=== PATIENT | male | born 1950 | race Caucasian/White ===

== ENCOUNTER → 2023-01-31 08:59 | Outpatient (BNVA) | payer OTHER, SELFPAY | PROVIDERS: PCP Internal Medicine Hematology; Visit Provider Internal Medicine | DX: Z51.81 Encounter for therapeutic drug level monitoring (principal); Z79.01 Long term (current) use of anticoagulants; Z95.2 Presence of prosthetic heart valve | CPT/HCPCS: 85610; 99202 ==

== ENCOUNTER → 2023-02-03 08:36 | Outpatient (BNVA) | payer OTHER, SELFPAY | PROVIDERS: PCP Internal Medicine Hematology; Visit Provider Internal Medicine | DX: Z51.81 Encounter for therapeutic drug level monitoring (principal); Z79.01 Long term (current) use of anticoagulants; Z95.2 Presence of prosthetic heart valve | CPT/HCPCS: 85610; 99211 ==

== ENCOUNTER → 2023-02-06 08:18 | Outpatient (BNVA) | payer OTHER, SELFPAY | PROVIDERS: PCP Internal Medicine Hematology; Visit Provider Internal Medicine | DX: Z95.2 Presence of prosthetic heart valve (principal); Z51.81 Encounter for therapeutic drug level monitoring; Z79.01 Long term (current) use of anticoagulants | CPT/HCPCS: 85610; 99211 ==

== ENCOUNTER → 2023-02-10 08:01 | Outpatient (BNVA) | payer OTHER, SELFPAY | PROVIDERS: PCP Internal Medicine Hematology; Visit Provider Internal Medicine | DX: Z95.2 Presence of prosthetic heart valve (principal); Z51.81 Encounter for therapeutic drug level monitoring; Z79.01 Long term (current) use of anticoagulants | CPT/HCPCS: 85610; 99211 ==

== ENCOUNTER → 2023-02-13 08:01 | Outpatient (BNVA) | payer OTHER, SELFPAY | PROVIDERS: PCP Internal Medicine Hematology; Visit Provider Internal Medicine | DX: Z95.2 Presence of prosthetic heart valve (principal); Z51.81 Encounter for therapeutic drug level monitoring; Z79.01 Long term (current) use of anticoagulants | CPT/HCPCS: 85610; 99211 ==

== ENCOUNTER → 2023-02-19 08:03 | Outpatient (BNVA) | payer OTHER, SELFPAY | PROVIDERS: PCP Internal Medicine Hematology; Visit Provider Internal Medicine | DX: Z51.81 Encounter for therapeutic drug level monitoring (principal); Z79.01 Long term (current) use of anticoagulants; Z95.2 Presence of prosthetic heart valve | CPT/HCPCS: 85610; 99211 ==

== ENCOUNTER → 2023-02-25 08:17 | Outpatient (BNVA) | payer OTHER, SELFPAY | PROVIDERS: PCP Internal Medicine Hematology; Visit Provider Internal Medicine | DX: Z51.81 Encounter for therapeutic drug level monitoring (principal); Z79.01 Long term (current) use of anticoagulants; Z95.2 Presence of prosthetic heart valve | CPT/HCPCS: 85610; 99211 ==

== ENCOUNTER → 2023-03-05 08:26 | Outpatient (BNVA) | payer OTHER, SELFPAY | PROVIDERS: PCP Internal Medicine Hematology; Visit Provider Internal Medicine | DX: Z51.81 Encounter for therapeutic drug level monitoring (principal); Z79.01 Long term (current) use of anticoagulants; Z95.2 Presence of prosthetic heart valve | CPT/HCPCS: 85610; 99211 ==

== ENCOUNTER 2023-03-12 08:18 | Outpatient (AMB) | payer OTHER, SELFPAY ==
--- NOTE | 2023-03-12 08:52 | MHC.OFFVISCO ---
Intake Intake Visit Reasons: Anticoagulation Allergies No Known Allergies Allergy (Verified 03/12/23 08:57) Medication List - Last Reconciled 03/12/23 by Yen Mitchell RN aspirin (Adult Aspirin Regimen) 81 mg PO DAILY atenolol 25 mg PO DAILY atorvastatin 20 mg PO DAILY clonazepam (Klonopin) 1 mg PO .prn dutasteride (Avodart) 0.5 mg PO DAILY irbesartan 75 mg PO DAILY warfarin 5 mg See Protocol PO DAILY Nursing Note INR: 2.4- in therapeutic range Medications and supplements reviewed- no changes No changes in health, diet, medications, or supplements, Denies any signs and symptoms of bleeding or bruising or clotting. 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 Illness/Depression: Yes (ANXIETY) Coding Level of Care Code Est Patient Level 1 Diagnoses Current use of anticoagulant therapy Z79.01 Results AMB INR Fingerstick AMB INR Fingerstick 2.4 Last Edit by Yen Mitchell RN on 03/12/23 08:53 Assessment & Plan Assessment & Plan (1) Current use of anticoagulant therapy: Code(s): Z79.01 - [facility] (current) use of anticoagulants Category: Medical
[2023-03-12 08:54] LABS: Prothrombin Time Whole Bld POC 29.2 sec (11.1-13.5); ~PT, ~INR - Anti Coag Clinic 2.4 (0.9-1.1)
== END 2023-03-12 09:00 | disposition home or self-care (01) ==
LOC: HO.ACS 08:18
PROVIDERS: PCP Internal Medicine Hematology; Visit Provider Internal Medicine
DX: Z79.01 Long term (current) use of anticoagulants (principal)

== ENCOUNTER → 2023-03-12 08:18 | Outpatient (BNVA) | payer OTHER, SELFPAY | PROVIDERS: PCP Internal Medicine Hematology; Visit Provider Internal Medicine | DX: Z51.81 Encounter for therapeutic drug level monitoring (principal); Z79.01 Long term (current) use of anticoagulants; Z95.2 Presence of prosthetic heart valve | CPT/HCPCS: 85610; 99211 ==

== ENCOUNTER 2023-03-27 08:25 | Outpatient (AMB) | payer OTHER, SELFPAY ==
--- NOTE | 2023-03-27 08:44 | MHC.OFFVISCO ---
Intake Intake Visit Reasons: Anticoagulation Allergies No Known Allergies Allergy (Verified 03/27/23 08:33) Medication List - Last Reconciled 03/27/23 by Madhavi Bella RN aspirin (Adult Aspirin Regimen) 81 mg PO DAILY atenolol 25 mg PO DAILY atorvastatin 20 mg PO DAILY clonazepam (Klonopin) 1 mg PO .prn dutasteride (Avodart) 0.5 mg PO DAILY irbesartan 75 mg PO DAILY warfarin 5 mg See Protocol PO DAILY Nursing Note Amb to ACS feeling well Medications and supplements reviewed No changes in health, diet, medications, or supplements Denies any unusual signs and symptoms of bruising, bleeding Denies any new Chest pain, SOB, or clotting INR: 2.6 in therapeutic range Nutritional guidance given: balance greens and reds in diet, in moderation, be consistent Dose: continue usual dosing; 5mg daily F/U INR: 18 days, is having bloodwork from caseworker 04/07 Patient verbalizes understanding of instructions given with accurate read back/ teach back of dosing Anti-Coag Initial Assessment Social Hx Patient Tobacco Use Status: Never used Tobacco alcohol intake: never Cardiovascular Hx: HTN and Other (AORTIC VALVL TAVR 01/02/22- R/T STENOSIS- MOTHER HX ) Blood Disorder Hx: Hyperlipidemia Hx: Prostate (BPH) Neurological Hx: Other (ANXIETY ) 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 Illness/Depression: Yes (ANXIETY) Coding Level of Care Code Est Patient Level 1 Diagnoses Current use of anticoagulant therapy Z79.01 Time Spent (min) 15 Results AMB INR Fingerstick AMB INR Fingerstick 2.6 Last Edit by Madhavi Bella RN on 03/27/23 08:42 INR is in range Assessment & Plan Assessment & Plan (1) Current use of anticoagulant therapy: Code(s): Z79.01 - [facility] (current) use of anticoagulants Category: Medical
[2023-03-27 09:26] LABS: Prothrombin Time Whole Bld POC 30.6 sec (11.1-13.5); ~PT, ~INR - Anti Coag Clinic 2.6 (0.9-1.1)
== END 2023-03-27 08:51 | disposition home or self-care (01) ==
LOC: HO.ACS 08:25
PROVIDERS: PCP Internal Medicine Hematology; Visit Provider Internal Medicine
DX: Z79.01 Long term (current) use of anticoagulants (principal)

== ENCOUNTER → 2023-03-27 08:25 | Outpatient (BNVA) | payer OTHER, SELFPAY | PROVIDERS: PCP Internal Medicine Hematology; Visit Provider Internal Medicine | DX: Z51.81 Encounter for therapeutic drug level monitoring (principal); Z79.01 Long term (current) use of anticoagulants; Z95.2 Presence of prosthetic heart valve | CPT/HCPCS: 85610; 99211 ==

== ENCOUNTER 2023-04-29 07:59 | Outpatient (AMB) | payer OTHER, SELFPAY ==
--- NOTE | 2023-04-29 08:09 | MHC.OFFVISCO ---
Intake Intake Visit Reasons: Anticoagulation Allergies No Known Allergies Allergy (Verified 04/29/23 08:04) Medication List - Last Reconciled 04/29/23 by Yen Mitchell RN aspirin (Adult Aspirin Regimen) 81 mg PO DAILY atenolol 25 mg PO DAILY atorvastatin 20 mg PO DAILY clonazepam (Klonopin) 1 mg PO .prn dutasteride (Avodart) 0.5 mg PO DAILY irbesartan 75 mg PO DAILY warfarin 5 mg See Protocol PO DAILY Nursing Note INR: 2.5- in therapeutic range Medications and supplements reviewed- no changes No changes in health, diet, medications, or supplements, Denies any signs and symptoms of bleeding or bruising or clotting. 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 Illness/Depression: Yes (ANXIETY) Coding Level of Care Code Est Patient Level 1 Diagnoses Current use of anticoagulant therapy Z79.01 Assessment & Plan Assessment & Plan (1) Current use of anticoagulant therapy: Code(s): Z79.01 - extermination supervisor (current) use of anticoagulants Category: Medical
[2023-04-29 08:10] LABS: Prothrombin Time Whole Bld POC 29.8 sec (11.1-13.5); ~PT, ~INR - Anti Coag Clinic 2.5 (0.9-1.1)
== END 2023-04-29 08:17 | disposition home or self-care (01) ==
LOC: HO.ACS 07:59
PROVIDERS: PCP Internal Medicine Hematology; Visit Provider Internal Medicine
DX: Z79.01 Long term (current) use of anticoagulants (principal)

== ENCOUNTER → 2023-04-29 07:59 | Outpatient (BNVA) | payer OTHER, SELFPAY | PROVIDERS: PCP Internal Medicine Hematology; Visit Provider Internal Medicine | DX: Z95.2 Presence of prosthetic heart valve (principal); Z51.81 Encounter for therapeutic drug level monitoring; Z79.01 Long term (current) use of anticoagulants | CPT/HCPCS: 85610; 99211 ==

== ENCOUNTER 2023-05-27 07:58 | Outpatient (AMB) | payer OTHER, SELFPAY ==
[2023-05-27 08:15] LABS: Prothrombin Time Whole Bld POC 22.7 sec (11.1-13.5); ~PT, ~INR - Anti Coag Clinic 1.9 (0.9-1.1)
--- NOTE | 2023-05-27 08:21 | MHC.OFFVISCO ---
Intake Intake Visit Reasons: Anticoagulation Allergies No Known Allergies Allergy (Verified 05/27/23 08:09) Medication List - Last Reconciled 05/27/23 by Madhavi Bella RN aspirin (Adult Aspirin Regimen) 81 mg PO DAILY atenolol 25 mg PO DAILY atorvastatin 20 mg PO DAILY clonazepam (Klonopin) 1 mg PO .prn dutasteride (Avodart) 0.5 mg PO DAILY irbesartan 75 mg PO DAILY warfarin 5 mg See Protocol PO DAILY Nursing Note Amb to ACS feeling well Medications and supplements reviewed, sts he had his cardiology appt last week at [facility] and the gradient of thickening has decreased from 20 to 9, sts his cardiologoist sts he can come off the warfarin end of July and they will do an echo 3 months after that No other changes in health, diet, medications, or supplements Denies any unusual signs and symptoms of bruising, bleeding Denies any new Chest pain, SOB, or clotting INR: 1.9 just below therapeutic range, sts he hasn't changed diet, not aware of any extra greens, maybe less reds ([place] tomatoes) Nutritional guidance given: no greens today then balance greens and reds in diet Dose: already took warfarin today so will increase to 7.5mg tomorrow (vs 5mg) then resume usual dosing;5mg daily F/U INR: 4 weeks Patient verbalizes understanding of instructions given with accurate read back/ teach back of dosing Anti-Coag Initial Assessment Social Hx Patient Tobacco Use Status: Never used Tobacco alcohol intake: never Cardiovascular Hx: HTN and Other (AORTIC VALVL TAVR 01/02/22- R/T STENOSIS- MOTHER HX ) Blood Disorder Hx: Hyperlipidemia Hx: Prostate (BPH) Neurological Hx: Other (ANXIETY ) Cancer HX: Yes (LYMPHOMA - 1 YEAR AGO - ABD [facility]- NON HODGKINS LYMPHOMA - MONITORED ) Psych. Illness/Depression: Yes (ANXIETY) Coding Level of Care Code Est Patient Level 1 Diagnoses Current use of anticoagulant therapy Z79.01 Time Spent (min) 15 Assessment & Plan Assessment & Plan (1) Current use of anticoagulant therapy: Code(s): Z79.01 - [facility] (current) use of anticoagulants Category: Medical
== END 2023-05-27 08:28 | disposition home or self-care (01) ==
LOC: HO.ACS 07:58
PROVIDERS: PCP Internal Medicine Hematology; Visit Provider Internal Medicine
DX: Z79.01 Long term (current) use of anticoagulants (principal)

== ENCOUNTER → 2023-05-27 07:58 | Outpatient (BNVA) | payer OTHER, SELFPAY | PROVIDERS: PCP Internal Medicine Hematology; Visit Provider Internal Medicine | DX: Z95.2 Presence of prosthetic heart valve (principal); Z51.81 Encounter for therapeutic drug level monitoring; Z79.01 Long term (current) use of anticoagulants | CPT/HCPCS: 85610; 99211 ==

== ENCOUNTER 2023-06-26 08:17 | Outpatient (AMB) | payer OTHER, SELFPAY ==
[2023-06-26 08:24] LABS: Prothrombin Time Whole Bld POC 30.3 sec (11.1-13.5); ~PT, ~INR - Anti Coag Clinic 2.5 (0.9-1.1)
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
== END 2023-06-26 08:35 | disposition home or self-care (01) ==
LOC: HO.ACS 08:17
PROVIDERS: PCP Internal Medicine Hematology; Visit Provider Internal Medicine
DX: Z79.01 Long term (current) use of anticoagulants (principal)

== ENCOUNTER → 2023-06-26 08:17 | Outpatient (BNVA) | payer OTHER, SELFPAY | PROVIDERS: PCP Internal Medicine Hematology; Visit Provider Internal Medicine | DX: Z95.2 Presence of prosthetic heart valve (principal); Z51.81 Encounter for therapeutic drug level monitoring; Z79.01 Long term (current) use of anticoagulants | CPT/HCPCS: 85610; 99211 ==

== ENCOUNTER 2023-07-31 08:04 | Outpatient (AMB) | payer OTHER, SELFPAY ==
--- NOTE | 2023-07-31 08:32 | MHC.OFFVISCO ---
Intake Intake Visit Reasons: Anticoagulation Allergies No Known Allergies Allergy (Verified 07/31/23 08:17) Medication List - Last Reconciled 07/31/23 by Aida Alfaro RN aspirin (Adult Aspirin Regimen) 81 mg PO DAILY atenolol 25 mg PO DAILY atorvastatin 20 mg PO DAILY clonazepam (Klonopin) 1 mg PO .prn dutasteride (Avodart) 0.5 mg PO DAILY irbesartan 75 mg PO DAILY warfarin 5 mg See Protocol PO DAILY Nursing Note INR: 1.0 in therapeutic range FOR BEING OFF WARFARIN Medications and supplements reviewed PT IS GOING OFF WARFARIN [place] [facility] [facility] , Denies any signs and symptoms of bleeding or bruising or clotting. 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
== END 2023-07-31 08:36 | disposition home or self-care (01) ==
LOC: HO.ACS 08:04
PROVIDERS: PCP Internal Medicine Hematology; Visit Provider Internal Medicine
DX: Z79.01 Long term (current) use of anticoagulants (principal)

== ENCOUNTER → 2023-07-31 08:04 | Outpatient (BNVA) | payer OTHER, SELFPAY | PROVIDERS: PCP Internal Medicine Hematology; Visit Provider Internal Medicine | DX: Z95.2 Presence of prosthetic heart valve (principal); Z51.81 Encounter for therapeutic drug level monitoring; Z79.01 Long term (current) use of anticoagulants | CPT/HCPCS: 85610; 99211 ==

== ENCOUNTER 2023-10-02 09:53 | Outpatient (AMB) | payer OTHER, SELFPAY ==
[2023-10-02 10:13] LABS: Prothrombin Time Whole Bld POC 23.9 sec (11.1-13.5)
--- NOTE | 2023-10-02 10:34 | MHC.OFFVISCO ---
Intake Intake Visit Reasons: Anticoagulation Allergies No Known Allergies Allergy (Verified 10/02/23 10:15) Medication List - Last Reconciled 10/02/23 by Aida Alfaro RN aspirin (Adult Aspirin Regimen) 81 mg PO DAILY atenolol 25 mg PO DAILY atorvastatin 20 mg PO DAILY clonazepam (Klonopin) 1 mg PO .prn dutasteride (Avodart) 0.5 mg PO DAILY irbesartan 75 mg PO DAILY nirmatrelvir-ritonavir 300 mg (150 mg x 2)-100 mg (Paxlovid) 0 ea PO warfarin 5 mg See Protocol PO DAILY Nursing Note INR: 2.0 in therapeutic range Medications and supplements reviewed BACK ON WARFARIN DUE TO VALVE THICKENING - DOAC NOT RECOMMENDED BY LILIA + TOMAS, STARTED PAXLOVID LAST FRIDAY, COMPLETED YESTERDAY, PAXLOVID MAY POSSBILY LOWER THE INR UP TO 2 WEEKS PER MICROMEDEX Denies any signs and symptoms of bleeding or bruising or clotting. 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 Illness/Depression: Yes (ANXIETY) Coding Level of Care Code Est Patient Level 1 Diagnoses Current use of anticoagulant therapy Z79.01 Assessment & Plan Assessment & Plan (1) Current use of anticoagulant therapy: Code(s): Z79.01 - detention (current) use of anticoagulants Category: Medical
== END 2023-10-02 10:40 | disposition home or self-care (01) ==
LOC: HO.ACS 09:53
PROVIDERS: PCP Internal Medicine Hematology; Visit Provider Internal Medicine
DX: Z79.01 Long term (current) use of anticoagulants (principal)

== ENCOUNTER → 2023-10-02 09:53 | Outpatient (BNVA) | payer OTHER, SELFPAY | PROVIDERS: PCP Internal Medicine Hematology; Visit Provider Internal Medicine | DX: Z95.2 Presence of prosthetic heart valve (principal); Z51.81 Encounter for therapeutic drug level monitoring; Z79.01 Long term (current) use of anticoagulants | CPT/HCPCS: 85610; 99211 ==

== ENCOUNTER 2023-10-07 08:51 | Outpatient (AMB) | payer OTHER, SELFPAY ==
[2023-10-07 08:58] LABS: Prothrombin Time Whole Bld POC 26.3 sec (11.1-13.5); ~PT, ~INR - Anti Coag Clinic 2.2 (0.9-1.1)
--- NOTE | 2023-10-07 09:02 | MHC.OFFVISCO ---
Intake Intake Visit Reasons: Anticoagulation Allergies No Known Allergies Allergy (Verified 10/07/23 08:51) Medication List - Last Reconciled 10/07/23 by Madhavi Espinoza RN aspirin (Adult Aspirin Regimen) 81 mg PO DAILY atenolol 25 mg PO DAILY atorvastatin 20 mg PO DAILY clonazepam (Klonopin) 1 mg PO .prn dutasteride (Avodart) 0.5 mg PO DAILY irbesartan 75 mg PO DAILY nirmatrelvir-ritonavir 300 mg (150 mg x 2)-100 mg (Paxlovid) 0 ea PO warfarin 5 mg See Protocol PO DAILY Nursing Note INR: 2.2 in therapeutic range Medications and supplements reviewed No changes in health, diet, medications, or supplements, Denies any signs and symptoms of bleeding or bruising or clotting. 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 Illness/Depression: Yes (ANXIETY) Coding Level of Care Code Est Patient Level 1 Diagnoses Current use of anticoagulant therapy Z79.01 Assessment & Plan Assessment & Plan (1) Current use of anticoagulant therapy: Code(s): Z79.01 - penit[facility]iary (current) use of anticoagulants Category: Medical
== END 2023-10-07 09:05 | disposition home or self-care (01) ==
LOC: HO.ACS 08:51
PROVIDERS: PCP Internal Medicine Hematology; Visit Provider Internal Medicine
DX: Z79.01 Long term (current) use of anticoagulants (principal)

== ENCOUNTER → 2023-10-07 08:51 | Outpatient (BNVA) | payer OTHER, SELFPAY | PROVIDERS: PCP Internal Medicine Hematology; Visit Provider Internal Medicine | DX: Z95.2 Presence of prosthetic heart valve (principal); Z51.81 Encounter for therapeutic drug level monitoring; Z79.01 Long term (current) use of anticoagulants | CPT/HCPCS: 85610; 99211 ==

== ENCOUNTER 2023-10-21 09:35 | Outpatient (AMB) | payer OTHER, SELFPAY ==
[2023-10-21 09:42] LABS: Prothrombin Time Whole Bld POC 28.3 sec (11.1-13.5); ~PT, ~INR - Anti Coag Clinic 2.4 (0.9-1.1)
--- NOTE | 2023-10-21 09:48 | MHC.OFFVISCO ---
Intake Intake Visit Reasons: Anticoagulation Allergies No Known Allergies Allergy (Verified 10/21/23 09:37) Medication List - Last Reconciled 10/21/23 by Madhavi Espinoza RN aspirin (Adult Aspirin Regimen) 81 mg PO DAILY atenolol 25 mg PO DAILY atorvastatin 20 mg PO DAILY clonazepam (Klonopin) 1 mg PO .prn dutasteride (Avodart) 0.5 mg PO DAILY irbesartan 75 mg PO DAILY nirmatrelvir-ritonavir 300 mg (150 mg x 2)-100 mg (Paxlovid) 0 ea PO warfarin 5 mg See Protocol PO DAILY Nursing Note INR: 2.4 in therapeutic range of 2-3 Medications and supplements reviewed No changes in health, diet, medications, or supplements, Denies any signs and symptoms of bleeding or bruising or clotting. Bleeding, bruising, clotting discussed Nutritional guidance given Dose: continue usual dose of 5mg daily pt is planning to transition to home meter soon, has submitted paperwork. 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 Illness/Depression: Yes (ANXIETY) Coding Level of Care Code Est Patient Level 1 Diagnoses Current use of anticoagulant therapy Z79.01 Assessment & Plan Assessment & Plan (1) Current use of anticoagulant therapy: Code(s): Z79.01 - intermediate school teacher (current) use of anticoagulants Category: Medical
== END 2023-10-21 09:53 | disposition home or self-care (01) ==
LOC: HO.ACS 09:35
PROVIDERS: PCP Internal Medicine Hematology; Visit Provider Internal Medicine
DX: Z79.01 Long term (current) use of anticoagulants (principal)

== ENCOUNTER → 2023-10-21 09:35 | Outpatient (BNVA) | payer OTHER, SELFPAY | PROVIDERS: PCP Internal Medicine Hematology; Visit Provider Internal Medicine | DX: Z95.2 Presence of prosthetic heart valve (principal); Z51.81 Encounter for therapeutic drug level monitoring; Z79.01 Long term (current) use of anticoagulants | CPT/HCPCS: 85610; 99211 ==

== ENCOUNTER → 2023-11-11 11:18 | Outpatient (BNVA) | payer OTHER, SELFPAY | PROVIDERS: PCP Internal Medicine Hematology; Visit Provider Internal Medicine ==

== ENCOUNTER 2023-12-10 08:38 | Outpatient (AMB) | payer OTHER, SELFPAY ==
[2023-12-10 08:48] LABS: Prothrombin Time Whole Bld POC 23.6 sec (11.1-13.5)
--- NOTE | 2023-12-10 08:48 | MHC.OFFVISCO ---
Intake Intake Visit Reasons: Anticoagulation Allergies No Known Allergies Allergy (Verified 12/10/23 08:40) Nursing Note PT.HAS STARTED FLOMAX AND TADALAFIL(FOR BPH). NEITHER OF THESE MEDS WILL INTERACT WITH WARFARIN. PT.DENIES ANY CP,SOB OR SX OF BLEEDING. CONTINUE PRESENT DOSE AND FOLLOW-UIP IN 4 WEEKS GOOD UNDERSTANDING OF DOSING INSTR. 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 Illness/Depression: Yes (ANXIETY) Coding Level of Care Code Est Patient Level 1 Diagnoses Current use of anticoagulant therapy Z79.01 Assessment & Plan Assessment & Plan (1) Current use of anticoagulant therapy: Code(s): Z79.01 - ad terminal makeup operator (current) use of anticoagulants Category: Medical
--- NOTE | 2023-12-10 08:49 | MHC.OFFVISCO ---
Intake Intake Visit Reasons: Anticoagulation Allergies No Known Allergies Allergy (Verified 12/10/23 08:40) Nursing Note PT.HAS STARTED FLOMAX AND TADALAFIL(FOR BPH) NO CP,SOB,DIET/MED CHANGES,FALLS ORN SX OF BLEEDING. CONTINUE PRESENT DOSE AND FOLLOW-UP IN 4 WEEKS. GOOD UNDERSTANDING OF DOSING INSTR. 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 Illness/Depression: Yes (ANXIETY) Coding Level of Care Code Est Patient Level 1 Diagnoses Current use of anticoagulant therapy Z79.01 Assessment & Plan Assessment & Plan (1) Current use of anticoagulant therapy: Code(s): Z79.01 - residence counselor (current) use of anticoagulants Category: Medical
--- NOTE | 2023-12-10 09:43 | MHC.OFFVISCO ---
Intake Intake Visit Reasons: Anticoagulation Allergies No Known Allergies Allergy (Verified 12/10/23 08:40) Nursing Note PT.HAS STARTED FLOMAX AND TADALAFIL(FOR BPH) NO CP,SOB,DIET/MED CHANGES,FALLS ORN SX OF BLEEDING. CONTINUE PRESENT DOSE AND FOLLOW-UP IN 4 WEEKS. GOOD UNDERSTANDING OF DOSING INSTR. 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 Illness/Depression: Yes (ANXIETY) Coding Diagnoses Current use of anticoagulant therapy Z79.01 Assessment & Plan Assessment & Plan (1) Current use of anticoagulant therapy: Code(s): Z79.01 - terminal computer operator (current) use of anticoagulants Category: Medical
== END 2023-12-10 08:59 | disposition home or self-care (01) ==
LOC: HO.ACS 08:38
PROVIDERS: PCP Internal Medicine Hematology; Visit Provider Internal Medicine
DX: Z79.01 Long term (current) use of anticoagulants (principal)

== ENCOUNTER → 2023-12-10 08:38 | Outpatient (BNVA) | payer OTHER, SELFPAY | PROVIDERS: PCP Internal Medicine Hematology; Visit Provider Internal Medicine | DX: Z95.2 Presence of prosthetic heart valve (principal); Z51.81 Encounter for therapeutic drug level monitoring; Z79.01 Long term (current) use of anticoagulants | CPT/HCPCS: 85610; 99211 ==

== ENCOUNTER 2024-01-07 08:18 | Outpatient (AMB) | payer OTHER, SELFPAY ==
[2024-01-07 08:39] LABS: Prothrombin Time Whole Bld POC 24.7 sec (11.1-13.5); ~PT, ~INR - Anti Coag Clinic 2.1 (0.9-1.1)
--- NOTE | 2024-01-07 08:53 | MHC.OFFVISCO ---
Intake Intake Visit Reasons: Anticoagulation Allergies No Known Allergies Allergy (Verified 01/07/24 08:30) Medication List - Last Reconciled 01/07/24 by Aida Alfaro RN aspirin (Adult Aspirin Regimen) 81 mg PO DAILY atenolol 25 mg PO DAILY atorvastatin 20 mg PO DAILY clonazepam (Klonopin) 1 mg PO .prn dutasteride (Avodart) 0.5 mg PO DAILY irbesartan 150 mg PO DAILY tadalafil 5 mg PO DAILY tamsulosin (Flomax) 0.4 mg PO BEDTIME warfarin 5 mg See Protocol PO DAILY Nursing Note Pt bought own meter from grid inspector, brought in for meter to meter correlation, he stated he had several error msgs as he was figuring the meter out, brief poc technique explained- enc to completely read instructions, education for entire meter booked for 01/27/24. INR: 21 in therapeutic range pt meter 2.0 Medications and supplements reviewed- B/P MED INCREASED BY ROLL ICER Denies any signs and symptoms of bleeding or bruising or clotting. Bleeding, bruising, clotting discussed Nutritional guidance given - PT STATES HE HAS BEEN EATING PRUNES AND NOTICED THAT HIS INR HAS BEEN LOWER AND COULD HEAR THE DIFFERENCE WITH HIS VALVE, he found they do contain vit k , WANTS TO KEEP PRUNES IN HIS DIET Dose: INCEASE WARFARIN DOSE 7.5MG X 1 DAY/ 5MG X 6 DAYS F/U INR: F/U INR 01/27/24 will discuss home testing next visit with pt and have sign home meter documentation. 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 Illness/Depression: Yes (ANXIETY) Coding Level of Care Code Est Patient Level 1 Diagnoses Current use of anticoagulant therapy Z79.01 Assessment & Plan Assessment & Plan (1) Current use of anticoagulant therapy: Code(s): Z79.01 - remote computer terminal operator (current) use of anticoagulants Category: Medical Medications: New cholecalciferol (vitamin D3) 25 mcg PO DAILY
== END 2024-01-07 09:09 | disposition home or self-care (01) ==
PROVIDERS: PCP Internal Medicine Hematology; Visit Provider Internal Medicine
DX: Z79.01 Long term (current) use of anticoagulants (principal)

== ENCOUNTER → 2024-01-07 08:18 | Outpatient (BNVA) | payer OTHER, SELFPAY | PROVIDERS: PCP Internal Medicine Hematology; Visit Provider Internal Medicine | DX: Z95.2 Presence of prosthetic heart valve (principal); Z51.81 Encounter for therapeutic drug level monitoring; Z79.01 Long term (current) use of anticoagulants | CPT/HCPCS: 85610; 99211 ==

== ENCOUNTER 2024-01-27 07:56 | Outpatient (AMB) | payer OTHER, SELFPAY ==
[2024-01-27 08:13] LABS: Prothrombin Time Whole Bld POC 27.3 sec (11.1-13.5); ~PT, ~INR - Anti Coag Clinic 2.3 (0.9-1.1)
--- NOTE | 2024-01-27 08:35 | MHC.OFFVISCO ---
Intake Intake Visit Reasons: Anticoagulation Allergies No Known Allergies Allergy (Verified 01/27/24 08:03) Medication List - Last Reconciled 01/27/24 by Aida Alfaro RN aspirin (Adult Aspirin Regimen) 81 mg PO DAILY atenolol 25 mg PO DAILY atorvastatin 20 mg PO DAILY cholecalciferol (vitamin D3) 25 mcg PO DAILY clonazepam (Klonopin) 1 mg PO .prn dutasteride (Avodart) 0.5 mg PO DAILY irbesartan 150 mg PO DAILY tadalafil 5 mg PO DAILY tamsulosin (Flomax) 0.4 mg PO BEDTIME warfarin 5 mg See Protocol PO DAILY Nursing Note Complete meter training with patient meter to meter correlation matched pt demiostrated proficient meter skills with understanding pt agrees to come monthly to ACS appt or prn result, and to call with out of range INRs and to notify ACS of when testing, with health or medication changes,and still report any s/sx of bleeding to ACS and his health care providers. He is to have an Echo with cardiology- it is possible he may go on a DOAC - although they have not been approved for Valvular disease- some cardiologists are using them. Pt to notfy ACS INR: 2.3 in therapeutic range Medications and supplements reviewed No changes in health, diet, medications, or supplements, Denies any signs and symptoms of bleeding or bruising or clotting. 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 Illness/Depression: Yes (ANXIETY) Coding Level of Care Code Est Patient Level 1 Diagnoses Current use of anticoagulant therapy Z79.01 Assessment & Plan Assessment & Plan (1) Current use of anticoagulant therapy: Code(s): Z79.01 - insurance sales specialist (current) use of anticoagulants Category: Medical
== END 2024-01-27 08:41 | disposition home or self-care (01) ==
LOC: HO.ACS 07:56
PROVIDERS: PCP Internal Medicine Hematology; Visit Provider Internal Medicine
DX: Z79.01 Long term (current) use of anticoagulants (principal)

== ENCOUNTER → 2024-01-27 07:56 | Outpatient (BNVA) | payer OTHER, SELFPAY | PROVIDERS: PCP Internal Medicine Hematology; Visit Provider Internal Medicine | DX: Z95.2 Presence of prosthetic heart valve (principal); Z51.81 Encounter for therapeutic drug level monitoring; Z79.01 Long term (current) use of anticoagulants | CPT/HCPCS: 85610; 99211 ==

== ENCOUNTER 2024-02-24 08:00 | Outpatient (AMB) | payer OTHER, SELFPAY ==
[2024-02-24 08:06] LABS: Prothrombin Time Whole Bld POC 26.9 sec (11.1-13.5); ~PT, ~INR - Anti Coag Clinic 2.2 (0.9-1.1)
--- NOTE | 2024-02-24 08:14 | MHC.OFFVISCO ---
Intake Intake Visit Reasons: Anticoagulation Allergies No Known Allergies Allergy (Verified 02/24/24 08:01) Medication List - Last Reconciled 02/24/24 by Madhavi Espinoza RN aspirin (Adult Aspirin Regimen) 81 mg PO DAILY atenolol 25 mg PO DAILY atorvastatin 20 mg PO DAILY cholecalciferol (vitamin D3) 25 mcg PO DAILY clonazepam (Klonopin) 1 mg PO .prn dutasteride (Avodart) 0.5 mg PO DAILY irbesartan 150 mg PO DAILY tadalafil 5 mg PO DAILY tamsulosin (Flomax) 0.4 mg PO BEDTIME warfarin 5 mg See Protocol PO DAILY Nursing Note INR: 2.2 in therapeutic range of 2-3 Medications and supplements reviewed No changes in health, diet, medications, or supplements, Denies any signs and symptoms of bleeding or bruising or clotting. 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 Illness/Depression: Yes (ANXIETY) Coding Level of Care Code Est Patient Level 1 Diagnoses Current use of anticoagulant therapy Z79.01 Assessment & Plan Assessment & Plan (1) Current use of anticoagulant therapy: Code(s): Z79.01 - intermediate teacher (current) use of anticoagulants Category: Medical
== END 2024-02-24 08:18 | disposition home or self-care (01) ==
LOC: HO.ACS 08:00
PROVIDERS: PCP Internal Medicine Hematology; Visit Provider Internal Medicine
DX: Z79.01 Long term (current) use of anticoagulants (principal)

== ENCOUNTER → 2024-02-24 08:00 | Outpatient (BNVA) | payer OTHER, SELFPAY | PROVIDERS: PCP Internal Medicine Hematology; Visit Provider Internal Medicine | DX: Z95.2 Presence of prosthetic heart valve (principal); Z51.81 Encounter for therapeutic drug level monitoring; Z79.01 Long term (current) use of anticoagulants | CPT/HCPCS: 85610; 99211 ==

== ENCOUNTER 2024-03-24 08:05 | Outpatient (AMB) | payer OTHER, SELFPAY ==
--- NOTE | 2024-03-24 08:21 | MHC.OFFVISCO ---
Intake Intake Visit Reasons: Anticoagulation Allergies No Known Allergies Allergy (Verified 03/24/24 08:15) Medication List - Last Reconciled 03/24/24 by Yen Mitchell RN aspirin (Adult Aspirin Regimen) 81 mg PO DAILY atenolol 25 mg PO DAILY atorvastatin 20 mg PO DAILY cholecalciferol (vitamin D3) 25 mcg PO DAILY clonazepam (Klonopin) 1 mg PO .prn dutasteride (Avodart) 0.5 mg PO DAILY irbesartan 150 mg PO DAILY tadalafil 5 mg PO DAILY warfarin 5 mg See Protocol PO DAILY Nursing Note INR: 2.3- in therapeutic range of 2-3 Medications and supplements reviewed No changes in health, diet, medications, or supplements, Denies any signs and symptoms of bleeding or bruising or clotting. Bleeding, bruising, clotting discussed Nutritional guidance given Dose: 5mg x 6, 7.5mg x 1 F/U INR: 4 weeks Patient verbalizes understanding of instructions given pt has coag meter- date and time updated, reviewed test ing procedure with pt. 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 Illness/Depression: Yes (ANXIETY) Coding Level of Care Code Est Patient Level 1 Diagnoses Current use of anticoagulant therapy Z79.01 Assessment & Plan Assessment & Plan (1) Current use of anticoagulant therapy: Code(s): Z79.01 - senior care (current) use of anticoagulants Category: Medical Medications: New alfuzosin ER administer after the same meal each day 10 mg PO DAILY
[2024-03-24 08:22] LABS: ~PT, ~INR - Anti Coag Clinic 2.3 (0.9-1.1)
== END 2024-03-24 08:29 | disposition home or self-care (01) ==
LOC: HO.ACS 08:05
PROVIDERS: PCP Internal Medicine Hematology; Visit Provider Internal Medicine
DX: Z79.01 Long term (current) use of anticoagulants (principal)

== ENCOUNTER → 2024-03-24 08:05 | Outpatient (BNVA) | payer OTHER, SELFPAY | PROVIDERS: PCP Internal Medicine Hematology; Visit Provider Internal Medicine | DX: Z95.2 Presence of prosthetic heart valve (principal); Z51.81 Encounter for therapeutic drug level monitoring; Z79.01 Long term (current) use of anticoagulants | CPT/HCPCS: 85610; 99211 ==

== ENCOUNTER 2024-04-21 07:58 | Outpatient (AMB) | payer OTHER, SELFPAY ==
--- NOTE | 2024-04-21 08:09 | MHC.OFFVISCO ---
Intake Intake Visit Reasons: Anticoagulation Allergies No Known Allergies Allergy (Verified 04/21/24 07:59) Medication List - Last Reconciled 04/21/24 by Yen Mitchell RN alfuzosin ER 10 mg PO DAILY aspirin (Adult Aspirin Regimen) 81 mg PO DAILY atenolol 25 mg PO DAILY atorvastatin 20 mg PO DAILY cholecalciferol (vitamin D3) 25 mcg PO DAILY clonazepam (Klonopin) 1 mg PO .prn dutasteride (Avodart) 0.5 mg PO DAILY irbesartan 150 mg PO DAILY tadalafil 5 mg PO DAILY warfarin 5 mg See Protocol PO DAILY Nursing Note INR: 2.7- in therapeutic range of 2-3 Medications and supplements reviewed No changes in health, diet, medications, or supplements, Denies any signs and symptoms of bleeding or bruising or clotting. 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 Illness/Depression: Yes (ANXIETY) Coding Level of Care Code Est Patient Level 1 Diagnoses Current use of anticoagulant therapy Z79.01 Assessment & Plan Assessment & Plan (1) Current use of anticoagulant therapy: Code(s): Z79.01 - local intermodal truck driver (current) use of anticoagulants Category: Medical
[2024-04-21 08:10] LABS: Prothrombin Time Whole Bld POC 32.5 sec (11.1-13.5); ~PT, ~INR - Anti Coag Clinic 2.7 (0.9-1.1)
== END 2024-04-21 08:16 | disposition home or self-care (01) ==
LOC: HO.ACS 07:58
PROVIDERS: PCP Internal Medicine Hematology; Visit Provider Internal Medicine
DX: Z79.01 Long term (current) use of anticoagulants (principal)

== ENCOUNTER → 2024-04-21 07:58 | Outpatient (BNVA) | payer OTHER, SELFPAY | PROVIDERS: PCP Internal Medicine Hematology; Visit Provider Internal Medicine | DX: Z95.2 Presence of prosthetic heart valve (principal); Z51.81 Encounter for therapeutic drug level monitoring; Z79.01 Long term (current) use of anticoagulants | CPT/HCPCS: 85610; 99211 ==

== ENCOUNTER 2024-06-04 10:30 | Outpatient (AMB) | payer OTHER, SELFPAY ==
[2024-06-04 10:39] LABS: Prothrombin Time Whole Bld POC 23.1 sec (11.1-13.5); ~PT, ~INR - Anti Coag Clinic 1.9 (0.9-1.1)
--- NOTE | 2024-06-04 10:53 | MHC.OFFVISCO ---
Intake Intake Visit Reasons: Anticoagulation Allergies No Known Allergies Allergy (Verified 06/04/24 10:35) Medication List - Last Reconciled 06/04/24 by Aida Alfaro RN alfuzosin ER 10 mg PO DAILY aspirin (Adult Aspirin Regimen) 81 mg PO DAILY atenolol 25 mg PO DAILY atorvastatin 20 mg PO DAILY cholecalciferol (vitamin D3) 25 mcg PO DAILY clonazepam (Klonopin) 1 mg PO .prn dutasteride (Avodart) 0.5 mg PO DAILY irbesartan 150 mg PO DAILY tadalafil 5 mg PO DAILY warfarin 5 mg See Protocol PO DAILY Nursing Note INR 1.9 out of therapeutic range Medications and supplements reviewed Patient status: s/p retuximab tx 06/02/24 -for non hodkin lymphoma- will be weekly (fri) x 4 weeks pre med with tylenol , claritin and methylprednisalone Medications or supplements: immunotherapy Diet: good Denies any signs and symptoms of bleeding or clotting or unusual bruising Bleeding, bruising, clotting discussed Nutritional guidance given: avoid greens x 2 days Dose: booster dose today 7.5mg ( x 2 days this week) then resume 7.5mg x 1 day/ 5mg x 6 days F/U INR Date : 1 week from home meter then 06/18/24 in clinic or homemeter as he becomes immunocompromised ?? Patient verbalizing understanding of instructions given. 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 Illness/Depression: Yes (ANXIETY) Questionnaires HAS-BLED Does the patient had uncontrolled Hypertension?: No Does the patient have renal disease?: No Does the patient have liver disease?: No Does the patient have a history of stroke?: No Has the patient had major bleeding or predisposition to bleeding?: No Does the patient have labile INRs?: No Is the patient over 65 years of age?: Yes Is the patient on medications that gives them a predisposition to bleeding?: Yes Does the patient use alcohol?: No HAS-BLED Score: 2 CHADSVASC Age: 66-74 Gender: Male Does the patient have a history of CHF?: No Does the patient have a history of Hypertension?: Yes Does the patient have a history of Stroke/TIA/Thromboembolism?: No (VALVE THROMBOSIS) Does the patient have a history of Vascular Disease (prior MO, PAD or aortic plaque)?: Yes (valve) Does the patient have a history of Diabetes?: No CHADS VACS Score: 3 Sina Prediction Score Rsk VTE Active Cancer: Yes (LYMPHOMA) Previous VTE, excluding superficial vein thrombosis: No Reduced mobility: No Already known Thrombophilic Condition: Yes (VALVE PROCEDURE , AORTIC STENOSIS , LYMPHOMA) With-in last month Trauma and/or Surgery: No Elderly 70 year or older: Yes Heart and/or Respiratory Failure: No Acute Myocardial infarction and/or Ischemic Stroke: No (THE PT HAS NOT HAD AN MO OR A STROKE OR TIA BUT HAS HALT AND A TAVR 1 YEAR AGO ) Acute Infection and/or Rheumatologic Disorder: No Obesity (BMI 30 or greater): No Ongoing Hormonal Treatment: No Score: 7 Sina Score less than 4; Low Risk of VTE Sina Score 4 or greater; High Risk of VTE Coding Level of Care Code Est Patient Level 1 Diagnoses Current use of anticoagulant therapy Z79.01 Results AMB INR Fingerstick AMB INR Fingerstick 1.9 Last Edit by Aida Alfaro RN on 06/04/24 10:40 manual entry Assessment & Plan Assessment & Plan (1) Current use of anticoagulant therapy: Code(s): Z79.01 - marine oil terminal superintendent (current) use of anticoagulants Category: Medical
== END 2024-06-04 11:00 | disposition home or self-care (01) ==
LOC: HO.ACS 10:30
PROVIDERS: PCP Internal Medicine Hematology; Visit Provider Internal Medicine
DX: Z79.01 Long term (current) use of anticoagulants (principal)

== ENCOUNTER → 2024-06-04 10:30 | Outpatient (BNVA) | payer OTHER, SELFPAY | PROVIDERS: PCP Internal Medicine Hematology; Visit Provider Internal Medicine | DX: Z95.2 Presence of prosthetic heart valve (principal); Z79.01 Long term (current) use of anticoagulants; Z51.81 Encounter for therapeutic drug level monitoring | CPT/HCPCS: 85610; 99211 ==

== ENCOUNTER → 2024-06-11 13:35 | Outpatient (BNVA) | payer OTHER, SELFPAY | PROVIDERS: PCP Internal Medicine Hematology; Visit Provider Internal Medicine ==

== ENCOUNTER → 2024-06-16 14:50 | Outpatient (BNVA) | payer OTHER, SELFPAY | PROVIDERS: PCP Internal Medicine Hematology; Visit Provider Internal Medicine ==

== ENCOUNTER 2024-06-24 15:48 | Outpatient (AMB) | payer OTHER, SELFPAY ==
--- NOTE | 2024-06-24 15:58 | MHC.OFFVISCO ---
Intake Intake Visit Reasons: Anticoagulation Allergies No Known Allergies Allergy (Verified 06/16/24 14:57) Nursing Note INR: 2.3 in therapeutic range Medications and supplements reviewed PT COMPLETED 4 SERIES OF IMMUNO HTERAPY AND TOLERATED IT WELL, AND WILL RECEIVE MAINTENANCE THERAPY AGAIN X 4 WEEKS IN AUGUST. iNR HAS REMAINED STABLE Denies any signs and symptoms of bleeding or bruising or clotting. 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
== END 2024-06-24 16:01 | disposition home or self-care (01) ==
LOC: HO.ACS 15:48
PROVIDERS: PCP Internal Medicine Hematology; Visit Provider Internal Medicine
DX: Z79.01 Long term (current) use of anticoagulants (principal)

== ENCOUNTER → 2024-06-24 15:48 | Outpatient (BNVA) | payer OTHER, SELFPAY | PROVIDERS: PCP Internal Medicine Hematology; Visit Provider Internal Medicine | DX: Z95.2 Presence of prosthetic heart valve (principal); Z79.01 Long term (current) use of anticoagulants; Z51.81 Encounter for therapeutic drug level monitoring | CPT/HCPCS: 99211 ==

== ENCOUNTER 2024-07-23 09:29 | Outpatient (AMB) | payer OTHER, SELFPAY ==
--- NOTE | 2024-07-23 09:46 | MHC.OFFVISCO ---
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 Illness/Depression: Yes (ANXIETY) Coding Level of Care Code Est Patient Level 1 Diagnoses Current use of anticoagulant therapy Z79.01 Results AMB INR Fingerstick AMB INR Fingerstick 2.7 Last Edit by Aida Alfaro RN on 07/23/24 09:40 MANUAL ENTRY Assessment & Plan Assessment & Plan (1) Current use of anticoagulant therapy: Code(s): Z79.01 - senior living (current) use of anticoagulants Category: Medical
[2024-07-23 09:49] LABS: Prothrombin Time Whole Bld POC 32.6 sec (11.1-13.5); ~PT, ~INR - Anti Coag Clinic 2.7 (0.9-1.1)
== END 2024-07-23 09:53 | disposition home or self-care (01) ==
LOC: HO.ACS 09:29
PROVIDERS: PCP Internal Medicine Hematology; Visit Provider Internal Medicine
DX: Z79.01 Long term (current) use of anticoagulants (principal)

== ENCOUNTER → 2024-07-23 09:29 | Outpatient (BNVA) | payer OTHER, SELFPAY | PROVIDERS: PCP Internal Medicine Hematology; Visit Provider Internal Medicine | DX: Z95.2 Presence of prosthetic heart valve (principal); Z79.01 Long term (current) use of anticoagulants; Z51.81 Encounter for therapeutic drug level monitoring | CPT/HCPCS: 85610; 99211 ==

== ENCOUNTER 2024-09-07 08:58 | Outpatient (AMB) | payer OTHER, SELFPAY ==
[2024-09-07 09:08] LABS: ~PT, ~INR - Anti Coag Clinic 2.8 (0.9-1.1)
--- NOTE | 2024-09-07 09:16 | MHC.OFFVISCO ---
Intake Intake Visit Reasons: Anticoagulation Allergies No Known Allergies Allergy (Verified 09/07/24 09:01) Medication List - Last Reconciled 09/07/24 by Madhavi Espinoza, ZEUS alfuzosin ER 10 mg PO DAILY aspirin (Adult Aspirin Regimen) 81 mg PO DAILY atenolol 25 mg PO DAILY atorvastatin 20 mg PO DAILY chlorhexidine gluconate 0.12% PO cholecalciferol (vitamin D3) 25 mcg PO DAILY clonazepam (Klonopin) 1 mg PO .prn dutasteride (Avodart) 0.5 mg PO DAILY irbesartan 150 mg PO DAILY tadalafil 5 mg PO DAILY warfarin 5 mg See Protocol PO DAILY Nursing Note INR: 2.8 in therapeutic range of 2-3 Medications and supplements reviewed No changes in health, diet, medications, or supplements, Denies any signs and symptoms of bleeding or bruising or clotting. 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 Illness/Depression: Yes (ANXIETY) Coding Level of Care Code Est Patient Level 2 Diagnoses Current use of anticoagulant therapy Z79.01 Assessment & Plan Assessment & Plan (1) Current use of anticoagulant therapy: Code(s): Z79.01 - terminal gauger supervisor (current) use of anticoagulants Category: Medical
== END 2024-09-07 09:30 | disposition home or self-care (01) ==
LOC: HO.ACS 08:58
PROVIDERS: PCP Internal Medicine Hematology; Visit Provider Internal Medicine
DX: Z79.01 Long term (current) use of anticoagulants (principal)

== ENCOUNTER → 2024-09-07 08:58 | Outpatient (BNVA) | payer OTHER, SELFPAY | PROVIDERS: PCP Internal Medicine Hematology; Visit Provider Internal Medicine | DX: Z95.2 Presence of prosthetic heart valve (principal); Z79.01 Long term (current) use of anticoagulants; Z51.81 Encounter for therapeutic drug level monitoring | CPT/HCPCS: 85610; 99212 ==

== ENCOUNTER 2024-09-28 09:01 | Outpatient (AMB) | payer OTHER, SELFPAY ==
[2024-09-28 09:18] LABS: Prothrombin Time Whole Bld POC 35.5 sec (11.1-13.5)
--- NOTE | 2024-09-28 09:22 | MHC.OFFVISCO ---
Intake Intake Visit Reasons: Anticoagulation Allergies No Known Allergies Allergy (Verified 09/28/24 09:07) Medication List - Last Reconciled 09/28/24 by Madhavi Bella, ZEUS alfuzosin ER 10 mg PO DAILY aspirin (Adult Aspirin Regimen) 81 mg PO DAILY atenolol 25 mg PO DAILY atorvastatin 20 mg PO DAILY chlorhexidine gluconate 0.12% PO cholecalciferol (vitamin D3) 25 mcg PO DAILY clonazepam (Klonopin) 1 mg PO .prn dutasteride (Avodart) 0.5 mg PO DAILY irbesartan 150 mg PO DAILY tadalafil 5 mg PO DAILY warfarin 5 mg See Protocol PO DAILY Nursing Note Amb to [facility] feeling wel, pt brought in own home meter (not in the [facility] home meter program) sts he has the meter for emergencies if there are weather issues sts he also gets his INR drawn when he has his infusions Medications and supplements reviewed No other changes in health, diet, medications, or supplements, Denies any signs and symptoms of bleeding, bruising, or clotting. Bleeding, bruising, clotting discussed INR: 3.0 top of therapeutic range Dose: continue usual dosing 5mg x 3 days and 7.5mg x 4 days Nutritional guidance given: have a good green today to bring INR lower in range, eat a balanced diet and be consistent F/U INR: 4 weeks per pt request, sts he will be having his Infusion on Thursday 10/26 and will call us with INR on 10/27 pt used meter while in visit, had some issues with placing sample onto the strip, trouble shooting done and given stategies for better sample placement INR on meter 2.9 Patient verbalizes understanding of instructions given Anti-Coag Initial Assessment Social Hx Patient Tobacco Use Status: Never used Tobacco alcohol intake: never Cardiovascular Hx: HTN and Other Blood Disorder Hx: Hyperlipidemia Hx: Prostate Neurological Hx: Other 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 Illness/Depression: Yes (ANXIETY) Coding Level of Care Code Est Patient Level 2 Diagnoses Current use of anticoagulant therapy Z79.01 Time Spent (min) 30 Assessment & Plan Assessment & Plan (1) Current use of anticoagulant therapy: Code(s): Z79.01 - termite control servicer (current) use of anticoagulants Category: Medical
--- OUTSIDE RECORDS SUMMARY | 2024-09-28 09:25 | XMS_ITS ---
Author Organization Kody Morgan MD Address [address] [place] [id number] Care Team Providers Care Turntable Operator Name Role Phone Kody Morgan Primary Care Provider [phone] REASON FOR VISIT PET/CT Results - 08/12/24 Encounters Encounter Location Date Provider Diagnosis Kody Morgan MD [address] [facility] [address] [place] [id number] 08/13/2024 Kody Morgan Plan Of Treatment Next Appt Details Provider Name:Kody Jama ier, 11/08/2024 11:15:00 AM, [address], [address], [place], [place], [id number], Progress Notes * Joseph TALAVERADOB:[birth year] (73 yo M)Acc No.[id number]:08/13/2024 Patient:?Joseph Talavera :1950???Age:73 Y???Sex:Male Address:[address] [place], [address] * true * Date:? Generated for Christiani deonte/Brandi/eTransmitting on:?09/28/2024 09:25 AM EST
--- OUTSIDE RECORDS SUMMARY | 2024-09-28 09:25 | XMS_ITS | Encounter Summary ---
Author Organization [facility] Address [address] [place] [id number] Care Team Providers Care Land Acquisition Specialist Name Role Phone Renny Lieberman MD Unavailable [phone] Joseph Talavera MD Primary Care Provider [phone] Renny Lieberman MD Primary Care Provider [phone] Pcp, No Primary Care Provider Unavailabl e Encounter Details Date Type Department Care Team (Late Contact Info) Description 02/16/2021 Scanned Document [facility] [place] [address], [address] [place] [address] Renny Lieberman MD [address] [facility] [address] [place], [place] [id number] Social History Tobacco Use Types Packs/Day Years Used Date Smoking Tobacco: Never Smokeless Tobacco: Never Sex and Gender Information Value Date Recorded Sex Assigned at [facility] not to disclose 06/2024 8:09 PM EST Gender Identity Not on file Sexual Orientation Not on file documented as of this encounter Plan of Treatment Upcoming Encounters Date Type Department Care Team (Late Contact Info) Description 03/11/2025 11:30 AM EDT Appointment [facility] Department of Dermatology [place] [address] [place] [phone] Karolina Price PA-C [address] [place], [place] [id number] documented as of this encounter Visit Diagnoses Not on filedocumented in this encounter Care Teams Land Acquisition Specialist Relationship Specialty Start Date End Date Joseph Talavera MD [address] [place] [id number] PCP - General Internal Medicine 12/25/20 04/17/23 Renny Lieberman MD [address] [place] [address] PCP - General Cardiovascular Disease 04/18/23 01/06/24 Pcp, No PCP - General General Medicine 01/07/24 Renny Lieberman MD [address] [place] [address] Primary Map Compiler Cardiovascular Disease 12/13/20 documented as of this encounter
--- OUTSIDE RECORDS SUMMARY | 2024-09-28 09:25 | XMS_ITS ---
Author Organization Kody Morgan MD Address [address] [place], [place] [id number] Care Team Providers Care Forming Mill Operator Name Role Phone Kody Morgan Primary Care Provider Allergies No Known Allergies REASON FOR VISIT New patient/ est care Medications Medication SIG (Take, Route, Frequency, Duration) Notes Start Date End Date Status Atorvastatin Calcium 20 MG 1 tablet Oral ly Once a day Active Flomax 0.4 MG 1 capsule Orally Onc e a day Active KlonoPIN 1 MG 1 tablet Orally Once a day Active Vitamin D 25 MCG (1000 UT) 1 tablet Oral ly Once a day for 30 day(s) Active Tadalafil 5 MG 1 tablet as needed O rally Once a day for 30 day(s) Active Warfarin Sodium 5 MG 1 tablet Orally Onc e a day Active Avodart 0.5 MG 1 capsule Orally Onc e a day Active Atenolol 25 MG 1 tablet Orally Once a day Active Irbesartan 75 MG 2 tablets Orally Onc e a day Active Aspirin 81 81 MG 1 tablet Orally Once a day for 30 day(s) Active Social History Tobacco Use: Social History Observation Description Date Details (start date - stop date) Never Smoker NA - NA Tobacco Use/Smoking Question Answer Notes Patient is a nonsmoker Additional Findings: Tobacco Non-User Cu rrent non-smoker, currently using no form of tobacco Alcohol Screen Question Answer Notes Did you have a drink containing alcohol in the p ast year? No Points 0 Interpretation Negative Problems Problem Type SNOMED Code ICD Code Onset Dates Problem Status W/U Status Risk Notes Problem 6342888588353 S/P TAVR (transcatheter aortic valve replacement) (Z95.2) Active confirmed Problem 380393212 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 Problem 91652210 Essential hypertension (I10) Active confirmed Problem 83966189 Prostatism (N40.0) Active confirmed Problem 29102813 Hypercholesterem ia (E78.00) Active confirmed Vital Signs Blood pressure systolic 114 mm Hg 08/02/20 24 Blood pressure diastolic 52 mm Hg 024 Height 68 in 08/02/2024 Weight 163 lbs 08/02/2024 BMI 24.78 kg/m2 08/02/2024 Encounters Encounter Location Date Provider Diagnosis Kody Morgan MD [address] [place], [place] [id number] 08/02/2024 Kody Morgan Essential hypertensi on I10 ; 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 ; Indolent non-Hodgkins lymphoma C85.80 ; Hypercholesteremia E78.00 and S/P TAVR (transcatheter aortic valve replacement) Z95.2 Assessments Encounter Date Diagnosis (ICD Code) Assessment Notes Treatment Notes Treatment Clinical Notes Section Notes 08/02/2024 Essential hypertensi on (ICD-10 - I10) doing well, will cntinue current regiment 08/02/2024 Prostatism (ICD-10 - N40.0) taking meds. seen by urology and had a reisdual of 200 08/02/2024 Indolent non-Hodgkin s lymphoma (ICD-10 - C85.80) starting to get treatment 08/02/2024 Hypercholesteremia (ICD-10 - E78.00) is followed at [facility] when he get infusions, will continue current regiment and will continue to monitor 08/02/2024 S/P TAVR (transcatheter aortic valve replacement) (ICD-10 - Z95.2) is followed in [place] Plan Of Treatment Medication Medication Name Sig Start Date Stop Date Notes Atorvastatin Calcium 20 MG 1 tablet Orally Once a day Flomax 0.4 MG 1 capsule Orally Once a day Warfarin Sodium 5 MG 1 tablet Orally Once a day Avodart 0.5 MG 1 capsule Orally Once a day Atenolol 25 MG 1 tablet Orally Once a day Irbesartan 75 MG 2 tablets Orally Once a day Treatment Notes Assessment Notes Essential hypertension doing well, will cntinue current regiment Prostatism taking meds. seen by urology and had a reisdual of 200 Indolent non-Hodgkins lymphoma starting to get treatment Hypercholesteremia is followed at [facility] when he get infusions, will continue current regiment and will continue to monitor S/P TAVR (transcatheter aort ic valve replacement) is followed in [facility] Appt Details Follow Up: 3 Months, Reason: Provider Name:Kody Jama ier, 11/08/2024 11:15:00 AM, [address], [address], [place], [place], [id number], Progress Notes * Joseph TALAVERADOB:[birth year] (73 yo M)Acc No.[id number]:08/02/2024 Progress Notes Patient:?Joseph Talavera Provider:?Kody Morgan MD :1950???Age:73 Y???Sex:Male Yuan e:08/02/2024 Address:[address] [place], [place] [id number] Subjective: * Chief Complaints: * ???New patient/ est care * HPI: ???Symptom(s):? patient is a 73 yo male , new patient here to establish care. had reteximab for non hodgkins lymphoma. * ROS:?General/Constitutional:?Patient denies?chills , fatigue , fever , headache.?ENT:?Patient denies?decreased sense of smell , any loss of taste , sore throat.?Respiratory:?Patient denies?shortness of breath with exertion.?Cardiovascular:?Patient denies?chest pain with exertion , chest pain at rest.?Gastrointestinal:?Patient complaining of?has some constipation has lost some weight from the lymphoma.?Musculoskeletal:?Patient denies?muscle aches.?Peripheral Vascular:?Patient denies?red and blue toes.? * Medical History:? * Surgical History:? * Hospitalization/Major Diagno stic Procedure:? * Family History:?Father: 96 y rs.?Mother: 74 yrs.?1 brother(s) . .? Father sepsis at 96 Mother 1 son 24 skiing accident. * Social History:?Tobacco Use:?Tobacco Use/Smoking?Patient is a?nonsmoker,?Additional Findings: Tobacco Non-User?Current non-smoker, currently using no form of tobacco.?Drugs/Alcohol:?Alcohol Screen?Did you have a drink containing alcohol in the past year??No,?Points?0,?Interpretation?Negative.?Miscellaneous:?no Caffeine. Exercise: yes, gym cardio. Home smoke detector use: yes. Marital status: . Occupation: weeks/months/years, retired. no Travel outside of the [place]. * Medications:?TakingTadalafil 5 MG Tablet 1 tablet as needed Orally Once a dayVitamin D 25 MCG (1000 UT) Tablet 1 tablet Orally Once a dayWarfarin Sodium 5 MG Tablet 1 tablet Orally Once a dayKlonoPIN 1 MG Tablet 1 tablet Orally Once a dayFlomax 0.4 MG Capsule 1 capsule Orally Once a dayAvodart 0.5 MG Capsule 1 capsule Orally Once a dayAtorvastatin Calcium 20 MG Tablet 1 tablet Orally Once a dayIrbesartan 75 MG Tablet 2 tablets Orally Once a dayAspirin 81 81 MG Tablet Delayed Release 1 tablet Orally Once a dayAtenolol 25 MG Tablet 1 tablet Orally Once a dayMedication List reviewed and reconciled with the patientTaking Tadalafil 5 MG Tablet 1 tablet as needed Orally Once a dayTaking Vitamin D 25 MCG (1000 UT) Tablet 1 tablet Orally Once a dayTaking Warfarin Sodium 5 MG Tablet 1 tablet Orally Once a dayTaking KlonoPIN 1 MG Tablet 1 tablet Orally Once a dayTaking Flomax 0.4 MG Capsule 1 capsule Orally Once a dayTaking Avodart 0.5 MG Capsule 1 capsule Orally Once a dayTaking Atorvastatin Calcium 20 MG Tablet 1 tablet Orally Once a dayTaking Irbesartan 75 MG Tablet 2 tablets Orally Once a dayTaking Aspirin 81 81 MG Tablet Delayed Release 1 tablet Orally Once a dayTaking Atenolol 25 MG Tablet 1 tablet Orally Once a dayMedication List reviewed and reconciled with the patient * Allergies:?N.K.D.A.yes[Aller gies Verified] Objective: * Vitals:?Ht:68, Wt:163, BMI:2 4.78, BP:114/52. * Examination: ???General Examination: ?GENERAL APPEARANCE:?alert, well hydrated, in no distress.?HEAD:?normocephalic.?SKIN:?good turgor.?HEART:?no murmurs, rubs, gallops , regular rate and rhythm.?LUNGS:?no wheezes, rales, rhonchi , good air movement , clear to auscultation bilaterally.?ABDOMEN:?soft, nontender, nondistended no masses. a small bulge in the rt inguinal area.? Assessment: * Assessment: 1.?Essential hypertension - I10 (Primary)?2.?Prostatism - N40.0?3.?Indolent non-Hodgkins lymphoma - C85.80?4.?Hypercholesteremia - E78.00?5.?S/P TAVR (transcatheter aortic valve replacement) - Z95.2? Plan: * Treatment: 2.?Prostatism? Continue Flomax Capsule, 0.4 MG, 1 capsule, Orally, Once a day;?Continue Avodart Capsule, 0.5 MG, 1 capsule, Orally, Once a day.?? Notes: taking meds. seen by urology and had a reisdual of 200?? 3.?Indolent non-Hodgkins lym phoma? Notes: starting to get treatment?? 4.?Hypercholesteremia? Continue Atorvastatin Calcium Tablet, 20 MG, 1 tablet, Orally, Once a day.?? Notes: is followed at [facility] when he get infusions, will continue current regiment and will continue to monitor?? 5.?S/P TAVR (transcatheter a ortic valve replacement)? Continue Warfarin Sodium Tablet, 5 MG, 1 tablet, Orally, Once a day.?? Notes: is followed in [place]?? * Procedure Codes:? * Follow Up:?3 Months * * Sign off status: Completed true * Provider:?Kody Morgan MD Date:?10/03/2023 Generated for Tacos clemons/Brandi/Sinitting on:?09/28/2024 09:24 AM EST History and Physical Notes * HPI (History of Present Illness) Category Sub-Category Detail Notes Category Not es Symptom(s) patient is a 73 yo male , new patient here to establish care. had reteximab for non hodgkins lymphoma. Examination Category Sub-Category Detail Notes Category Not es General Examination GENERAL APPEARANCE: alert, w ell hydrated, in no distress HEAD: normocephalic HEART: no murmurs, rubs, ga llops , regular rate and rhythm LUNGS: no wheezes, rales, r honchi , good air movement , clear to auscultation bilaterally ABDOMEN: soft, nontender, non distended no masses. a small bulge in the rt inguinal area SKIN: good turgor
--- OUTSIDE RECORDS SUMMARY | 2024-09-28 09:25 | XMS_ITS | Patient Health Record ---
Author Organization Kody Morgan MD Address [address] [place], [place] [id number] Care Team Providers Care Retail Sales Lead Name Role Phone Kody Morgan Primary Care Provider Allergies No Known Allergies Reason For Referral No Information Medications Medication SIG (Take, Route, Frequency, Duration) Notes Start Date End Date Status Warfarin Sodium 5 MG 1 tablet Orally Onc e a day Active Avodart 0.5 MG 1 capsule Orally Onc e a day Active Atenolol 25 MG 1 tablet Orally Once a day Active Irbesartan 75 MG 2 tablets Orally Onc e a day Active Atorvastatin Calcium 20 MG 1 tablet Oral [...] Once a day for 30 day(s) Active Aspirin 81 81 MG 1 tablet [...] Problem Status W/U Status Risk Notes Problem 68953057 Prostatism (N40.0) Active confirmed Problem 35946094 Essential hypertension (I10) Active confirmed Problem 77895918 Hypercholesterem ia (E78.00) Active confirmed Problem 6873007690799 S/P TAVR (transcatheter aortic valve replacement) (Z95.2) Active confirmed Problem 159385556 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 Vital Signs Blood pressure diastolic 52 mm Hg 08/02/2024 Height 68 in 08/02/2024 Blood pressure systolic 114 mm Hg 08/02/2024 Weight 163 lbs 08/02/2024 BMI 24.78 kg/m2 08/02/2024 Encounters Encounter Location Date Provider Diagnosis Kody Morgan MD [address] [place] [address] Drive [address] [place], [place] [id number] 08/02/2024 Kody Morgan Essential hypertensi on I10 ; 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 ; Indolent non-Hodgkins lymphoma C85.80 ; Hypercholesteremia E78.00 and S/P TAVR (transcatheter aortic valve replacement) Z95.2 Kody Morgan MD [address] [place] [address] [place] [phone] 08/13/2024 Kody Morgan Assessments Encounter Date Diagnosis (ICD Code) Assessment [...] Hypercholesteremia (ICD-10 - E78.00) is followed at [facility] when he get infusions, will continue current regiment and will continue to monitor 08/02/2024 S/P TAVR (transcatheter aortic valve replacement) (ICD-10 - Z95.2) is followed in [place] Plan Of Treatment Next Appt Details Provider Name:Kody Jama ielogan, 11/08/2024 11:15:00 AM, [address] [place] [address], Suite [facility], [place], [place], [id number], Insurance Providers Payer Name Payer Address Payer Phone Subscriber Number Group Number Insured Name Patient Relationship to Insured Coverage Start Date Coverage End Date [facility] [address] [place] [phone] [id number] Joseph Talavera Self - patient is the insured Medical (General) History Medical History History ICD Code could not have colonoscopy due to valve and had FIT 2022 that was negative
--- OUTSIDE RECORDS SUMMARY | 2024-09-28 09:25 | XMS_ITS | Encounter Summary ---
Author Organization [facility] Address [address] [place] [address] Care Team Providers Care Section Supervisor Name Role Phone Renny Lieberman MD Unavailable [phone] Joseph Talavera MD Primary Care Provider [phone] Renny Lieberman MD Primary Care Provider [phone] Pcp, No Primary Care Provider Unavailabl e Encounter Details Date Type Department Care Team (Late Contact Info) Description 01/04/2022 Scanned Document [facility] Heart & Vascular [place] [address] [facility], [address] [place] [address] Renny Lieberman MD [address] [place] [address] Social History Tobacco Use Types Packs/Day Years Used Date Smoking Tobacco: Never Smokeless Tobacco: Never Sex and Gender Information Value Date Recorded Sex Assigned at Choose not to disclose 06/2024 8:09 PM EST Gender Identity Not on file Sexual Orientation Not on file COVID-19 Exposure Response Date Recorded In the last 10 days, have yo u been in contact with someone who was confirmed or suspected to have Coronavirus/COVID-19? No / Unsure 12/25/2021 11:15 AM EDT documented as of this encounter Plan of Treatment Upcoming Encounters Date Type Department Care Team (Late st Contact Info) Description 03/11/2025 11:[address] [facility] Department of Dermatology [address] [place] [address] Karolina Price PA-C [address] [place] [address] documented as of this encounter Visit Diagnoses Not on filedocumented in this encounter Care Teams Section Supervisor Relationship Specialty Start Date End Date Joseph Talavera [facility] [address] [facility] [place] [address] PCP - General Internal Medicine 12/25/20 04/17/23 Renny Lieberman MD [address] [place] [address] PCP - General Cardiovascular Disease 04/18/23 01/06/24 Pcp, No PCP - General General Medicine 01/07/24 Renny Lieberman MD [address] [facility] [address] [place] [address] Primary Financial Internship Cardiovascular Disease 12/13/20 documented as of this encounter
--- OUTSIDE RECORDS SUMMARY | 2024-09-28 09:25 | XMS_ITS | Encounter Summary ---
Author Organization [facility] Address [address] [place] [address] Care Team Providers Care Strip Cleaner Name Role Phone Renny Lieberman MD Unavailable [phone] Joseph Talavera MD Primary Care Provider [phone] Renny Lieberman MD Primary Care Provider [phone] Pcp, No Primary Care Provider Unavailabl e Encounter Details Date Type Department Care Team (Late Contact Info) Description 02/04/[address] [facility] Heart & Vascular [place] [address] [facility], [address] [place] [address] Renny Lieberman MD [address] [place] [address] Social History Tobacco Use Types Packs/Day [...] suspected to have Coronavirus/COVID-19? No / Unsure 01/08/2022 10:49 AM EDT documented as of this encounter Plan of Treatment Upcoming Encounters Date Type Department Care Team (Late Contact Info) Description 03/11/2025 11:30 AM EDT Appointment [facility] Department of Dermatology [address] [place] [address] Karolina Price PA-C [address] [place] [address] documented as of this encounter Visit Diagnoses Not on filedocumented in this encounter Care Teams Strip Cleaner Relationship Specialty Start Date End Date Joseph Talavera MD [address] [place] [address] PCP - General Internal Medicine 12/25/20 04/17/23 Renny Lieberman MD [address] [place] [address] PCP - General Cardiovascular Disease 04/18/23 01/06/24 Pcp, No PCP - General General Medicine 01/07/24 Renny Lieberman MD [address] [facility] 8 [place] [address] Primary Building Construction Professor Cardiovascular Disease 12/13/20 documented as of this encounter
--- OUTSIDE RECORDS SUMMARY | 2024-09-28 09:25 | XMS_ITS | Clinical Summary ---
Author Organization [facility] Address [address] [place] [address] Care Team Providers Care Money Room Teller Name Role Phone Renny Lieberman MD Unavailable [phone] Pcp, No Primary Care Provider Unavailabl e Allergies No known active allergies Medications Medication Sig Dispensed Refills Start Date End Date Status atenolol (TENORMIN) 25 MG tablet Take 1 tablet (25 mg total) by mouth. Takes daily and an extra tablet daily as needed 09/22/2020 Active aspirin enteric coated (ECOTRIN LOW STRENGTH) 81 MG EC tablet Take 1 tablet (81 mg total) by mouth daily. Active dutasteride (AVODART) 0.5 MG capsule Take 1 capsule (0.5 mg total) by mouth daily. Active clonazePAM (KlonoPIN) 0.5 MG tablet Take 1 tablet (0.5 mg total) by mouth as needed. Uses for palpitations Active amoxicillin (AMOXIL) 500 MG capsule Prior to Dental Procedures 01/03/2022 Active cholecalciferol (CHOLECALCIFEROL) 25 MCG (1000 UT) tablet Take 1 tablet (1,000 Units total) by mouth daily. Active atorvastatin (LIPITOR) 20 MG tablet 02/10/2023 Active mvkaqi-lmcbgjdxm-vk gnesium sulfates (Suprep Bowel Prep Kit) 17.5-3.13-1.6 GM/177ML Solution solutionIndications :Change in bowel habit Take bowel preparation as prescribed/advised 2 each 04/18/2023 Active bethanechol (URECHOLINE) 25 MG tablet Take 1 tablet (25 mg total) by mouth 3 (three) times a day. 12/12/2023 Active sulfamethoxazole-tr imethoprim (BACTRIM DS,SEPTRA DS) 800-160 MG per tablet Take 1 tablet by mouth 2 (two) times a day. 12/12/2023 Active tadalafil (CIALIS) 5 mg tablet Take 1 tablet (5 mg total) by mouth every morning. 12/05/2023 Active tamsulosin (FLOMAX) 0.4 MG capsule Take 1 capsule (0.4 mg total) by mouth nightly. 12/23/2023 Active Jantoven 5 MG tablet 10/04/2023 Active irbesartan (AVAPRO) 150 MG tabletIndications:E ssential hypertension Take 1 tablet (150 mg total) by mouth daily. 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 S/p TAVR January 20 [facility] Diastolic dysfunction 12/13/2020 Overview (12/13/2020): Grade 2 on echo 2014 Other hyperlipidemia 12/13/2020 Social History Tobacco Use Types Packs/Day Years Used Date Smoking Tobacco: Never Smokeless Tobacco: Never Tobacco Cessation:Counseling Given: Not Answered Alcohol Use Standard Drinks/Week Comments Not Currently 0 (1 standard drink = 0.6 oz pur e alcohol) Sex and Gender Information Value Date Recorded Sex Assigned at Choose not to disclose 06/2024 8:09 PM EST Gender Identity Not on file Sexual Orientation Not on file Last Filed Vital Signs Vital Sign Reading Time Taken Comments Blood Pressure 114/60 01/06/2024 10:15 AM EDT Pulse 76 01/06/2024 10:15 AM EDT Temperature - - Respiratory Rate - - Oxygen Saturation 97% 01/06/2024 10:15 AM EDT Inhaled Oxygen Concentration - - Weight 78.9 kg (174 lb) 01/06/2024 10:15 AM EDT Height 171.5 cm (5' 7.5 ) 01/06/2024 10:15 AM ED T Body Mass Index 26.85 01/06/2024 10:15 AM EDT Plan of Treatment Upcoming Encounters Date Type Department Care Team (Elina st Contact Info) Description 03/11/2025 11:30 AM EDT Appointment [facility] Department of Dermatology [place] [address] [place] [address] Karolina Price PA-C [address] [place] [address] Health Maintenance Due Date Last Done Comments Hepatitis C Virus Screening 1950 DTaP/Tdap/Td Vaccines (1 - Tdap) 11/16/1967 Pneumococcal Vaccines 50+ (1 of 2 - PCV) 11/16/1967 Colonoscopy 1993 Zoster (Shingles) Vaccine (1 of 2) 1998 DXA Bone Density (Females,Ag es 65 and older) 2013 RSV Vaccine 60 years and old er and Patients (1 - 1-dose 75+ series) 11/16/2023 Influenza Vaccine 04/01/2024 COVID-19 Vaccine ( - 2023-2 5 season) 2024 Hepatitis B Vaccines Aged Out No long er eligible based on patient's age to complete this topic Care Teams Money Room Teller Relationship Specialty Start Date End Date Pcp, No PCP - General General Medicine 01/07/24 Renny Lieberman MD [address] [place] [address] Primary Putty Tinter Maker Cardiovascular Disease 12/13/20
--- OUTSIDE RECORDS SUMMARY | 2024-09-28 09:25 | XMS_ITS | Encounter Summary ---
Author Organization [facility] Address [address] [place] [address] Care Team Providers Care Electrical Plumbing Supervisor Name Role Phone Renny Lieberman MD Unavailable [phone] Renny Lieberman MD Primary Care Provider [phone] Pcp, No Primary Care Provider Unavailabl e Encounter Details Date Type Department Care Team (Late Contact Info) Description 12/31/2023 Scanned Document [facility] Heart & Vascular [facility] [address] [place] [address] Renny Lieberman MD [address] [employer] [employer] [address] [place] [address] Social History Tobacco Use Types Packs/Day Years Used Date Smoking Tobacco: Never Smokeless Tobacco: Never Alcohol Use Standard Drinks/Week Comments Not Currently [...] EDT Appointment [facility] Department of Dermatology [place] [address] [place] [phone] Karolina Price PA-C [address] [place], [place] [phone] documented as of this encounter Visit Diagnoses Not on filedocumented in this encounter Care Teams Electrical Plumbing Supervisor Relationship Specialty Start Date End Date Renny Lieberman MD [address] [place] [id number] PCP - General Cardiovascular Disease 04/18/23 01/06/24 Pcp, No PCP - General General Medicine 01/07/24 Renny Lieberman MD [address] [id number] Primary Information Technology Internship Cardiovascular Disease 12/13/20 documented as of this encounter
--- OUTSIDE RECORDS SUMMARY | 2024-09-28 09:25 | XMS_ITS | Encounter Summary ---
Author Organization [facility] Address [address] [place] [address] Care Team Providers Care Gas Meter Repairer Name Role Phone Renny Lieberman MD Unavailable [phone] Pcp, No Primary Care Provider Unavailabl e Encounter Details Date Type Department Care Team (Late st Contact Info) Description 01/30/2024 Scanned Document [facility] Heart & Vascular [facility] [address] [facility], [address] [place] [address] Renny Lieberman MD [address] [facility] [address] [place], [place] [id number] Social History Tobacco Use Types Packs/Day Years [...] EDT Appointment [facility] Department of Dermatology [place] [address] [facility] [address] [place] [address] Karolina Price PA-C [address] [place], [place] [address] documented as of this encounter Visit Diagnoses Not on filedocumented in this encounter Care Teams Gas Meter Repairer Relationship Specialty Start Date End Date Pcp, No PCP - General General Medicine 01/07/24 Renny Lieberman MD [address] [place] [address] Primary Meatcutter Cardiovascular Disease 12/13/20 documented as of this encounter
--- OUTSIDE RECORDS SUMMARY | 2024-09-28 09:25 | XMS_ITS | Encounter Summary ---
Author Organization [facility] Address [address] [place] [address] Care Team Providers Care Hand Mixer Name Role Phone Renny Lieberman MD Unavailable [phone] Joseph Talavera MD Primary Care Provider [phone] Renny Lieberman MD Primary Care Provider [phone] Pcp, No Primary Care Provider Unavailabl e Encounter Details Date Type Department Care Team (Late st Contact Info) Description 09/17/2022 Scanned Document [facility] Heart & Vascular [facility] [address] [place] [phone] Renny Lieberman MD [address] [place] [address] Social History Tobacco Use Types Packs/Day Years [...] EDT Appointment [facility] Department of Dermatology [place] [address] [facility] [place] [phone] Karolina Price PA-C [address] [facility] [address] [place], [place] [address] documented as of this encounter Visit Diagnoses Not on filedocumented in this encounter Care Teams Hand Mixer Relationship Specialty Start Date End Date Joseph Talavera MD [address] [place] [address] PCP - General Internal Medicine 12/25/20 04/17/23 Renny Lieberman MD [address] [place] [address] PCP - General Cardiovascular Disease 04/18/23 01/06/24 Pcp, No PCP - General General Medicine 01/07/24 Renny Lieberman MD [address] [place] [address] Primary Foil Cutter Cardiovascular Disease 12/13/20 documented as of this encounter
--- OUTSIDE RECORDS SUMMARY | 2024-09-28 09:25 | XMS_ITS | Clinical Summary ---
Author Organization [facility] Address [address] [place] [address] Care Team Providers Care Research Soil Scientist Name Role Phone Pcp, No MD Primary Care Provider Unavailabl e Allergies Active Allergy Reactions Criticality Noted Date Comments Pollen Extracts 02/15/2021 Medications atenoloL (TENORMIN) 25 mg tablet Take 25 mg by mouth in the morning. 09/22/2020 Active aspirin 81 mg chewable tablet Take 81 mg by mouth in the morning. Active dutasteride (AVODART ORAL) Take 0.5 mg by mouth in the morning. 02/23/2021 Active IRBESARTAN ORAL Take 75 mg by mouth in the morning. 02/23/2021 Active clonazePAM (KlonoPIN) 0.5 mg tablet Take 0.5 mg by mouth daily as needed. 02/23/2021 Active omega 7-mzi-ock-fish oil (Fish OiL) 1,000 mg (120 mg-180 mg) capsule Take 1,000 mg by mouth in the morning. Active atorvastatin (LIPITOR) 20 mg tablet Take 20 mg by mouth in the morning. Active cholecalciferol, vitamin D3, (Vitamin D3) 25 mcg (1,000 unit) capsule Take 1,000 Units by mouth in the morning. Active polyethylene glycol (GLYCOLAX) 17 gram packet Take 17 g by mouth in the morning. NEEDED. Active Social History Tobacco Use Types Packs/Day Years Used Date Smoking Tobacco: Never Assessed Sex and Gender Information Value Date Recorded Sex Assigned at Not on file Legal Sex Male 10:16 AM EST Gender Identity Not on file Sexual Orientation Not on file Last Filed Vital Signs Vital Sign Reading Time Taken Comments Blood Pressure 126/61 09/19/2023 10:44 AM EST Pulse 67 09/19/2023 10:44 AM EST Temperature 36.4 ??C (97.6 ??F) 09/19/2023 10:[address] Respiratory Rate 24 09/19/2023 10:44 AM EST Oxygen Saturation 97% 09/19/2023 10:44 AM EST Inhaled Oxygen Concentration - - Weight 83.1 kg (183 lb 4.8 oz) 09/19/2023 10:44 AM EST Height - - Body Mass Index - - Plan of Treatment Upcoming Encounters Date Type Department Care Team (Late st Contact Info) Description 10/20/2024 10:30 AM EST Office Visit [facility] Department of Colon Cancer Prevention [address] [place] [address] Shekhar Ledesma MD [address] [address] Health Maintenance Due Date Last Done Comments CT Colonography 1948 Colonoscopy 1948 FIT-DNA (Cologuard) 1948 FOBT 1948 Flex Sigmoidoscopy - 5y 1948 HIV Screening 1948 COVID-19 Vaccine (#1) 1953 Pneumococcal Vaccine, 65+ Ye ars (1 of 2 - PCV) 1954 DTaP,Tdap,and Td Vaccines (1 - Tdap) 1966 Hepatitis C Screening 1966 Zoster Vaccines (1 of 2) 11/16/1967 Influenza Vaccine (#1) 2024 Colorectal Cancer Screening 09/25/2024 FIT 09/25/2024 09/25/2023 HPV Vaccines Aged Out No longer eligi ble based on patient's age to complete this topic Hepatitis A Vaccines Aged Out No long er eligible based on patient's age to complete this topic Meningococcal Vaccine Aged Out No columba bob eligible based on patient's age to complete this topic Procedures Procedure Name Priority Date/Time Associated Diagnosis Comments FECAL IMMUNOCHEMICAL HB Routine 09/25/19 11:31 AM EST Screen for colon cancer from Last 3 Months or Most Recently Relevant to Health Maintenance Results * Fecal immunochemical Hb (09/25/2023 11:31 AM EST) Fecal Immunochemical Hemoglobin Negative Negative 09/25/2023 2:11 PM EST [facility] Comment:This is a screening test for colorectal cancer or gastrointestinal bleed. This test has 97% specificity for detection of lower gastrointestinal bleeding in colorectal cancer. This test will not detect upper gastrointestinal bleeding. Stool Anal structure / Unknown Non-blood Collection / Unknown 09/25/2023 11:31 AM EST 09/25/2023 11:31 AM EST us Shekhar Ledesma MD LAB BODY FLUIDS AND STOOLS SHRUTI ERAZO Final Result [facility] [address] [place] [address], from Last 3 Months or Most Recently Relevant to Health Maintenance Insurance [employer] Care Teams Research Soil Scientist Relationship Specialty Start Date End Date Pcp, MD Heather [address] [place] [address] PCP - General Internal Medicine 09/15/23
--- OUTSIDE RECORDS SUMMARY | 2024-09-28 09:25 | XMS_ITS | Encounter Summary ---
Author Organization [facility] Address [address] [place] [address] Care Team Providers Care Smelter Liner Name Role Phone Renny Lieberman MD Unavailable [phone] Joseph Talavera MD Primary Care Provider [phone] Renny Lieberman MD Primary Care Provider [phone] Pcp, No Primary Care Provider Unavailabl e Encounter Details Date Type Department Care Team (Late st Contact Info) Description 02/27/2021 Scanned Document [facility] Cancer [place] [facility] at [address] [phone] Estiven Larson MD [address] [place] [address] Social History Tobacco Use Types Packs/Day Years [...] EDT Appointment [facility] Department of Dermatology [place] [address] [facility] [place] [phone] Karolina Price PA-C [address] [facility] [address] [place], [place] [address] documented as of this encounter Visit Diagnoses Not on filedocumented in this encounter Care Teams Smelter Liner Relationship Specialty Start Date End Date Joseph Talavera MD [address] [place] [address] PCP - General Internal Medicine 12/25/20 04/17/23 Renny Lieberman MD [address] [place] [address] PCP - General Cardiovascular Disease 04/18/23 01/06/24 Pcp, No PCP - General General Medicine 01/07/24 Renny Lieberman MD [address] [place] [address] Primary Chief Librarian Music Department Cardiovascular Disease 12/13/20 documented as of this encounter
== END 2024-09-28 09:49 | disposition home or self-care (01) ==
LOC: HO.ACS 09:01
PROVIDERS: PCP Internal Medicine Hematology; Visit Provider Internal Medicine
DX: Z79.01 Long term (current) use of anticoagulants (principal)

== ENCOUNTER 2024-11-08 12:59 | Outpatient (REF) | payer OTHER, SELFPAY ==
[2024-11-08 13:03] LABS: MANUAL DIFF FLAG NO
[2024-11-08 13:08] LABS: Appearance Urine Clear; Color Urine Yellow; Glucose Urine UA Negative (Negative); Leukocyte Esterase Urine Negative (Negative); Nitrite Urine Negative (Negative); Specific Gravity - Urine 1.015 (1.005-1.025); Urine Blood Negative (Negative); Urine Ketones Negative (Negative); Urine Protein Negative (Neg-Trace)
[2024-11-08 13:11] LABS: Basophils Percent Auto 0.5 % (0-2); Eosinophils Absolute Auto 0.2 X10*3/uL (0.0-0.4); Eosinophils Percent Auto 2.7 % (0-4); Hematocrit 43.8 % (42.0-52.0); Hemoglobin 15.1 g/dl (14.0-18.0); Imm Gran Abs Auto 0.03 X10*3/uL (0.00-0.03); Imm Gran Pct Auto 0.5 % (0.0-0.4); Mean Corpuscular HGB Conc 34.5 g/dl (31.0-36.0); Mean Corpuscular Hemoglobin 31.6 pg (27.0-33.0); Mean Corpuscular Volume 91.6 fL (80.0-98.0); Mean Platelet Volume 10.7 fL (9.4-12.4); Monocytes Absolute Auto 0.9 X10*3/uL (0.1-1.2); Neutrophils Absolute Auto 3.9 x10*3/uL (2.0-8.3); Neutrophils Percent Auto 64.3 % (45-73); Platelet Count 171 X10*3/uL (160-400); Red Blood Count 4.78 X10*6/uL (4.60-5.80); Red Cell Distribution Width 12.5 % (11.0-16.0)
[2024-11-08 13:31] LABS: Bacteria Urine None Seen (None Seen); Hyaline Casts Urine 0-2 /LPF (0-2); RBC Urine 0-2 /HPF (0-2); Squamous Epithelial Cell Urine 0-2 /HPF (0-2); WBC Urine 0-5 /HPF (0-5)
[2024-11-08 13:32] LABS: Alanine Aminotransferase 21 U/L (0-40); Alkaline Phosphatase 76 U/L (39-117); Amylase 99 U/L (28-100); Anion Gap 10 (12-20); Aspartate Amino Transferase 25 U/L (5-37); Bilirubin Total 0.6 mg/dL (0.0-1.0); Blood Urea Nitrogen 22 mg/dL (9-16); Calcium 9.3 mg/dL (8.4-10.2); Carbon Dioxide 30 mmol/L (22-29); Chloride 104 mmol/L (96-108); Estimated Glomerular Filt Rate > 60; Glucose Fasting 86 mg/dL (60-99); Lipase 23 U/L (8-78); Potassium 4.8 mmol/L (3.3-5.1); Sodium 139 mmol/L (135-145); Total Protein 7.2 g/dL (6.5-8.0)
--- OUTSIDE RECORDS SUMMARY | 2024-11-08 14:35 | XMS_ITS | Encounter Summary ---
Author Organization [facility] Address [address] [place] [address] Care Team Providers Care X Ray Equipment Tester Name Role Phone Renny Lieberman MD Unavailable [phone] Joseph Talavera MD Primary Care Provider [phone] Renny Lieberman MD Primary Care Provider [phone] Pcp, No Primary Care Provider Unavailabl e Encounter Details Date Type Department Care Team (Late Contact Info) Description 02/16/2021 Scanned Document [facility] Heart & Vascular [place] [address] [facility], [address] [place] [address] Renny Lieberman MD [address] [facility] [address] [place], [place] [phone] Social History Tobacco Use Types Packs/Day Years Used Date Smoking Tobacco: Never Smokeless Tobacco: Never Sex and Gender Information Value Date Recorded Sex Assigned at Choose not to disclose 06/2024 8:09 PM EST Gender Identity Not on file Sexual Orientation Not on file documented as of this encounter Plan of Treatment Upcoming Encounters Date Type Department Care Team (Late Contact Info) Description 03/18/2025 11:30 AM EDT Appointment [facility] Department of Dermatology [place] [address] [facility] [address] [place] [phone] Karolina Price PA-C [address] [facility] [address] [place], [place] [phone] documented as of this encounter Visit Diagnoses Not on filedocumented in this encounter Care Teams X Ray Equipment Tester Relationship Specialty Start Date End Date Joseph Talavera MD [address] [place] [address] PCP - General Internal Medicine 12/25/20 04/17/23 Renny Lieberman MD [address] [place] [address] PCP - General Cardiovascular Disease 04/18/23 01/06/24 Pcp, No PCP - General General Medicine 01/07/24 Renny Lieberman MD [address] [place] [address] Primary Cloth Tester Quality Cardiovascular Disease 12/13/20 documented as of this encounter
--- OUTSIDE RECORDS SUMMARY | 2024-11-08 14:35 | XMS_ITS | Encounter Summary ---
Author Organization [facility] Address [address] [place] [address] Care Team Providers Care Apparel Manufacture Instructor Name Role Phone Renny Lieberman MD Unavailable [phone] Joseph Talavera MD Primary Care Provider [phone] Renny Lieberman MD Primary Care Provider [phone] Pcp, No Primary Care Provider Unavailabl e Encounter Details Date Type Department Care Team (Late st Contact Info) Description 09/17/2022 Scanned Document [facility] Heart & Vascular [facility] [address] [place] [phone] Renny Lieberman MD [address] [place] [address] Social History Tobacco Use Types Packs/Day Years Used Date Smoking Tobacco: Never Smokeless Tobacco: Never Sex and Gender Information Value Date Recorded Sex Assigned at Choose not to disclose 06/2024 8:09 PM EST Gender Identity Not on file Sexual Orientation Not on file documented as of this encounter Plan of Treatment Upcoming Encounters Date Type Department Care Team (Late st Contact Info) Description 03/18/2025 11:30 AM EDT Appointment [facility] Department of Dermatology [place] [address] [facility] [place] [phone] Karolina Price PA-C [address] [facility] [address] [place], [place] [address] documented as of this encounter Visit Diagnoses Not on filedocumented in this encounter Care Teams Apparel Manufacture Instructor Relationship Specialty Start Date End Date Joseph Talavera MD [address] [place] [address] PCP - General Internal Medicine 12/25/20 04/17/23 Renny Lieberman MD [address] [place] [address] PCP - General Cardiovascular Disease 04/18/23 01/06/24 Pcp, No PCP - General General Medicine 01/07/24 Renny Lieberman MD [address] [place] [address] Primary Mission Planner Cardiovascular Disease 12/13/20 documented as of this encounter
--- OUTSIDE RECORDS SUMMARY | 2024-11-08 14:35 | XMS_ITS | Encounter Summary ---
Author Organization [facility] Address [address] [place] [address] Care Team Providers Care Commercial Center Manager Name Role Phone Renny Lieberman MD Unavailable [phone] Joseph Talavera MD Primary Care Provider [phone] Renny Lieberman MD Primary Care Provider [phone] Pcp, No Primary Care Provider Unavailabl e Encounter Details Date Type Department Care Team (Late st Contact Info) Description 02/27/2021 Scanned Document [facility] Cancer [place] [facility] at [address] [phone] Estiven Larson MD [address] [place] [address] Social History Tobacco Use Types Packs/Day Years [...] EDT Appointment [facility] Department of Dermatology [place] [address] [facility] [place] [phone] Karolina Price PA-C [address] [place], [place] [address] documented as of this encounter Visit Diagnoses Not on filedocumented in this encounter Care Teams Commercial Center Manager Relationship Specialty Start Date End Date Joseph Talavera MD [address] [place] [address] PCP - General Internal Medicine 12/25/20 04/17/23 Renny Lieberman MD [address] [place] [address] PCP - General Cardiovascular Disease 04/18/23 01/06/24 Pcp, No PCP - General General Medicine 01/07/24 Renny Lieberman MD [address] [place] [address] Primary Enrollment Consultant Cardiovascular Disease 12/13/20 documented as of this encounter
--- OUTSIDE RECORDS SUMMARY | 2024-11-08 14:35 | XMS_ITS | Encounter Summary ---
Author Organization [facility] Address [address] [place] [address] Care Team Providers Care Block Cleaner Name Role Phone Renny Lieberman MD Unavailable [phone] Pcp, No Primary Care Provider Unavailabl e Encounter Details Date Type Department Care Team (Late st Contact Info) Description 01/30/2024 Scanned Document [facility] Heart & Vascular [facility] [address] [facility], [address] [place] [address] Renny Lieberman MD 111 [facility] 8 [place], [place] [phone] Social History Tobacco Use Types Packs/Day Years [...] EDT Appointment [facility] Department of Dermatology [place] [address] [facility] [address] [place] [address] Karolina Price PA-C [address] [place], [place] [address] documented as of this encounter Visit Diagnoses Not on filedocumented in this encounter Care Teams Block Cleaner Relationship Specialty Start Date End Date Pcp, No PCP - General General Medicine 01/07/24 Renny Lieberman MD [address] [place] [address] Primary Contact Officer Cardiovascular Disease 12/13/20 documented as of this encounter
--- OUTSIDE RECORDS SUMMARY | 2024-11-08 14:35 | XMS_ITS | Patient Health Record ---
Author Organization Kody Morgan MD Address [address] [place], [place] [phone] Care Team Providers Care Carbon Sequestration Plant Engineer Name Role Phone Kody Morgan Primary Care Provider Allergies No Known Allergies Results Component Value Reference Range Notes Hold Gold (Not yet reviewed by provider) Interpretation: Performing Lab:[facility], [address] [place] [phone] Notes/Report: Hold Gold See Note Specimen held untested for 24 hours; Call to request Chemistry testing. Urinalysis and Microscopic ( Not yet reviewed by provider) Interpretation: Performing Lab:[facility], [address] [place] [phone] Notes/Report: Color Urine Yellow Appearance Urine Clear PH 6.0 5.0-9.0 Glucose Urine UA Negative Negative mg/dL Urine Blood Negative Negative Specific [place] - Urine 1.015 1.005-1.025 Urine Protein Negative Neg-Trace mg/dL Urine Ketones Negative Negative mg/dL Nitrite Urine Negative Negative Leukocyte Esterase Urine Negative Negative RBC Urine 0-2 0-2 /HPF WBC Urine 0-5 0-5 /HPF Squamous Epithelial Cell Urine 0-2 0-2 /HPF Bacteria Urine None Seen None Seen Hyaline Casts Urine 0-2 0-2 /LPF Complete Blood Count Auto Di ff Reviewed date:11/08/2024 02:27:02 PM Interpretation: Performing Lab:[facility], [address] [place] [phone] Notes/Report: White Blood Count 6.0 4.8-10.8 X10*3/uL Red Blood Count 4.78 4.60-5.80 X10*6/uL Hemoglobin 15.1 14.0-18.0 g/dl Hematocrit 43.8 42.0-52.0 % Mean Corpuscular Volume 91.6 80.0-98.0 fL Mean Corpuscular Hemoglobin 31.6 27.0-33.0 pg Mean Corpuscular HGB Conc 34.5 31.0-36.0 g/dl Red Cell Distribution Width 12.5 11.0-16.0 % Platelet Count 171 160-400 X10*3/uL Mean Platelet Volume 10.7 9.4-12.4 fL Neutrophils Percent Auto 64.3 45-73 % Imm Gran Pct Auto 0.5 0.0-0.4 % Lymphocytes Percent Auto 17.0 20-40 % Monocytes Percent Auto 15.0 2-11 % Eosinophils Percent Auto 2.7 0-4 % Basophils Percent Auto 0.5 0-2 % NRBC Pct Auto 0.0 0.0-0.2 /100WBC Neutrophils Absolute Auto 3.9 2.0-8.3 x10*3/u L Imm Gran Abs Auto 0.03 0.00-0.03 X10*3/uL Lymphocytes Absolute Auto 1.0 1.2-4.9 X10*3/u L Monocytes Absolute Auto 0.9 0.1-1.2 X10*3/uL Eosinophils Absolute Auto 0.2 0.0-0.4 X10*3/u L Basophils Absolute Auto 0.0 0.0-0.2 X10*3/uL NRBC Abs Auto 0.000 0.0-0.012 X10*3/uL Comprehensive [place]. Panel Fa st Reviewed date:11/08/2024 02:27:28 PM Interpretation: Performing Lab:[facility], [address] [place] [phone] Notes/Report: Sodium 139 135-145 mmol/L Potassium 4.8 3.3-5.1 mmol/L Chloride 104 96-108 mmol/L Carbon Dioxide 30 22-29 mmol/L Anion Gap 10 12-20 Blood Urea Nitrogen 22 9-16 mg/dL Creatinine 1.02 0.5-1.4 mg/dL Estimated Glomerular Filt Rate > 60 Chronic Kidney Disease: Estimated GFR < 60 mL/min/1.73m2 Severe Kidney Disease: Estimated GFR < 15 mL/min/1.73m2 Glucose Fasting 86 60-99 mg/dL Calcium 9.3 8.4-10.2 mg/dL Bilirubin Total 0.6 0.0-1.0 mg/dL Aspartate Amino Transferase 25 5-37 U/L Alanine Aminotransferase 21 0-40 U/L Total Protein 7.2 6.5-8.0 g/dL Albumin Level 4.0 3.5-5.0 g/dL Alkaline Phosphatase 76 39-117 U/L Amylase Reviewed date:11/08/2024 02:26:23 PM Interpretation: Performing Lab:[facility], [address] [place] [phone] Notes/Report: Amylase 99 28-100 U/L Lipase Reviewed date:11/08/2024 02:26:31 PM Interpretation: Performing Lab:[facility], [address] [place] [phone] Notes/Report: Lipase 23 8-78 U/L Reason For Referral No Information Medications Medication SIG (Take, Route, Frequency, Duration) Notes Start Date End Date Status Atenolol 25 MG 1 tablet Orally Once a day Active Atorvastatin Calcium 20 MG 1 tablet Orally Once a day Active Warfarin Sodium 5 MG 1 tablet Orally Onc e a day Active Avodart 0.5 MG 1 capsule Orally Onc e a day Active Irbesartan 75 MG 2 tablets Orally Onc e a day Active Vitamin D 25 MCG (1000 UT) 1 tablet Orally Once a day for 30 day(s) Active traZODone HCl 50 MG 1 tablet at bedtime as needed Orally Once a day for 30 days 11/08/2024 Active Flomax 0.4 MG 1 capsule Orally Onc e a day Not-Taking Aspirin 81 81 MG 1 tablet Orally Once a day for 30 day(s) Active KlonoPIN 1 MG 1 tablet Orally Once a day Active Social History Tobacco Use: Social History [...] Problem Status W/U Status Risk Notes Problem Neutropenia (859360892) Neutropenia (D70.9) Active confirmed Problem 07107990 Prostatism (N40.0) Active confirmed Problem Insomnia (860006392) Insomnia (G47.00) Active confirmed Problem 85608458 Essential hypertension (I10) Active confirmed Problem 81353404 Hypercholesterem ia (E78.00) Active confirmed Problem [id number] S/P TAVR (transcatheter aortic valve replacement) (Z95.2) Active confirmed Problem 714700962 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 Vital Signs Blood pressure diastolic 52 mm Hg 11/08/2024 rufus ght is down 5 pounds since 08-02-24 Height 68 in 11/08/2024 weight is down 5 pounds since 08-02-24 Blood pressure systolic 120 mm Hg 11/08/2024 weig ht is down 5 pounds since 08-02-24 Weight 158 lbs 11/08/2024 weight is down 5 pounds since 08-02-24 BMI 24.02 kg/m2 11/08/2024 weight is down 5 pounds since 08-02-24 Encounters Encounter Location Date Provider Diagnosis Kody Morgan MD [address] [place] [address] [address] [place] [id number] 08/02/2024 Kody Morgan Essential hypertensi on I10 ; 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 ; Indolent non-Hodgkins lymphoma C85.80 ; Hypercholesteremia E78.00 and S/P TAVR (transcatheter aortic valve replacement) Z95.2 [address] MD [address] [place] [id number] 11/08/2024 Kody Morgan Essential hypertensi on I10 ; Indolent non-Hodgkins lymphoma C85.80 ; S/P TAVR (transcatheter aortic valve replacement) Z95.2 ; Weight loss R63.4 ; Neutropenia D70.9 and Insomnia G47.00 Kody Morgan MD [address] [place] [address] Drive [address] [place] [id number] 11/08/2024 Kody Morgan MD [address] [place] [address] [address] [place] [id number] 08/13/2024 Kody Morgan Assessments Encounter Date Diagnosis (ICD Code) Assessment Notes Treatment Notes Treatment Clinical Notes Section Notes 08/02/2024 Essential hypertensi on (ICD-10 - I10) doing well, will cntinue current regiment 08/02/2024 Prostatism (ICD-10 - N40.0) taking meds. seen by urology and had a reisdual of 200 11/08/2024 Essential hypertensi on (ICD-10 - I10) doing well on meds. will continue current regiment 11/08/2024 Indolent non-Hodgkin s lymphoma (ICD-10 - C85.80) 08/02/2024 Indolent non-Hodgkin s lymphoma (ICD-10 - C85.80) starting to get treatment 11/08/2024 S/P TAVR (transcatheter aortic valve replacement) (ICD-10 - Z95.2) on meds, will continue current regiment 08/02/2024 Hypercholesteremia (ICD-10 - E78.00) is followed at [facility] when he get infusions, will continue current regiment and will continue to monitor 11/08/2024 Weight loss (ICD-10 - R63.4) is afraid to eat due to the constipation. 08/02/2024 S/P TAVR (transcatheter aortic valve replacement) (ICD-10 - Z95.2) is followed in [place] 11/08/2024 Neutropenia (ICD-10 - D70.9) will continue to monitor 11/08/2024 Insomnia (ICD-10 - G47.00) will continue current regiment Plan Of Treatment Pending Test Test Name Order Date Urinalysis and Microscopic 11/08/2024 Hold Gold 11/08/2024 Urine Culture 11/08/2024 Next Appt Details Provider Name:Kody mack, 12/14/2024 11:15:00 AM, [address] [place] [address], [address], [place], [place], [phone], Provider Name:Kody mack, 05/05/2025 07:15:00 AM, [address] [place] [address], [address], [place], [place], [phone], Provider Name:Kody mack, 05/12/2025 10:00:00 AM, [address], [address], [place], [phone], Provider Name:Kodyama mack, 11/04/2025 07:45:00 AM, [address] [facility], [address], [place], [place], [phone], Provider Name:Kody Colin Evita mack, 11/11/2025 11:00:00 AM, [address] [place] [address], Suite [facility], [place], [phone], Insurance Providers Payer Name Payer Address Payer Phone Subscriber Number Group Number Insured Name Patient Relationship to Insured Coverage Start Date Coverage End Date [employer] [address] [place] [phone] [id number] Joseph Talavera Self - patient is the insured Medical (General) History Medical History History ICD Code could not have colonoscopy due to valve and had FIT 2022 that was negative
--- OUTSIDE RECORDS SUMMARY | 2024-11-08 14:35 | XMS_ITS | Clinical Summary ---
Author Organization [facility] Address [address] [place] [address] Care Team Providers Care Contact Representative Name Role Phone Pcp, No MD Primary [...] mouth daily as needed. 02/23/2021 Active omega 2-alp-kor-fish oil (Fish OiL) 1,000 mg (120 mg-180 [...] Mass Index - - Plan of Treatment Health Maintenance Due Date Last Done Comments [...] Hemoglobin Negative Negative 09/25/2023 2:11 PM EST [facility] Comment:This is a screening test for colorectal cancer or gastrointestinal bleed. This test has 97% specificity for detection of lower gastrointestinal bleeding in colorectal cancer. This test will not detect upper gastrointestinal bleeding. Stool Anal structure / Unknown Non-blood Collection / Unknown 09/25/2023 11:31 AM EST 09/25/2023 11:31 AM EST Shekhar Ledesma MD LAB BODY FLUIDS AND STOOLS SHRUTI ERAZO Final Result [facility] [address] [id number], [place] [phone] from Last 3 Months or Most Recently Relevant to Health Maintenance Insurance [employer] [place] [id number] Care Teams Contact Representative Relationship Specialty Start Date End Date Heather Harrell MD [address] [place] [address] PCP - General Internal Medicine 09/15/23
--- OUTSIDE RECORDS SUMMARY | 2024-11-08 14:35 | XMS_ITS | Encounter Summary ---
Author Organization [facility] Address [address] [place] [address] Care Team Providers Care Construction Skills Teacher Name Role Phone Renny Lieberman MD Unavailable [phone] Renny Lieberman MD Primary Care Provider [phone] Pcp, No Primary Care Provider Unavailabl e Encounter Details Date Type Department Care Team (Late Contact Info) Description 12/31/2023 Scanned Document [facility] Heart & Vascular [facility] [address] [place] [address] Renny Lieberman MD [address] [place] [facility] [address] [place] [address] Social History Tobacco Use Types Packs/Day Years [...] EDT Appointment [facility] Department of Dermatology [place] [address] [place] [phone] Karolina Price PA-C [email or web address] [place], [place] [phone] documented as of this encounter Visit Diagnoses Not on filedocumented in this encounter Care Teams Construction Skills Teacher Relationship Specialty Start Date End Date Renny Lieberman MD [address] [id number] PCP - General Cardiovascular Disease 04/18/23 01/06/24 Pcp, No PCP - General General Medicine 01/07/24 Renny Lieberman MD [address] [phone] Primary Toll Mechanic Cardiovascular Disease 12/13/20 documented as of this encounter
--- OUTSIDE RECORDS SUMMARY | 2024-11-08 14:35 | XMS_ITS ---
Author Organization Kody Morgan MD Address [address] [place] [address] [place] [phone] Care Team Providers Care Fleet Manager Name Role Phone Kody Morgan Primary Care Provider REASON FOR VISIT ? 6mos appt and PE appt Encounters Encounter Location Date Provider Diagnosis Kody Morgan MD [address] [place] [address] [place] [phone] 11/08/2024 Kody Morgan Plan Of Treatment Next Appt Details Provider Name:Kody mack, 12/14/2024 11:15:00 AM, [address] [place] [address], [address], [phone], Provider Name:Kody mack, 05/05/2025 07:15:00 AM, [address] [place] [address], [address], [phone], Provider Name:Kody mack, 05/12/2025 10:00:00 AM, [address] [place] [address], [address], [phone], Provider Name:Kody mack, 11/04/2025 07:45:00 AM, [address] [place] [address], [address], [phone], Provider Name:Kdoy mack, 11/11/2025 11:00:00 AM, [address] [place] [address], [phone], Progress Notes * Jospeh TALAVERADOB:[birth year] (73 yo M)Acc No.[id number]:11/08/2024 Patient:?Joseph TALAVERA :1950???Age:73 Y???Sex:Male Address:[address] [place] [address] Simone [facility] [place], [address] * true * Date:? Generated for Tacos clemons/Brandi/eTransmitting on:?11/08/2024 02:35 PM EDT
--- OUTSIDE RECORDS SUMMARY | 2024-11-08 14:36 | XMS_ITS ---
Author Organization Kody Morgan MD Address [address] [place] [address] [place] [phone] Care Team Providers Care Contract Processor Name Role Phone Kody Morgan Primary Care Provider [phone] REASON FOR VISIT PET/CT Results - 08/12/24 Encounters Encounter Location Date Provider Diagnosis Kody Morgan MD [address] [place] [address] [place] [phone] 08/13/2024 Kody Morgan Plan Of Treatment Next Appt Details Provider Name:Kody mack, 12/14/2024 11:15:00 AM, [address] [place] [address], [address], [phone], Provider Name:Kody mack, 05/05/2025 07:15:00 AM, [address] [place] [address], [address], [phone], Provider Name:Kody mack, 05/12/2025 10:00:00 AM, [address] [place] [address], [address], [phone], Provider Name:Kody mack, 11/04/2025 07:45:00 AM, [address] [place] [address], [address], [phone], Provider Name:Kody mack, 11/11/2025 11:00:00 AM, [address] [place] [address], [phone], Progress Notes * Joseph TALAVERADOB:[birth year] (73 yo M)Acc No.[id number]:08/13/2024 Patient:?Joseph Talavera :1950???Age:73 Y???Sex:Male Address:[address] [place] [address], [address] * true * Date:? Generated for Tacos clemons/Brandi/eTransmitting on:?11/08/2024 02:35 PM EDT
--- OUTSIDE RECORDS SUMMARY | 2024-11-08 14:36 | XMS_ITS | Clinical Summary ---
Author Organization [facility] Address [address] [place] [address] Care Team Providers Care Production Cook Name Role Phone Renny Lieberman MD Unavailable [phone] Pcp, No Primary Care Provider Unavailabl [...] atorvastatin (LIPITOR) 20 MG tablet 02/10/2023 Active zfstne-ecqhzgzwo-mh gnesium sulfates (Suprep Bowel Prep Kit) 17.5-3.13-1.6 [...] mean gradient 40s. S/p TAVR January 20 [facility] Diastolic dysfunction 12/13/2020 Overview (12/13/2020): Grade 2 [...] Info) Description 03/18/2025 11:30 AM EDT Appointment [facility] Department of Dermatology [place] [address] [place] [address] Karolina Price PA-C [address] [place] [address] Health Maintenance Due Date Last Done Comments [...] age to complete this topic Care Teams Production Cook Relationship Specialty Start Date End Date Pcp, No PCP - General General Medicine 01/07/24 Renny Lieberman MD [address] [place] [address] Primary Cell Biology Scientist Cardiovascular Disease 12/13/20
--- OUTSIDE RECORDS SUMMARY | 2024-11-08 14:36 | XMS_ITS | Encounter Summary ---
Author Organization [facility] Address [address] [place] [address] Care Team Providers Care Cementer Hand Name Role Phone Renny Lieberman MD Unavailable [phone] Joseph Talavera MD Primary Care Provider [phone] Renny Lieberman MD Primary Care Provider [phone] Pcp, No Primary Care Provider Unavailabl e Encounter Details Date Type Department Care Team (Late Contact Info) Description 01/04/2022 Scanned Document [facility] Heart & Vascular [place] [address] [facility], [address] [place] [address] Renny Lieberman MD [address] [place] [address] Social History Tobacco Use Types Packs/Day [...] Info) Description 03/18/2025 11:30 AM EDT Appointment [facility] Department of Dermatology [address] [place] [address] Karolina Price PA-C [address] [place] [address] documented as of this encounter Visit Diagnoses Not on filedocumented in this encounter Care Teams Cementer Hand Relationship Specialty Start Date End Date Joseph Talavera MD [address] [facility] [place] [address] PCP - General Internal Medicine 12/25/20 04/17/23 Renny Lieberman MD [address] [place] [address] PCP - General Cardiovascular Disease 04/18/23 01/06/24 Pcp, No PCP - General General Medicine 01/07/24 Renny Lieberman MD [address] [facility] 8 [place] [address] Primary Film Writer Cardiovascular Disease 12/13/20 documented as of this encounter
--- OUTSIDE RECORDS SUMMARY | 2024-11-08 14:36 | XMS_ITS | Encounter Summary ---
Author Organization [facility] Address [address] [place] [address] Care Team Providers Care Solar Manager Name Role Phone Renny Lieberman MD Unavailable [phone] Joseph Talavera MD Primary Care Provider [phone] Renny Lieberman MD Primary Care Provider [phone] Pcp, No Primary Care Provider Unavailabl e Encounter Details Date Type Department Care Team (Late Contact Info) Description 02/04/2022 Scanned Document [facility] Heart & Vascular [place] 100 [facility], [address] [place] [address] Renny Lieberman MD [address] [place] [address] Social History Tobacco Use Types Packs/Day [...] Info) Description 03/18/2025 11:30 AM EDT Appointment [facility] Department of Dermatology [address] [place] [address] Karolina Price PA-C [address] [place] [address] documented as of this encounter Visit Diagnoses Not on filedocumented in this encounter Care Teams Solar Manager Relationship Specialty Start Date End Date Joseph Talavera MD 4 [facility] [place] [address] PCP - General Internal Medicine 12/25/20 04/17/23 Renny Lieberman MD [address] [place] [address] PCP - General Cardiovascular Disease 04/18/23 01/06/24 Pcp, No PCP - General General Medicine 01/07/24 Renny Lieberman MD [address] [facility] 8 [place] [address] Primary Associate Attorney Cardiovascular Disease 12/13/20 documented as of this encounter
== END 2024-11-08 13:00 | disposition home or self-care (01) ==
LOC: HO.LNP 12:59
PROVIDERS: Visit Provider Internal Medicine
DX: I10 Essential (primary) hypertension (principal); D70.9 Neutropenia, unspecified; C85.80 Other specified types of non-Hodgkin lymphoma, unspecified site; Z95.2 Presence of prosthetic heart valve; R63.4 Abnormal weight loss; G47.00 Insomnia, unspecified
CPT/HCPCS: 80053; 81001; 82150; 83690; 85025; 87086

== ENCOUNTER 2024-11-24 08:55 | Outpatient (AMB) | payer OTHER, SELFPAY ==
--- NOTE | 2024-11-24 09:06 | MHC.OFFVISCO ---
Intake Intake Visit Reasons: Anticoagulation Allergies No Known Allergies Allergy (Verified 11/24/24 08:59) Medication List - Last Reconciled 11/24/24 by Yen Mitchell RN alfuzosin ER 10 mg PO DAILY aspirin (Adult Aspirin Regimen) 81 mg PO DAILY atenolol 25 mg PO DAILY atorvastatin 20 mg PO DAILY chlorhexidine gluconate 0.12% PO cholecalciferol (vitamin D3) 25 mcg PO DAILY clonazepam (Klonopin) 1 mg PO .prn dutasteride (Avodart) 0.5 mg PO DAILY irbesartan 150 mg PO DAILY warfarin 5 mg See Protocol PO DAILY Nursing Note INR: 2.5- in therapeutic range of 2-3 Medications and supplements reviewed- tadalafil d/c- no interaction with warfarin per micromedex No changes in health, diet, medications, or supplements, Denies any signs and symptoms of bleeding or bruising or clotting. 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 Illness/Depression: Yes (ANXIETY) Coding Level of Care Code Est Patient Level 1 Diagnoses Current use of anticoagulant therapy Z79.01 Results AMB INR Fingerstick AMB INR Fingerstick 2.5 Last Edit by Yen Mitchell RN on 11/24/24 09:09 interface delay Assessment & Plan Assessment & Plan (1) Current use of anticoagulant therapy: Code(s): Z79.01 - extermination inspector (current) use of anticoagulants Category: Medical
--- OUTSIDE RECORDS SUMMARY | 2024-11-24 09:43 | XMS_ITS ---
Author Organization Kody Morgan MD Address [address] [place], [place] [id number] Care Team Providers Care Behavioral School Counselors Name Role Phone Kody Morgan Primary Care Provider Allergies No Known Allergies Results Component Value Reference Range Notes Complete Blood Count Auto Di ff Reviewed date:11/08/2024 02:27:02 PM Interpretation: Performing Lab:[facility], [address] [place] [phone] Notes/Report: White Blood Count 6.0 4.8-10.8 X10*3/uL [...] X10*3/uL NRBC Abs Auto 0.000 0.0-0.012 X10*3/uL Urinalysis and Microscopic Reviewed date:11/08/2024 06:04:55 PM Interpretation: Performing Lab:[address] [phone] Notes/Report: Color Urine Yellow Appearance Urine Clear PH 6.0 5.0-9.0 Glucose Urine UA Negative Negative mg/dL Urine Blood Negative Negative Specific [place] - Urine 1.015 1.005-1.025 Urine Protein Negative Neg-Trace mg/dL Urine Ketones Negative Negative mg/dL Nitrite Urine Negative Negative Leukocyte Esterase Urine Negative Negative RBC Urine 0-2 0-2 /HPF WBC Urine 0-5 0-5 /HPF Squamous Epithelial Cell Urine 0-2 0-2 /HPF Bacteria Urine None Seen None Seen Hyaline Casts Urine 0-2 0-2 /LPF Comprehensive Thorofare. Panel Fa Reviewed date:11/08/2024 02:27:28 PM Interpretation: Performing Lab:[facility], [address] [place] [phone] Notes/Report: Sodium 139 135-145 mmol/L Potassium 4.8 [...] Amylase Reviewed date:11/08/2024 02:26:23 PM Interpretation: Performing Lab:[facility], [address] [place] [phone] Notes/Report: Amylase 99 28-100 U/L Lipase Reviewed date:11/08/2024 02:26:31 PM Interpretation: Performing Lab:[address] [address] Notes/Report: Lipase 23 8-78 U/L Urine Culture Reviewed date:11/09/2024 12:24:46 PM Interpretation: Performing Lab:[address] [address] Notes/Report: Urine Culture No growth. REASON FOR VISIT 3 MO F/U Medications Medication SIG (Take, Route, Frequency, Duration) Notes Start Date End Date Status Atenolol 25 MG 1 tablet Orally Once a day Active Atorvastatin Calcium 20 MG 1 tablet Orally Once a day Active traZODone HCl 50 MG 1 tablet at bedtime as needed Orally Once a day for 30 days 11/08/2024 Active Flomax 0.4 MG 1 capsule Orally Onc e a day Not-Taking Warfarin Sodium 5 MG 1 tablet Orally Onc e a day Active Avodart 0.5 MG 1 capsule Orally Onc e a day Active Vitamin D 25 MCG (1000 UT) 1 tablet Orally Once a day for 30 day(s) Active Aspirin 81 81 MG 1 tablet Orally Once a day for 30 day(s) Active KlonoPIN 1 MG 1 tablet Orally Once a day Active Irbesartan 75 MG 2 tablets Orally Onc e a day Active Problems Problem Type SNOMED Code ICD Code Onset Dates Problem Status W/U Status Risk Notes Problem Neutropenia (711371076) Neutropenia (D70.9) Active confirmed Problem Insomnia (859372430) Insomnia (G47.00) Active confirmed Vital Signs Blood pressure systolic 120 mm Hg 11/09/19 25 Blood pressure diastolic 52 mm Hg 025 Height 68 in 11/08/2024 Weight 158 lbs 11/08/2024 BMI 24.02 kg/m2 11/08/2024 weight is down 5 pounds [facility] [address] e 08-02-24 Encounters Encounter Location Date Provider Diagnosis Kody Morgan MD [address] [place], [place] [phone] 11/08/2024 Kody Morgan Essential hypertension I10 ; Indolent non-Hodgkins lymphoma C85.80 ; S/P TAVR (transcatheter aortic valve replacement) Z95.2 ; Weight loss R63.4 ; Neutropenia D70.9 and Insomnia G47.00 Assessments Encounter Date Diagnosis (ICD Code) Assessment Notes Treatment Notes Treatment Clinical Notes Section Notes 11/08/2024 Essential hypertension (ICD-10 - I10) doing well on meds. will continue current regiment 11/08/2024 Indolent non-Hodgkins lymphoma (ICD-10 - C85.80) 11/08/2024 S/P TAVR (transcatheter aortic valve replacement) (ICD-10 - Z95.2) on meds, will continue current regiment 11/08/2024 Weight loss (ICD-10 - R63.4) is afraid to eat due to the constipation. 11/08/2024 Neutropenia (ICD-10 - D70.9) will continue to monitor 11/08/2024 Insomnia (ICD-10 - G47.00) will continue current regiment Plan Of Treatment Medication Medication Name Sig Start Date Stop Date Notes Atenolol 25 MG 1 tablet Orally Once a day traZODone HCl 50 MG 1 tablet at bedtime as needed Orally Once a day for 30 days 11/08/2024 Warfarin Sodium 5 MG 1 tablet Orally Once a day Avodart 0.5 MG 1 capsule Orally Once a day Irbesartan 75 MG 2 tablets Orally Once a day Treatment Notes Assessment Notes Essential hypertension doing well on med s. will continue current regiment S/P TAVR (transcatheter aort ic valve replacement) on meds, will continue current regiment Weight loss is afraid to eat due to the constipation. Neutropenia will continue to mon itor Insomnia will continue curren t regiment Next Appt Details Provider Name:Kody Jama ier, 12/14/2024 11:15:00 AM, [address], [address], [place], [place], [phone], Provider Name:Kody Jama ier, 05/05/2025 07:15:00 AM, [address], [address], [place], [phone], Provider Name:Kody Jama ier, 05/12/2025 10:00:00 AM, [address], [address], [place], [phone], Provider Name:Kody Jama ier, 11/04/2025 07:45:00 AM, [address], [address], [place], [phone], Provider Name:Kody Jama ier, 11/11/2025 11:00:00 AM, [address], [address], [place], [phone], Progress Notes * Joseph TALAVERADOB:[birth year] (73 yo M)Acc No.[id number]:11/08/2024 Progress Notes Patient:?Joseph TALAVERA Provider:?Kody Morgan MD :1950???Age:73 Y???Sex:Male Yuan e:11/08/2024 Address:[address] [place] [address] Santi [address] [facility] [id number] Subjective: * Chief Complaints: * ???3 MO F/U * HPI: ???Symptom(s):?patient is a 73 yo male here for 3 month follow up visit, had another pet scan is improved/ saw dr lombardi for the hernia. still losing weight and has developed neutropenia. bowels still constipated. * ROS:?General/Constitutional:?Denies?Chills.?Denies?Fatigue.?Denies?Fever.?Denies?Headache.?ENT:?Patient denies?decreased sense of smell, any loss of taste, sore throat.?Denies?Sore throat.?Respiratory:?Denies?Cough.?Denies?Shortness of breath at rest.?Denies?Shortness of breath with exertion.?Gastrointestinal:?Denies?Diarrhea.?Denies?Nausea.?Musculoskeletal:?Patient denies?muscle aches.?Peripheral Vascular:?Patient denies?red and blue toes.? * Medical History:? * Surgical History:? * Hospitalization/Major Diagno stic Procedure:? * Medications:?TakingVitamin D 25 MCG (1000 UT) Tablet 1 tablet Orally Once a day KlonoPIN 1 MG Tablet 1 tablet Orally Once a day Aspirin 81 81 MG Tablet Delayed Release 1 tablet Orally Once a day Atorvastatin Calcium 20 MG Tablet 1 tablet Orally Once a day Irbesartan 75 MG Tablet 2 tablets Orally Once a day Atenolol 25 MG Tablet 1 tablet Orally Once a day Avodart 0.5 MG Capsule 1 capsule Orally Once a day Warfarin Sodium 5 MG Tablet 1 tablet Orally Once a day Taking Vitamin D 25 MCG (1000 UT) Tablet 1 tablet Orally Once a day Taking KlonoPIN 1 MG Tablet 1 tablet Orally Once a day Taking Aspirin 81 81 MG Tablet Delayed Release 1 tablet Orally Once a day Taking Atorvastatin Calcium 20 MG Tablet 1 tablet Orally Once a day Taking Irbesartan 75 MG Tablet 2 tablets Orally Once a day Taking Atenolol 25 MG Tablet 1 tablet Orally Once a day Taking Avodart 0.5 MG Capsule 1 capsule Orally Once a day Taking Warfarin Sodium 5 MG Tablet 1 tablet Orally Once a day Not-Taking/PRNFlomax 0.4 MG Capsule 1 capsule Orally Once a day Not-Taking/PRN Flomax 0.4 MG Capsule 1 capsule Orally Once a day DiscontinuedTadalafil 5 MG Tablet 1 tablet as needed Orally Once a day Medication List reviewed and reconciled with the patientDiscontinued Tadalafil 5 MG Tablet 1 tablet as needed Orally Once a day Medication List reviewed and reconciled with the patient * Allergies:?N.K.D.A.yes[Aller gies Verified] Objective: * Vitals:?Ht: 68, Wt: 158, BMI :24.02, BP:120/52, Wt-k.67. weight is down 5 pounds since 08-02-24. * Examination: ???General Examination: ?GENERAL APPEARANCE:?alert, well hydrated, in no distress.?HEAD:?normocephalic.?SKIN:?good turgor.?HEART:?no murmurs, rubs, gallops, regular rate and rhythm.?LUNGS:?no wheezes, rales, rhonchi, good air movement, clear to auscultation bilaterally.?ABDOMEN:?soft, nontender, nondistended, no rebound tenderness, abnormal with rt inguinal hernia.? Assessment: * Assessment: 1.?Essential hypertension - I10 (Primary)???2.?Indolent non-Hodgkins lymphoma - C85.80???3.?S/P TAVR (transcatheter aortic valve replacement) - Z95.2???4.?Weight loss - R63.4???5.?Neutropenia - D70.9???6.?Insomnia - G47.00??? Plan: * Treatment: 2.?Indolent non-Hodgkins lym phoma?LAB: Complete Blood Count Auto Diff (Collection Date & Time - 11/08/2024 11:15 AM) ?LAB: Comprehensive Thorofare. Panel Fast (Collection Date & Time - 11/08/2024 11:15 AM) ?LAB: Amylase (Collection Date & Time - 11/08/2024 11:15 AM) ?LAB: Lipase (Collection Date & Time - 11/08/2024 11:15 AM) 3.?S/P TAVR (transcatheter a ortic valve replacement)? Continue Warfarin Sodium Tablet, 5 MG, 1 tablet, Orally, Once a day.?LAB: Complete Blood Count Auto Diff (Collection Date & Time - 11/08/2024 11:15 AM) Notes: on meds, will continue current regiment?? 4.?Weight loss?LAB: Complete Blood Count Auto Diff (Collection Date & Time - 11/08/2024 11:15 AM) Notes: is afraid to eat due to the constipation. ?? 5.?Neutropenia?LAB: Urine Culture (Collection Date & Time - 11/08/2024 11:15 AM) ?LAB: Complete Blood Count Auto Diff (Collection Date & Time - 11/08/2024 11:15 AM) ?LAB: Urinalysis and Microscopic (Collection Date & Time - 11/08/2024 11:15 AM) Notes: will continue to monitor?? 6.?Insomnia? Start traZODone HCl Tablet, 50 MG, 1 tablet at bedtime as needed, Orally, Once a day, 30 days, 30, Refills 3.?LAB: Complete Blood Count Auto Diff (Collection Date & Time - 11/08/2024 11:15 AM) Notes: will continue current regiment?? * Procedure Codes:?02414 VENIP UNCT, ROUTINE* * * Sign off status: Completed true * Provider:?Kody Morgan MD Date:?0 11/08/2024 Generated for Christiani ng/Shankarg/eTransmitting on:?11/24/2024 09:43 AM EDT History and Physical Notes * HPI (History of Present Illness) Category Sub-Category Detail Notes Category Not es Symptom(s) patient is a 73 yo male here for 3 month follow up visit, had another pet scan is improved/ saw dr lombardi for the hernia. still losing weight and has developed neutropenia. bowels still constipated Examination Category Sub-Category Detail Notes Category Not es General Examination GENERAL APPEARANCE: alert, w ell hydrated, in no distress HEAD: normocephalic HEART: no murmurs, rubs, ga llops, regular rate and rhythm LUNGS: no wheezes, rales, r honchi, good air movement, clear to auscultation bilaterally ABDOMEN: soft, nontender, non distended, no rebound tenderness, abnormal with rt inguinal hernia SKIN: good turgor
--- OUTSIDE RECORDS SUMMARY | 2024-11-24 09:43 | XMS_ITS | Encounter Summary ---
Author Organization [facility] Address [address] [place] [address] Care Team Providers Care Residential Child Care Counselor Name Role Phone Renny Lieberman MD Unavailable [phone] Pcp, No Primary Care Provider Unavailabl e Encounter Details Date Type Department Care Team (Late st Contact Info) Description 01/30/2024 Scanned Document [facility] Heart & Vascular [facility] [address] [facility], [address] [place] [address] Renny Lieberman MD [address] [facility] 8 [place], [place] [id number] Social History Tobacco Use Types Packs/Day Years [...] EDT Appointment [facility] Department of Dermatology [place] [address] [place] [address] Karolina Price PA-C [address] [place], [place] [phone] documented as of this encounter Visit Diagnoses Not on filedocumented in this encounter Care Teams Residential Child Care Counselor Relationship Specialty Start Date End Date Pcp, No PCP - General General Medicine 01/07/24 Renny Lieberman MD [address] [place] [address] Primary Texture Artist Cardiovascular Disease 12/13/20 documented as of this encounter
--- OUTSIDE RECORDS SUMMARY | 2024-11-24 09:43 | XMS_ITS | Encounter Summary ---
Author Organization Formerly [facility] Address [address] [place] [address] Care Team Providers Care Retail Merchandiser Name Role Phone Renny Lieberman MD Unavailable [phone] Joseph Talavera MD Primary Care Provider [phone] Renny Lieberman MD Primary Care Provider [phone] Pcp, No Primary Care Provider Unavailabl e Encounter Details Date Type Department Care Team (Late st Contact Info) Description 02/27/2021 Scanned Document [facility] at [address] [phone] Estiven Larson MD [address] [place] [address] Social History Tobacco Use Types Packs/Day Years [...] EDT Appointment [facility] Department of Dermatology [place] [address] [place] [address] Karolina Price PA-C [address] [place], [place] [address] documented as of this encounter Visit Diagnoses Not on filedocumented in this encounter Care Teams Retail Merchandiser Relationship Specialty Start Date End Date Joseph Talavera MD [address] [place] [address] PCP - General Internal Medicine 12/25/20 04/17/23 Renny Lieberman MD [address] [place] [address] PCP - General Cardiovascular Disease 04/18/23 01/06/24 Pcp, No PCP - General General Medicine 01/07/24 Renny Lieberman MD [address] [place] [address] Primary Senior Care Assistant Cardiovascular Disease 12/13/20 documented as of this encounter
--- OUTSIDE RECORDS SUMMARY | 2024-11-24 09:43 | XMS_ITS ---
Author Organization Kody Morgan MD Address [address] [place] [address] [place] [phone] Care Team Providers Care Interviewing Clerk Name Role Phone Kody Morgan Primary Care Provider [phone] REASON FOR VISIT ? 6mos appt and PE appt Encounters Encounter Location Date Provider Diagnosis Kody Morgan MD [address] [place] [address] [place] [phone] 11/08/2024 Kody Morgan Plan Of Treatment Next Appt Details Provider Name:Kody mack, 12/14/2024 11:15:00 AM, [address] [place] [address], [address], [phone], Provider Name:Kody mack, 05/05/2025 07:15:00 AM, [address] [place] [address], [address], [phone], Provider Name:Kody mack, 05/12/2025 10:00:00 AM, [address] [place] [address], [address], [phone], Provider Name:Kody mack, 11/04/2025 07:45:00 AM, [address] [place] [address], [address], [phone], Provider Name:Kody mack, 11/11/2025 11:00:00 AM, [address] [place] [address], [phone], Progress Notes * Joseph TALAVERADOB:[birth year] (73 yo M)Acc No.[id number]:11/08/2024 Patient:?Joseph TALAVERA :1950???Age:73 Y???Sex:Male Address:[address] [place] [address] [facility] [place], [address] * true * Date:? Generated for Christiani deonte/Brandi/eTransmitting on:?11/24/2024 09:43 AM EDT
--- OUTSIDE RECORDS SUMMARY | 2024-11-24 09:43 | XMS_ITS | Encounter Summary ---
Author Organization [facility] Address [address] [place] [address] Care Team Providers Care Cluster Bore Operator Name Role Phone Renny Lieberman MD Unavailable [phone] Renny Lieberman MD Primary Care Provider [phone] Pcp, No Primary Care Provider Unavailabl e Encounter Details Date Type Department Care Team (Late Contact Info) Description 12/31/2023 Scanned Document [facility] Heart & Vascular [facility] [email or web address] [place] [address] Renny Lieberman MD [address] [place] [address] Social History Tobacco Use Types Packs/Day Years [...] EDT Appointment [facility] Department of Dermatology [place] [address] [phone] Karolina Price PA-C [email or web address] [place], [place] [phone] documented as of this encounter Visit Diagnoses Not on filedocumented in this encounter Care Teams Cluster Bore Operator Relationship Specialty Start Date End Date Renny Lieberman MD [address] [address] PCP - General Cardiovascular Disease 04/18/23 01/06/24 Pcp, No PCP - General General Medicine 01/07/24 Renny Lieberman MD [address] [phone] Primary Chemical Dependency Attendant Cardiovascular Disease 12/13/20 documented as of this encounter
--- OUTSIDE RECORDS SUMMARY | 2024-11-24 09:43 | XMS_ITS | Patient Health Record ---
Author Organization Kody Morgan MD Address [address] [place], [place] [id number] Care Team Providers Care Insurance Salesperson Name Role Phone Kody Morgan Primary Care Provider [phone] Allergies No Known Allergies Results Component Value Reference Range Notes Hold Gold Reviewed date:11/08/2024 05:58:22 PM Interpretation: Performing Lab:[facility], [address] [place] [phone] Notes/Report: Aubrey George See Note Specimen held untested for 24 hours; Call to request Chemistry testing. Complete Blood Count Auto Di ff Reviewed date:11/08/2024 02:27:02 PM Interpretation: Performing Lab:[facility], [address] [place] [phone] Notes/Report: White Blood Count 6.0 4.8-10.8 X10*3/uL [...] Microscopic Reviewed date:11/08/2024 06:04:55 PM Interpretation: Performing Lab:[facility], [address] [place] [phone] Notes/Report: Color Urine Yellow Appearance Urine Clear PH 6.0 5.0-9.0 Glucose Urine UA Negative Negative mg/dL Urine Blood Negative Negative Specific [place] - Urine 1.015 1.005-1.025 Urine Protein Negative Neg-Trace mg/dL Urine Ketones Negative Negative mg/dL Nitrite Urine Negative Negative Leukocyte Esterase Urine Negative Negative RBC Urine 0-2 0-2 /HPF WBC Urine 0-5 0-5 /HPF Squamous Epithelial Cell Urine 0-2 0-2 /HPF Bacteria Urine None Seen None Seen Hyaline Casts Urine 0-2 0-2 /LPF Comprehensive [place]. Panel Fa st Reviewed date:11/08/2024 02:27:28 PM Interpretation: Performing Lab:[facility], [address] [place] [phone] Notes/Report: Sodium 139 135-145 mmol/L Potassium 4.8 [...] Amylase Reviewed date:11/08/2024 02:26:23 PM Interpretation: Performing Lab:[address] [phone] Notes/Report: Amylase 99 28-100 U/L Lipase Reviewed date:11/08/2024 02:26:31 PM Interpretation: Performing Lab:[address] [phone] Notes/Report: Lipase 23 8-78 U/L Urine Culture Reviewed date:11/09/2024 12:24:46 PM Interpretation: Performing Lab:[address] [phone] Notes/Report: Urine Culture No growth. Reason For Referral No Information Medications Medication [...] Status W/U Status Risk Notes Problem Neutropenia (080405054) Neutropenia (D70.9) Active confirmed Problem 94666002 Prostatism (N40.0) Active confirmed Problem Insomnia (648042543) Insomnia (G47.00) Active confirmed Problem 82029716 Essential hypertension (I10) Active confirmed Problem 00004531 Hypercholesterem ia (E78.00) Active confirmed Problem 5741506741131 S/P TAVR (transcatheter aortic valve replacement) (Z95.2) Active confirmed Problem 709522454 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 [...] Location Date Provider Diagnosis Kody Morgan MD [address] [place] [address] Drive [address] [place] [phone] 08/02/2024 Kody Morgan Essential hypertensi on I10 ; 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 ; Indolent non-Hodgkins lymphoma C85.80 ; Hypercholesteremia E78.00 and S/P TAVR (transcatheter aortic valve replacement) Z95.2 Kody Morgan MD [address] [place] [address] Drive [address] [place] [id number] 11/08/2024 Kody Morgan Essential hypertensi on I10 ; Indolent non-Hodgkins lymphoma C85.80 ; S/P TAVR (transcatheter aortic valve replacement) Z95.2 ; Weight loss R63.4 ; Neutropenia D70.9 and Insomnia G47.00 Kody Morgan MD [address] [place], [place] [phone] 11/08/2024 Kody Morgan MD [address] [place] [address] Drive [address] [place], [place] [phone] 08/13/2024 Kody Morgan Assessments Encounter Date Diagnosis [...] Hypercholesteremia (ICD-10 - E78.00) is followed at [facility] when he get infusions, will continue current regiment and will continue to monitor 11/08/2024 Weight loss (ICD-10 - R63.4) is afraid to eat due to the constipation. 08/02/2024 S/P TAVR (transcatheter aortic valve replacement) (ICD-10 - Z95.2) is followed in [facility] 11/08/2024 Neutropenia (ICD-10 - D70.9) will continue to monitor 11/08/2024 Insomnia (ICD-10 - G47.00) will continue current regiment Plan Of Treatment Next Appt Details Provider Name:Kody Jama ier, 12/14/2024 11:15:00 AM, [address] [place] [address], [address] [place] [address], [id number], Provider Name:Kody Jama ier, 05/05/2025 07:15:00 AM, [address] [place] [address], Suite [facility], [place], [place], [phone], Provider Name:Kody Jama ier, 05/12/2025 10:00:00 AM, [address], [address], [place], [place], [phone], Provider Name:Kody Jama ier, 11/04/2025 07:45:00 AM, [address] [facility], [address], [place], [phone], Provider Name:Kody Jama ier, 11/11/2025 11:00:00 AM, [address], [address], [place], [phone], Insurance Providers Payer Name Payer Address Payer Phone Subscriber Number Group Number Insured Name Patient Relationship to Insured Coverage Start Date Coverage End Date [facility] [address] [place] [phone] [id number] Joseph Talavera Self - patient is the insured Medical (General) History Medical History History ICD Code could not have colonoscopy due to valve and had FIT 2022 that was negative
--- OUTSIDE RECORDS SUMMARY | 2024-11-24 09:44 | XMS_ITS | Encounter Summary ---
Author Organization [facility] Address [address] [place] [address] Care Team Providers Care Sales Forecast Analyst Name Role Phone Renny Lieberman MD Unavailable [phone] Joseph Talavera MD Primary Care Provider Renny Lieberman MD Primary Care Provider [phone] Pcp, No Primary Care Provider Unavailabl e Encounter Details Date Type Department Care Team (Late st Contact Info) Description 09/17/2022 Scanned Document [facility] Heart & Vascular [facility] [address] [place] [address] Renny Lieberman MD [address] [place] [address] Social History Tobacco Use Types Packs/Day Years [...] EDT Appointment [facility] Department of Dermatology [place] [address] [facility] [place] [phone] Karolina Price PA-C [address] [facility] [place], [place] [address] documented as of this encounter Visit Diagnoses Not on filedocumented in this encounter Care Teams Sales Forecast Analyst Relationship Specialty Start Date End Date Joseph Talavera MD [address] [place] [address] PCP - General Internal Medicine 12/25/20 04/17/23 Renny Lieberman MD [address] [place] [address] PCP - General Cardiovascular Disease 04/18/23 01/06/24 Pcp, No PCP - General General Medicine 01/07/24 Renny Lieberman MD [address] [place] [address] Primary Strain Technician Cardiovascular Disease 12/13/20 documented as of this encounter
--- OUTSIDE RECORDS SUMMARY | 2024-11-24 09:44 | XMS_ITS | Encounter Summary ---
Author Organization [facility] Address [address] [place] [address] Care Team Providers Care Senior Client Advisor Name Role Phone Renny Lieberman MD Unavailable [phone] Joseph Talavera MD Primary Care Provider [phone] Renny Lieberman MD Primary Care Provider [phone] Pcp, No Primary Care Provider Unavailabl e Encounter Details Date Type Department Care Team (Late Contact Info) Description 02/16/2021 Scanned Document [facility] Heart & Vascular [place] 100 [facility], [address] [place] [address] Renny Lieberman MD 111 [facility] 8 [place], [place] [phone] Social History Tobacco Use Types Packs/Day Years [...] EDT Appointment [facility] Department of Dermatology [place] [address] [facility] [address] [place] [address] Karolina Price PA-C [address] [facility] [address] [place], [place] [phone] documented as of this encounter Visit Diagnoses Not on filedocumented in this encounter Care Teams Senior Client Advisor Relationship Specialty Start Date End Date Joseph Talavera MD [address] [place] [address] PCP - General Internal Medicine 12/25/20 04/17/23 Renny Lieberman MD [address] [place] [address] PCP - General Cardiovascular Disease 04/18/23 01/06/24 Pcp, No PCP - General General Medicine 01/07/24 Renny Lieberman MD [address] [place] [address] Primary Osteopathic Medicine Teacher Cardiovascular Disease 12/13/20 documented as of this encounter
--- OUTSIDE RECORDS SUMMARY | 2024-11-24 09:44 | XMS_ITS ---
Author Organization Kody Morgan MD Address [address] [place] [address] [place] [phone] Care Team Providers Care Hull And Deck Remover Name Role Phone Kody Morgan Primary Care Provider REASON FOR VISIT PET/CT Results - 08/12/24 Encounters Encounter Location Date Provider Diagnosis Kody Morgan MD [address] [place] [address] [place] [phone] 08/13/2024 Kody Morgan Plan Of Treatment Next Appt Details Provider Name:Kody mack, 12/14/2024 11:15:00 AM, [address] [place] [address], [address], [phone], Provider Name:Kody mack, 05/05/2025 07:15:00 AM, [address] [place] [address], [address], [phone], Provider Name:Kody mack, 05/12/2025 10:00:00 AM, [address] [place] [address], [address], [phone], Provider Name:Kody mack, 11/04/2025 07:45:00 AM, [address] [place] [address], [address], [phone], Provider Name:Kody mack, 11/11/2025 11:00:00 AM, [address] [address], [phone], Progress Notes * Joseph TALAVERADOB:[birth year] (73 yo M)Acc No.[id number]:08/13/2024 Patient:?Joseph Talavera :1950???Age:73 Y???Sex:Male Address:[address] [place] [address], [address] * true * Date:? Generated for Tacos clemons/Brandi/eTransmitting on:?11/24/2024 09:43 AM EDT
--- OUTSIDE RECORDS SUMMARY | 2024-11-24 09:44 | XMS_ITS | Encounter Summary ---
Author Organization [facility] Address [address] [place] [address] Care Team Providers Care Brim And Crown Presser Name Role Phone Renny Lieberman MD Unavailable [phone] Joseph Talavera MD Primary Care Provider [phone] Renny Lieberman MD Primary Care Provider [phone] Pcp, No Primary Care Provider Unavailabl e Encounter Details Date Type Department Care Team (Late Contact Info) Description 01/04/2022 Scanned Document formerly [facility] [place] 100 [facility], [address] [place] [address] Renny Lieberman MD [address] [place] [address] Social History Tobacco Use Types Packs/Day [...] Info) Description 03/18/2025 11:30 AM EDT Appointment [facility] Department of Dermatology [address] [place] [address] Karolina Price PA-C [address] [place] [address] documented as of this encounter Visit Diagnoses Not on filedocumented in this encounter Care Teams Brim And Crown Presser Relationship Specialty Start Date End Date Joseph Talavera MD [address] [place] [address] PCP - General Internal Medicine 12/25/20 04/17/23 Renny Lieberman MD [address] [place] [address] PCP - General Cardiovascular Disease 04/18/23 01/06/24 Pcp, No PCP - General General Medicine 01/07/24 Renny Lieberman MD [address] [facility] 8 [place] [address] Primary Gluing Machine Operator Cardiovascular Disease 12/13/20 documented as of this encounter
--- OUTSIDE RECORDS SUMMARY | 2024-11-24 09:44 | XMS_ITS | Clinical Summary ---
Author Organization [facility] Address [address] [place] [address] Care Team Providers Care Box Car Washer Name Role Phone Pcp, No MD Primary [...] mouth daily as needed. 02/23/2021 Active omega 8-vyw-aki-fish oil (Fish OiL) 1,000 mg (120 mg-180 [...] Health Maintenance Due Date Last Done Comments HIV Screening 1950 COVID-19 Vaccine (#1) 1953 DTaP,Tdap,and Td Vaccines (1 - Tdap) 1966 Hepatitis C Screening 1966 Pneumococcal Vaccine, 50+ Ye ars (1 of 2 - PCV) 11/16/1967 Zoster Vaccines (1 of 2) 11/16/1967 Influenza Vaccine (#1) 2024 Colorectal Cancer Screening Discontinued FIT Discontinued 09/25/2023 CT Colonography Discontinued Colonoscopy Discontinued FIT-DNA (Cologuard) Discontinued FOBT Discontinued Flex Sigmoidoscopy - 5y Discontinued HPV Vaccines Aged Out No longer eligi [...] Hemoglobin Negative Negative 09/25/2023 2:11 PM EST [facility] Comment:This is a screening test [...] FLUIDS AND STOOLS SHRUTI ERAZO Final Result [facility] [address] [place] [address], [place] [phone] from Last 3 Months or Most Recently Relevant to Health Maintenance Insurance [employer] Care Teams Box Car Washer Relationship Specialty Start Date End Date Pcp, MD Heather [address] [place] [address] PCP - General Internal Medicine 09/15/23
--- OUTSIDE RECORDS SUMMARY | 2024-11-24 09:44 | XMS_ITS | Encounter Summary ---
Author Organization [facility] Address [address] [place] [address] Care Team Providers Care Assembly Machine Set Up Mechanic Name Role Phone Renny Lieberman MD Unavailable Pcp, No Primary Care Provider Unavailabl e Encounter Details Date Type Department Care Team (Late st Contact Info) Description 11/11/2024 Telephone [facility] [address] [facility] [address] [place] [address] Jared Abdalla Social History Tobacco Use Types Packs/Day Years [...] on file documented as of this encounter Miscellaneous Notes * Telephone Encounter - Jared Abdalla - 11/11/2024 11:56 AM EDT Colon recall. Patient declined and stated he will call us back . Call got disconnected. OCS documented in this encounter Plan of Treatment Upcoming Encounters Date Type Department Care Team (Late st Contact Info) Description 03/18/2025 11:30 AM EDT Appointment [facility] Department of Dermatology [place] [address] [facility] [place] [address] Karolina Price PA-C [address] [facility] [place] [address] documented as of this encounter Visit Diagnoses Not on filedocumented in this encounter Care Teams Assembly Machine Set Up Mechanic Relationship Specialty Start Date End Date Pcp, No PCP - General General Medicine 01/07/24 Renny Lieberman MD [address] [address] Primary Press Smith Helper Cardiovascular Disease 12/13/20 documented as of this encounter
--- OUTSIDE RECORDS SUMMARY | 2024-11-24 09:44 | XMS_ITS | Encounter Summary ---
Author Organization [facility] Address [address] [place] [address] Care Team Providers Care Smoking Tobacco Packing Machine Hand Name Role Phone Renny Lieebrman MD Unavailable [phone] Joseph Talavera MD Primary Care Provider [phone] Renny Lieberman MD Primary Care Provider [phone] Pcp, No Primary Care Provider Unavailabl e Encounter Details Date Type Department Care Team (Late Contact Info) Description 02/04/2022 Scanned Document [facility] Heart & Vascular [place] 100 [facility], [address] [place] [address] Renny Lieberman MD [address] [place] [address] Social History Tobacco Use Types Packs/Day [...] Info) Description 03/18/2025 11:30 AM EDT Appointment [facility] Department of Dermatology [address] [place] [address] Karolina Price PA-C [address] [place] [address] documented as of this encounter Visit Diagnoses Not on filedocumented in this encounter Care Teams Smoking Tobacco Packing Machine Hand Relationship Specialty Start Date End Date Joseph Talavera MD 4 [facility] [address] PCP - General Internal Medicine 12/25/20 04/17/23 Renny Lieberman MD [address] [place] [address] PCP - General Cardiovascular Disease 04/18/23 01/06/24 Pcp, No PCP - General General Medicine 01/07/24 Renny Lieberman MD [address] [facility] 8 [place] [address] Primary Brazing Machine Setter Cardiovascular Disease 12/13/20 documented as of this encounter
--- OUTSIDE RECORDS SUMMARY | 2024-11-24 09:44 | XMS_ITS | Clinical Summary ---
Author Organization [facility] Address [address] [place] [address] Care Team Providers Care Risk Control Analyst Name Role Phone Renny Lieberman MD Unavailable [phone] Pcp, No Primary Care Provider Unavailabl [...] atorvastatin (LIPITOR) 20 MG tablet 02/10/2023 Active uwtjxg-mapikgutj-xc gnesium sulfates (Suprep Bowel Prep Kit) 17.5-3.13-1.6 [...] - mean gradient 40s. S/p TAVR January 20' -[facility] Diastolic dysfunction 12/13/2020 Overview (12/13/2020): Grade 2 on echo 2014 Other hyperlipidemia 12/13/2020 Encounters Date Type Department Care Team Description 11/11/2024 Telephone [facility] 85 [facility] [address] [place] [address] Jared Abdalla from Last 3 Months Social History Tobacco Use Types Packs/Day Years [...] EDT Appointment [facility] Department of Dermatology [place] [address] [place] [address] Karolina Price PA-C [address] [place], [place] [address] Health Maintenance Due Date Last Done Comments [...] age to complete this topic Care Teams Risk Control Analyst Relationship Specialty Start Date End Date Pcp, No PCP - General General Medicine 01/07/24 Renny Lieberman MD [address] [address] Primary Mine Supervisor Cardiovascular Disease 12/13/20
[2024-11-24 15:50] LABS: ~PT, ~INR - Anti Coag Clinic 2.5 (0.9-1.1)
== END 2024-11-24 09:13 | disposition home or self-care (01) ==
LOC: HO.ACS 08:55
PROVIDERS: PCP Internal Medicine Hematology; Visit Provider Internal Medicine Medical Oncology
DX: Z79.01 Long term (current) use of anticoagulants (principal)

== ENCOUNTER → 2024-11-24 08:55 | Outpatient (BNVA) | payer OTHER, SELFPAY | PROVIDERS: PCP Internal Medicine Hematology; Visit Provider Internal Medicine Medical Oncology | DX: Z95.2 Presence of prosthetic heart valve (principal); Z51.81 Encounter for therapeutic drug level monitoring; Z79.01 Long term (current) use of anticoagulants | CPT/HCPCS: 85610; 99211 ==

== ENCOUNTER → 2024-12-28 09:33 | Outpatient (BNVA) | payer OTHER, SELFPAY | PROVIDERS: PCP Internal Medicine Hematology; Visit Provider Internal Medicine Medical Oncology ==

== ENCOUNTER 2025-01-12 09:10 | Outpatient (AMB) | payer OTHER, SELFPAY ==
--- NOTE | 2025-01-12 09:37 | MHC.OFFVISCO ---
Intake Intake Visit Reasons: Anticoagulation Allergies No Known Allergies Allergy (Verified 11/24/24 08:59) Nursing Note PT. BEGAN SELF CATHETERIZATION AT NIGHT THIS WEEK, AND STRESS LEVEL IS HEIGHTENED. HE REQUESTED INR HERE TODAY HE NOTED SOME BLOOD WHEN REMOVING THE CATH. THIS MORNING. HIS UROLOGIST ASSURED HIM THAT THIS IS NOT UNUSUAL, BUT PT. SELF TESTED TODAY AT HOME GETTING AN INR OF 4.2. PT.AGREES TO HOLD WARFARIN TODAY, AND WILL TEST AGAIN TOMORROW. IF INR IS NOT BACK WITHIN RANGE WILL REDUCE 5/15 DOSE TO 5MGM OTHERWISE RESUME USUAL DOSE AND FOLLOW-UP HERE IN OFFICE IN 1 WEEK. TO CALL [facility] IF ANY FURTHER QUESTIONS/CONCERNS ARISE. PT.WILL BE SURE TO HAVE GREENS TODAY AND 2-3X WEEKLY. WILL BE CAREFUL WITH WATERMELON/REDS,ETC. GOOD UNDERSTANDING OF INSTR.TODAY. TO REFER TO UROLOGIST FOR ANY CATH. 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 Illness/Depression: Yes (ANXIETY) Coding Level of Care Code Est Patient Level 1 Diagnoses Current use of anticoagulant therapy Z79.01 Results AMB INR Fingerstick AMB INR Fingerstick 4.1 Last Edit by Kathie Tim RN on 01/12/25 09:21 Assessment & Plan Assessment & Plan (1) Current use of anticoagulant therapy: Code(s): Z79.01 - medical terminologist (current) use of anticoagulants Category: Medical
--- OUTSIDE RECORDS SUMMARY | 2025-01-12 09:37 | XMS_ITS ---
Author Organization Kody Morgan MD Address [address] [place] [address] [place] [phone] Care Team Providers Care Calciner Operator Name Role Phone Kody Morgan Primary Care Provider [phone] REASON FOR VISIT ? 6mos appt and PE appt Encounters Encounter Location Date Provider Diagnosis Kody Morgan MD [address] [place] [address] [place] [phone] 11/08/2024 Kody Morgan Plan Of Treatment Next Appt Details Provider Name:Kody mack, 02/11/2025 02:00:00 PM, [address] [place] [address], [address], [phone], Provider Name:Kody mack, 05/05/2025 07:15:00 AM, [address] [place] [address], [address], [phone], Provider Name:Kody mack, 05/12/2025 10:00:00 AM, [address] [place] [address], [address], [phone], Provider Name:Kody mack, 11/04/2025 07:45:00 AM, [address] [place] [address], [address], [phone], Provider Name:Kody mack, 11/11/2025 11:00:00 AM, [address] [place] [address], [phone], Progress Notes * Joseph TALAVERADOB:[birth year] (73 yo M)Acc No.[id number]:11/08/2024 Patient:?Joseph TALAVERA :1950???Age:73 Y???Sex:Male Address:[address] [place] [address] [facility] [place], [address] * true * Date:? Generated for Christiani deonte/Brandi/eTransmitting on:?01/12/2025 09:37 AM EDT
--- OUTSIDE RECORDS SUMMARY | 2025-01-12 09:38 | XMS_ITS | Clinical Summary ---
Author Organization [facility] Address [address] [place] [address] Care Team Providers Care Process Engineering Intern Name Role Phone Renny Lieberman MD Unavailable Pcp, No Primary Care Provider Unavailabl e Allergies No known active allergies Medications atenolol (TENORMIN) 25 MG tablet Take 1 tablet (25 mg total) by mouth. Takes daily and an extra tablet daily as needed 1 Active aspirin enteric coated (ECOTRIN LOW STRENGTH) [...] 500 MG capsule Prior to Dental Procedures 2 Active cholecalciferol (CHOLECALCIFEROL ) 25 MCG (1000 UT) tablet Take 1 tablet (1,000 Units total) by mouth daily. Active atorvastatin (LIPITOR) 20 MG tablet 3 Active sodium-potassium -magnesium sulfates (Suprep Bowel Prep Kit) 17.5-3.13-1.6 GM/177ML Solution solutionIndicati ons:Change in bowel habit Take bowel preparation as prescribed/advis ed 2 each 3 Active bethanechol (URECHOLINE) 25 MG tablet Take 1 tablet (25 mg total) by mouth 3 (three) times a day. 4 Active sulfamethoxazole -trimethoprim (BACTRIM DS,SEPTRA DS) 800-160 MG per tablet Take 1 tablet by mouth 2 (two) times a day. 4 Active tadalafil (CIALIS) 5 mg tablet Take 1 tablet (5 mg total) by mouth every morning. 4 Active tamsulosin (FLOMAX) 0.4 MG capsule Take 1 capsule (0.4 mg total) by mouth nightly. 4 Active Jantoven 5 MG tablet 4 Active irbesartan (AVAPRO) 150 MG tabletIndication s:Essential hypertension Take 1 tablet (150 mg total) by mouth daily. 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 S/p TAVR January 20' -[facility] [place] Diastolic dysfunction 12/13/2020 Overview (12/13/2020): Grade 2 on echo 2014 Other hyperlipidemia 12/13/2020 Encounters Date Type Department Care Team Description 01/12/2025 Orders Only [facility] Heart & Vascular [place] [address] [place] [address] Provider, MD Faustino 12/17/[address] [place] [address] Jared Abdalla 12/06/2024 Telephone [facility] [address] [facility] [address] [place] [address] Santosh Roa 11/11/2024 Telephone [facility] [address] [facility] [address] [place] [address] Jared Abdalla from Last 3 Months Social History Tobacco Use Types Packs/Day Years Used Date Smoking Tobacco: Never Smokeless Tobacco: Never Tobacco Cessation:Counseling Given: Not Answered Alcohol Use Standard Drinks/Week Comments Not Currently 0 (1 standard drink = 0.6 oz pur e alcohol) Comments Unknown Sex and Gender Information Value Date Recorded Sex Assigned at Choose not to disclose 06/2024 8:09 PM EST Legal Sex Male 5:54 PM EDT Gender Identity Not on file Sexual Orientation Not on file 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 on file Not on inga e Not on file Last Filed Vital Signs [...] EDT Appointment [facility] Department of Dermatology [address] [phone] Karolina Price PA-C [address] [id number] Health Maintenance Due Date Last Done Comments Hepatitis C Virus Screening 1950 DTaP/Tdap/Td Vaccines (1 - Tdap) 11/16/1967 Pneumococcal Vaccines 50+ (1 of 2 - PCV) 11/16/1967 Zoster (Shingles) Vaccine (1 of 2) 1998 DXA Bone Density (Females,Ag es 65 and older) 2013 RSV Vaccine 60 years and old er and Patients (1 - 1-dose 75+ series) 11/16/2023 COVID-19 Vaccine ( - 2023-2 5 season) 2024 Influenza Vaccine 04/01/2025 Hepatitis B Vaccines Aged Out No long er eligible based on patient's age to complete this topic Procedures Procedure Name Priority Date/Time Associated Diagnosis Comments AMB REFERRAL TO ANTICOAGULATION MONITORING Routine 12/30/2024 8:53 AM EDT from Last 3 Months Results * Amb Referral to Anticoagulation Monitori (12/30/2024 8:53 AM EDT) us External Provider MD OUTPATIENT REFERRAL ORDERAB LES Final Result from Last 3 Months Insurance [facility] MEDICARE [place] [id number] MEDICARE PART A [facility] Care Teams Process Engineering Intern Relationship Specialty Start Date End Date Pcp, No PCP - General General Medicine 01/07/24 Renny Lieberman MD [address] [place] [address] 8 [place] [address] Primary Acquisition Manager Cardiovascular Disease 12/13/20
--- OUTSIDE RECORDS SUMMARY | 2025-01-12 09:38 | XMS_ITS | Encounter Summary ---
Author Organization [facility] Address [address] [place] [address] Care Team Providers Care Investment Advisor Name Role Phone Renny Lieberman MD Unavailable [phone] Renny Lieberman MD Primary Care Provider [phone] Pcp, No Primary Care Provider Unavailabl e Encounter Details Date Type Department Care Team (Late Contact Info) Description 12/31/2023 Scanned Document [facility] Heart & Vascular [place] [address] [place] [address] Renny Lieberman MD [address] [place] [address] Social History Tobacco Use Types Packs/Day [...] Not on inga e Not on file documented as of this encounter Plan of Treatment Upcoming Encounters Date Type Department Care Team (Late Contact Info) Description 03/18/2025 11:30 AM EDT Appointment [facility] Department of Dermatology [place] [address] [facility] [address] [place] [phone] Karolina Price PA-C [address] [facility] 202 [place] [address] documented as of this encounter Visit Diagnoses Not on filedocumented in this encounter Care Teams Investment Advisor Relationship Specialty Start Date End Date Renny Lieberman MD 111 [facility] 8 [place] [address] PCP - General Cardiovascular Disease 04/18/23 01/06/24 Pcp, No PCP - General General Medicine 01/07/24 Renny Lieberman MD 111 [facility] 8 [place] [address] Primary Skidder Runner Cardiovascular Disease 12/13/20 documented as of this encounter
--- OUTSIDE RECORDS SUMMARY | 2025-01-12 09:38 | XMS_ITS | Encounter Summary ---
Author Organization [facility] Address [address] [place] [address] Care Team Providers Care Chimney Repairer Name Role Phone Renny Lieberman MD Unavailable [phone] Joseph Talavera MD Primary Care Provider [phone] Renny Lieberman MD Primary Care Provider [phone] Pcp, No Primary Care Provider Unavailabl e Encounter Details Date Type Department Care Team (Late Contact Info) Description 02/16/2021 Scanned Document [facility] Heart & Vascular [place] [address] [facility], [address] [place] [address] Renny Lieberman MD 111 [facility] 8 [place] [address] Social History Tobacco Use Types Packs/Day Years Used Date Smoking Tobacco: Never Smokeless Tobacco: Never Comments Unknown Sex and Gender Information Value [...] EDT Appointment [facility] Department of Dermatology [place] [address] [facility] [address] [place] [phone] Karolina Price PA-C [address] [facility] [address] [place], [place] [phone] documented as of this encounter Visit Diagnoses Not on filedocumented in this encounter Care Teams Chimney Repairer Relationship Specialty Start Date End Date Joseph Talavera MD [address] [place] [address] PCP - General Internal Medicine 12/25/20 04/17/23 Renny Lieberman MD [address] [place] [address] PCP - General Cardiovascular Disease 04/18/23 01/06/24 Pcp, No PCP - General General Medicine 01/07/24 Renny Lieberman MD [address] [place] [address] Primary Portable Canteen Operator Cardiovascular Disease 12/13/20 documented as of this encounter
--- OUTSIDE RECORDS SUMMARY | 2025-01-12 09:38 | XMS_ITS | Encounter Summary ---
Author Organization [facility] Address [address] [place] [address] Care Team Providers Care Repairer Helper Name Role Phone Renny Lieberman MD Unavailable [phone] Joseph Talavera MD Primary Care Provider [phone] Renny Lieberman MD Primary Care Provider [phone] Pcp, No Primary Care Provider Unavailabl e Encounter Details Date Type Department Care Team (Late Contact Info) Description 02/04/2022 Scanned Document [facility] Heart & Vascular [place] [address] [facility], [address] [place] [address] Renny Lieberman MD [address] [place] [address] Social History Tobacco Use Types Packs/Day [...] Info) Description 03/18/2025 11:30 AM EDT Appointment [facility] Department of Dermatology [place] [address] [facility] [address] [place] [phone] Karolina Price PA-C [address] [facility] 202 [place] [address] documented as of this encounter Visit Diagnoses Not on filedocumented in this encounter Care Teams Repairer Helper Relationship Specialty Start Date End Date Joseph Talavera MD [address] [place] [address] PCP - General Internal Medicine 12/25/20 04/17/23 Renny Lieberman MD [address] [place] [address] PCP - General Cardiovascular Disease 04/18/23 01/06/24 Pcp, No PCP - General General Medicine 01/07/24 Renny Lieberman MD [address] [place] [address] [facility] 8 [place] [address] Primary English Division Chair Cardiovascular Disease 12/13/20 documented as of this encounter
--- OUTSIDE RECORDS SUMMARY | 2025-01-12 09:38 | XMS_ITS | Clinical Summary ---
Author Organization [facility] Address [address] [place] [address] Care Team Providers Care Dry Cans Back Tender Name Role Phone Pcp, No MD Primary [...] mouth daily as needed. 02/23/2021 Active omega 4-pml-avh-fish oil (Fish OiL) 1,000 mg (120 mg-180 [...] Vaccines (1 of 2) 11/16/1967 Influenza Vaccine (Season Ended) 2025 Colorectal Cancer Screening Discontinued FIT Discontinued 09/25/2023 [...] Hemoglobin Negative Negative 09/25/2023 2:11 PM EST [facility] Comment:This is a screening test [...] FLUIDS AND STOOLS SHRUTI ERAZO Final Result [facility] [address] [place] [address], [place] [phone] from Last 3 Months or Most Recently Relevant to Health Maintenance Insurance [employer] Care Teams Dry Cans Back Tender Relationship Specialty Start Date End Date Pcp, MD [place] [address] [place] [address] PCP - General Internal Medicine 09/15/23
--- OUTSIDE RECORDS SUMMARY | 2025-01-12 09:38 | XMS_ITS | Encounter Summary ---
Author Organization [facility] Address [address] [place] [address] Care Team Providers Care Heavy Equipment Sales Manager Name Role Phone Renny Lieberman MD Unavailable [phone] Joseph Talavera MD Primary Care Provider [phone] Renny Lieberman MD Primary Care Provider [phone] Pcp, No Primary Care Provider Unavailabl e Encounter Details Date Type Department Care Team (Late Contact Info) Description 01/04/2022 Scanned Document [facility] Heart & Vascular [place] [address] [facility], [address] [place] [address] Renny Lieberman MD [address] [place] [address] Social History Tobacco Use Types Packs/Day [...] Info) Description 03/18/2025 11:30 AM EDT Appointment [facility] Department of Dermatology [place] [address] [facility] [address] [place] [phone] Karolina Price PA-C [address] [email or web address] [address] [place] [address] documented as of this encounter Visit Diagnoses Not on filedocumented in this encounter Care Teams Heavy Equipment Sales Manager Relationship Specialty Start Date End Date Joseph Talavera MD [address] [place] [address] PCP - General Internal Medicine 12/25/20 04/17/23 Renny Lieberman MD [address] [place] [address] PCP - General Cardiovascular Disease 04/18/23 01/06/24 Pcp, No PCP - General General Medicine 01/07/24 Renny Lieberman MD [address] [place] [facility] [[email or web address] 8 [place] [address] Primary Rolling Chair Pusher Cardiovascular Disease 12/13/20 documented as of this encounter
--- OUTSIDE RECORDS SUMMARY | 2025-01-12 09:38 | XMS_ITS | Encounter Summary ---
Author Organization [facility] Address [address] [place] [address] Care Team Providers Care Auto Body Repairer Name Role Phone Renny Lieberman MD Unavailable [phone] Pcp, No Primary Care Provider Unavailabl e Encounter Details Date Type Department Care Team (Late st Contact Info) Description 12/06/[address] [facility] [address] [address] Santosh Roa [address] [place], [place] [address] Social History Tobacco Use Types Packs/Day Years [...] encounter Miscellaneous Notes * Telephone Encounter - Santosh Roa - 12/06/2024 3:44 PM EDT SMS SENT: This is from Dr. Ferrer at [facility] to let you know you are due for follow-up care. Please call us at . Reply Stop to opt out. documented in this encounter Plan of Treatment Upcoming Encounters Date Type Department Care Team (Late st Contact Info) Description 03/18/2025 11:30 AM EDT Appointment [facility] Department of Dermatology [place] [address] [facility] [address] [place] [phone] Karolina Price PA-C 1111 [facility] 202 [place], [place] [address] documented as of this encounter Visit Diagnoses Not on filedocumented in this encounter Care Teams Auto Body Repairer Relationship Specialty Start Date End Date Pcp, No PCP - General General Medicine 01/07/24 Renny Lieberman MD 111 [facility] 8 [place] [address] Primary Inside Trucker Cardiovascular Disease 12/13/20 documented as of this encounter
--- OUTSIDE RECORDS SUMMARY | 2025-01-12 09:38 | XMS_ITS | Encounter Summary ---
Author Organization [facility] Address [address] [place] [address] Care Team Providers Care Plant Technician/Control Room Operator Name Role Phone Renny Lieberman MD Unavailable [phone] Pcp, No Primary Care Provider Unavailabl e Reason for Referral * Specialty Diagnoses / Procedures Referred By Contac t Referred To Contact Anticoagulation [facility] [address] [address] Referral ID Status Reason Start Date Expiration Date Visits Re quested Visits Authorized Comments This order was created through External Result Entry Encounter Details Date Type Department Care Team ([facility] [address] Contact Info) Description 01/12/2025 Orders Only [facility] Heart & Vascular [place] [address] [facility] [address] [place] [address] ProviderFaustino MD [address] [place], [place] [phone] Social History Tobacco Use Types Packs/Day Years [...] EDT Appointment [facility] Department of Dermatology [place] [address] [facility] [place] [phone] Karolina Price PA-C [address] [place] [address] documented as of this encounter Procedures Procedure Name Priority Date/Time Associated Diagnosis Comments AMB REFERRAL TO ANTICOAGULATION MONITORING Routine 12/30/2024 8:53 AM EDT documented in this encounter Results * Amb Referral to Anticoagulation Monitori (12/30/2024 8:53 AM EDT) us External Provider OUTPATIENT REFERRAL ORDERAB LES Final Result documented in this encounter Visit Diagnoses Not on filedocumented in this encounter Care Teams Plant Technician/Control Room Operator Relationship Specialty Start Date End Date Pcp, No PCP - General General Medicine 01/07/24 Renny Lieberman MD 111 [facility] 8 [place] [address] Primary Textile Designs Sales Representative Cardiovascular Disease 12/13/20 documented as of this encounter
--- OUTSIDE RECORDS SUMMARY | 2025-01-12 09:38 | XMS_ITS | Patient Health Record ---
Author Organization Kody Morgan MD Address [address] [place], [place] [id number] Care Team Providers Care Travertine Installer Name Role Phone Kody Morgan Primary Care Provider [phone] Allergies No Known Allergies Results Component Value Reference Range Notes Hold Gold Reviewed date:11/08/2024 05:58:22 PM Interpretation: Performing Lab:[facility], [address] [place] [phone] Notes/Report: Aubrey George See Note Specimen held untested for 24 hours; Call to request Chemistry testing. Complete Blood Count Auto Di ff Reviewed date:11/08/2024 02:27:02 PM Interpretation: Performing Lab:[facility], [address] [place] [phone] Notes/Report: White Blood Count 6.0 4.8-10.8 X10*3/uL [...] Microscopic Reviewed date:11/08/2024 06:04:55 PM Interpretation: Performing Lab:[facility], [address] [place] [phone] Notes/Report: Color Urine Yellow Appearance Urine Clear PH 6.0 5.0-9.0 Glucose Urine UA Negative Negative mg/dL Urine Blood Negative Negative Specific [place] - Urine 1.015 1.005-1.025 Urine Protein Negative Neg-Trace mg/dL Urine Ketones Negative Negative mg/dL Nitrite Urine Negative Negative Leukocyte Esterase Urine Negative Negative RBC Urine 0-2 0-2 /HPF WBC Urine 0-5 0-5 /HPF Squamous Epithelial Cell Urine 0-2 0-2 /HPF Bacteria Urine None Seen None Seen Hyaline Casts Urine 0-2 0-2 /LPF Comprehensive [place]. Panel Fa st Reviewed date:11/08/2024 02:27:28 PM Interpretation: Performing Lab:[facility], [address] [place] [phone] Notes/Report: Sodium 139 135-145 mmol/L Potassium 4.8 [...] Amylase Reviewed date:11/08/2024 02:26:23 PM Interpretation: Performing Lab:[address] [phone] Notes/Report: Amylase 99 28-100 U/L Lipase Reviewed date:11/08/2024 02:26:31 PM Interpretation: Performing Lab:[address] [phone] Notes/Report: Lipase 23 8-78 U/L Urine Culture Reviewed date:11/09/2024 12:24:46 PM Interpretation: Performing Lab:[address] [phone] Notes/Report: Urine Culture No growth. Reason For Referral No Information Medications Medication SIG (Take, Route, Frequency, Duration) Notes Start Date End Date Status Vitamin D 25 MCG (1000 UT) 1 tablet Orally Once a day for 30 day(s) Active Avodart 0.5 MG 1 capsule Orally Onc e a day Active Tamsulosin HCl 0.4 MG 1 capsule Orally t wice a day for 90 days 01/04/2025 Active Irbesartan 75 MG 2 tablets Orally Onc e a day Active Aspirin 81 81 MG 1 tablet Orally Once a day for 30 day(s) Active KlonoPIN 1 MG 1 tablet Orally Once a day Active traZODone HCl 50 MG 1 tablet at bedtime as needed Orally Once a day for 30 days 11/08/2024 Active Atorvastatin Calcium 20 MG 1 tablet Orally Once a day Active Atenolol 25 MG 1 tablet Orally Once a day Active Warfarin Sodium 5 MG 1 tablet Orally Onc e a day Active Tamsulosin HCl 0.4 MG 2 caps Orally Once a day Active Flomax 0.4 MG 1 capsule Orally Onc e a day Not-Taking Social History Tobacco Use: Social History Observation [...] Status W/U Status Risk Notes Problem Neutropenia (463879299) Neutropenia (D70.9) Active confirmed Problem 22101097 Prostatism (N40.0) Active confirmed Problem Insomnia (969457135) Insomnia (G47.00) Active confirmed Problem 21465133 Essential hypertension (I10) Active confirmed Problem 26340125 Hypercholesterem ia (E78.00) Active confirmed Problem 1029029245421 S/P TAVR (transcatheter aortic valve replacement) (Z95.2) Active confirmed Problem 438784096 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 Vital Signs Blood pressure diastolic 50 mm Hg 01/04/2025 rufus ght is down 4 pounds since 11-08-24 Height 68 in 01/04/2025 weight is down 4 pounds since 11-08-24 Blood pressure systolic 98 mm Hg 01/04/2025 weig ht is down 4 pounds since 11-08-24 Weight 154 lbs 01/04/2025 weight is down 4 pounds since 11-08-24 BMI 23.41 kg/m2 01/04/2025 weight is down 4 pounds since 11-08-24 Encounters Encounter Location Date Provider Diagnosis Kody Morgan MD [address] [place] [id number] 08/02/2024 Kody Morgan Essential hypertensi on I10 ; 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 ; Indolent non-Hodgkins lymphoma C85.80 ; Hypercholesteremia E78.00 and S/P TAVR (transcatheter aortic valve replacement) Z95.2 Kody Morgan MD [address] [place] [id number] 11/08/2024 Kody Morgan Essential hypertensi on I10 ; Indolent non-Hodgkins lymphoma C85.80 ; S/P TAVR (transcatheter aortic valve replacement) Z95.2 ; Weight loss R63.4 ; Neutropenia D70.9 and Insomnia G47.00 Kody Morgan MD [address] [place] [id number] 01/04/2025 Kody Morgan Essential hypertensi on I10 ; Weight loss R63.4 ; Neutropenia D70.9 and 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 Kody Morgan MD [address] [place] [id number] 11/08/2024 Kody Morgan MD [address] [place] [address] Drive [address] [place] [id number] 01/06/2025 Kody Morgan 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 Kody Morgan MD [address] [place] [address] Drive [address] [place] [id number] 08/13/2024 Kody Morgan Assessments Encounter Date Diagnosis (ICD Code) Assessment Notes Treatment Notes Treatment Clinical Notes Section Notes 08/02/2024 Essential hypertension (ICD-10 - I10) doing well, will cntinue current regiment 08/02/2024 Prostatism (ICD-10 - N40.0) taking meds. seen by urology and had a reisdual of 200 11/08/2024 Essential hypertension (ICD-10 - I10) doing well on meds. will continue current regiment 11/08/2024 Indolent non-Hodgkin s lymphoma (ICD-10 - C85.80) 01/04/2025 Essential hypertension (ICD-10 - I10) is running a little low and if stays low to stop atenolol 01/06/2025 Prostatism (ICD-10 - N40.0) 08/02/2024 Indolent non-Hodgkin s lymphoma (ICD-10 - C85.80) starting to get treatment 11/08/2024 S/P TAVR (transcatheter aortic valve replacement) (ICD-10 - Z95.2) on meds, will continue current regiment 01/04/2025 Weight loss (ICD-10 - R63.4) He is still hungry. he doesn't eat deserts any longer as his is on a diet. i suspect that is part of the problem but have not found anything on an etire exam 08/02/2024 Hypercholesteremia (ICD-10 - E78.00) is followed at [facility] when he get infusions, will continue current regiment and will continue to monitor 11/08/2024 Weight loss (ICD-10 - R63.4) is afraid to eat due to the constipation. 01/04/2025 Neutropenia (ICD-10 - D70.9) is stable, will cntinue to monitor 08/02/2024 S/P TAVR (transcatheter aortic valve replacement) (ICD-10 - Z95.2) is followed in [place] 11/08/2024 Neutropenia (ICD-10 - D70.9) will continue to monitor 01/04/2025 Prostatism (ICD-10 - N40.0) need notes from dr dexter 11/08/2024 Insomnia (ICD-10 - G47.00) will continue current regiment 01/04/2025 Other patient verbalized understanding of medicatin and directions for use Plan Of Treatment Next Appt Details Provider Name:Kody marier, 02/11/2025 02:00:00 PM, [address] [place] [address], [address], [phone], Provider Name:Kody marier, 05/05/2025 07:15:00 AM, [address] [place] [address], [address], [phone], Provider Name:Kody Jama ier, 05/12/2025 10:00:00 AM, [address] [place] [address], [address], [phone], Provider Name:Kody Jama ier, 11/04/2025 07:45:00 AM, [address] [place] [address], [address], [phone], Provider Name:Kody marier, 11/11/2025 11:00:00 AM, [address] [place] [address], [address], [phone], Insurance Providers Payer Name Payer Address Payer Phone Subscriber Number Group Number Insured Name Patient Relationship to Insured Coverage Start Date Coverage End Date [facility] [address] [place] [phone] [id number] Joseph Talavera Self - patient is the insured Medical (General) History Medical History History ICD Code could not have colonoscopy due to valve and had FIT 2022 that was negative
--- OUTSIDE RECORDS SUMMARY | 2025-01-12 09:38 | XMS_ITS ---
Author Organization Kody Morgan MD Address [address] [place] [id number] Care Team Providers Care Board Stacker Name Role Phone Kody Morgan Primary Care Provider REASON FOR VISIT RF Tamsulosin Medications Medication SIG (Take, Route, Fr equency, Duration) Notes Start Date End Date Status Tamsulosin HCl 0.4 MG 1 capsule Orally t wice a day for 90 days 01/04/2025 Active Encounters Encounter Location Date Provider Diagnosis Kody Morgan MD [address] [place] [address] [place] [id number] 01/06/2025 Kody Morgan 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 Assessments Encounter Date Diagnosis (ICD Code) Assessment Notes Treatment Notes Treatment Clinical Notes Section Notes 01/06/2025 Prostatism (ICD-10 - N40.0) Plan Of Treatment Medication Medication Name Sig Start Date Stop Date Notes Tamsulosin HCl 0.4 MG 1 capsule Orally t wice a day for 90 days 01/04/2025 Next Appt Details Provider Name:Kody mack, 02/11/2025 02:00:00 PM, [address] [place] [address], [address], [phone], Provider Name:Kody mack, 05/05/2025 07:15:00 AM, [address] [place] [address], [address], [phone], Provider Name:Kody mack, 05/12/2025 10:00:00 AM, [address], [address], [place], [phone], Provider Name:Kody Jama frederick, 11/04/2025 07:45:00 AM, [address], [address], [place], [phone], Provider Name:Kody Jama frederick, 11/11/2025 11:00:00 AM, [address], [address], [place], [phone], Progress Notes * Joseph TALAVERADOB:[birth year] (74 yo M)Acc No.[id number]:01/06/2025 Patient:?Joseph TALAVERA :1950???Age:74 Y???Sex:Male Address:[address] [place], [place] [address], [address] * Refills? Refill Tamsulosin HCl Capsule, 0.4 MG, Orally, 180 Capsule, 1 capsule, twice a day, 90 days, Refills=3 * true * Date:? Generated for Tacos clemons/Brandi/eTransmitting on:?01/12/2025 09:38 AM EDT
--- OUTSIDE RECORDS SUMMARY | 2025-01-12 09:38 | XMS_ITS ---
Author Organization Kody Morgan MD Address [address] [place], [place] [phone] Care Team Providers Care Fretted String Instrument Repairer Name Role Phone Kody Morgan Primary Care Provider Allergies No Known Allergies REASON FOR VISIT 1 month Medications Medication SIG (Take, Route, Frequency, Duration) Notes Start Date End Date Status Avodart 0.5 MG 1 capsule Orally Onc e a day Active Irbesartan 75 MG 2 tablets Orally Onc e a day Active Atenolol 25 MG 1 tablet Orally Once a day Active Warfarin Sodium 5 MG 1 tablet Orally Onc e a day Active Flomax 0.4 MG 1 [...] 1 tablet Orally Once a day Active Tamsulosin HCl 0.4 MG 1 capsule Orally t wice a day for 90 days 01/04/2025 Active Vitamin D 25 MCG (1000 UT) 1 tablet Orally Once a day for 30 day(s) Active Tamsulosin HCl 0.4 MG 2 caps Orally Once a day Active Vital Signs Blood pressure systolic 98 mm Hg 01/05/20 25 Blood pressure diastolic 50 mm Hg 025 Height 68 in 01/04/2025 Weight 154 lbs 01/04/2025 BMI 23.41 kg/m2 01/04/2025 weight is down 4 pounds formerly [facility] 11-08-24 Encounters Encounter Location Date Provider Diagnosis Kody Morgan MD [address] [place] [id number] 01/04/2025 Kody Morgan Essential hypertension I10 ; Weight loss R63.4 ; Neutropenia D70.9 and 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 Assessments Encounter Date Diagnosis (ICD Code) Assessment Notes Treatment Notes Treatment Clinical Notes Section Notes 01/04/2025 Essential hypertension (ICD-10 - I10) is running a little low and if stays low to stop atenolol 01/04/2025 Weight loss (ICD-10 - R63.4) He is still hungry. he doesn't eat deserts any longer as his is on a diet. i suspect that is part of the problem but have not found anything on an etire exam 01/04/2025 Neutropenia (ICD-10 - D70.9) is stable, will cntinue to monitor 01/04/2025 Prostatism (ICD-10 - N40.0) need notes from dr dexter 01/04/2025 Other patient verbalized understanding of medicatin and directions for use Plan Of Treatment Medication Medication Name Sig Start Date Stop Date Notes Avodart 0.5 MG 1 capsule Orally Once a day Irbesartan 75 MG 2 tablets Orally Once a day Tamsulosin HCl 0.4 MG 1 capsule Orally t wice a day for 90 days 01/04/2025 Treatment Notes Assessment Notes Essential hypertension is running a hugo le low and if stays low to stop atenolol Weight loss He is still hungry. he doesn't eat deserts any longer as his is on a diet. i suspect that is part of the problem but have not found anything on an etire exam Neutropenia is stable, will cnti nue to monitor Prostatism need notes from dr nelly curry Other patient verbalized u nderstanding of medicatin and directions for use Next Appt Details Follow Up: 6 Weeks, Reason: Provider Name:Kody mack, 02/11/2025 02:00:00 PM, [address] [place] [address], [address] [place] [address], [phone], Provider Name:Kdoy mack, 05/05/2025 07:15:00 AM, [address] [place] [address], [place] [address], [place], [place], [phone], Provider Name:Kody Jama ier, 05/12/2025 10:00:00 AM, [address], [address], [place], [phone], Provider Name:Kody Jama ier, 11/04/2025 07:45:00 AM, [address], [address], [place], [phone], Provider Name:Kody Jama ier, 11/11/2025 11:00:00 AM, [address], [address], [place], [phone], Progress Notes * Joseph TALAVERADOB:[birth year] (74 yo M)Acc No.[id number]:01/04/2025 Progress Notes Patient:?Joseph TALAVERA Provider:?Kody Morgan MD :1950???Age:74 Y???Sex:Male Yuan e:01/04/2025 Address:[address] [place] [address] [facility] [id number] Subjective: * Chief Complaints: * ???1 month * HPI: ???Symptom(s):?patient is a 74 yo male here for one month follow up visit/ still losing weight. saw 2 glass cut off tender and they both thought pet scan was reassuring./ took linzess and dehydrated him. still on miralax/ is hungry. doesn't eat as much as is worried about constipation/ eating well. used to have deserts at night but doesn't due to his is on diet/ residual is usuallly 200. for years. is up at night every 2 hours. never frequency during the day. is taking flomax 2 tabs. * ROS:?General/Constitutional:?Denies?Chills.?Denies?Fatigue.?Denies?Fever.?Denies?Headache.?ENT:?Denies?Sore throat.?Respiratory:?Denies?Cough.?Denies?Shortness of breath at rest.?Gastrointestinal:?Admits?Constipation.?Denies?Diarrhea.?Denies?Heartburn.?Denies?Nausea.? * Medical History:? * Surgical History:? * Hospitalization/Major Diagno stic Procedure:? * Medications:?TakingTamsulosi n HCl 0.4 MG Capsule 2 caps Orally Once a day Vitamin D 25 MCG (1000 UT) Tablet 1 tablet Orally Once a day KlonoPIN 1 MG Tablet 1 tablet Orally Once a day Aspirin 81 81 MG Tablet Delayed Release 1 tablet Orally Once a day Atorvastatin Calcium 20 MG Tablet 1 tablet Orally Once a day traZODone HCl 50 MG Tablet 1 tablet at bedtime as needed Orally Once a day Atenolol 25 MG Tablet 1 tablet Orally Once a day Irbesartan 75 MG Tablet 2 tablets Orally Once a day Avodart 0.5 MG Capsule 1 capsule Orally Once a day Warfarin Sodium 5 MG Tablet 1 tablet Orally Once a day Taking Tamsulosin HCl 0.4 MG Capsule 2 caps Orally Once a day Taking Vitamin D 25 MCG (1000 UT) Tablet 1 tablet Orally Once a day Taking KlonoPIN 1 MG Tablet 1 tablet Orally Once a day Taking Aspirin 81 81 MG Tablet Delayed Release 1 tablet Orally Once a day Taking Atorvastatin Calcium 20 MG Tablet 1 tablet Orally Once a day Taking traZODone HCl 50 MG Tablet 1 tablet at bedtime as needed Orally Once a day Taking Atenolol 25 MG Tablet 1 tablet Orally Once a day Taking Irbesartan 75 MG Tablet 2 tablets Orally Once a day Taking Avodart 0.5 MG Capsule 1 capsule Orally Once a day Taking Warfarin Sodium 5 MG Tablet 1 tablet Orally Once a day Not-Taking/PRNFlomax 0.4 MG Capsule 1 capsule Orally Once a day Medication List reviewed and reconciled with the patientNot-Taking/PRN Flomax 0.4 MG Capsule 1 capsule Orally Once a day Medication List reviewed and reconciled with the patient * Allergies:?N.K.D.A.yes[Aller gies Verified] Objective: * Vitals:?Ht: 68, Wt: 154, BMI :23.41, BP:98/50, Wt-k.85. weight is down 4 pounds since 3-10-25. * Examination: ???General Examination: ?GENERAL APPEARANCE:?alert, well hydrated, in no distress, well developed, well nourished, male.?HEAD:?normocephalic.?ORAL CAVITY:?normal.?THROAT:?no erythema, no exudate, pharynx normal.?NECK/THYROID:?no lymphadenopathy, no carotid bruit.?LYMPH NODES:?no cervical adenopathy, no palpable adenopathy.?SKIN:?good turgor.?HEART:?regular rate and rhythm, no murmurs, rubs, gallops.?LUNGS:?no wheezes, rales, rhonchi, good air movement, clear to auscultation bilaterally.?ABDOMEN:?no hepatosplenomegaly, no masses palpable.? Assessment: * Assessment: 1.?Essential hypertension - I10 (Primary)???2.?Weight loss - R63.4???3.?Neutropenia - D70.9???4.?Prostatism - N40.0??? Plan: * Treatment: 2.?Weight loss? Notes: He is still hungry. he doesn't eat deserts any longer as his is on a diet. i suspect that is part of the problem but have not found anything on an etire exam?? 3.?Neutropenia? Notes: is stable, will cntinue to monitor?? 4.?Prostatism? Start Tamsulosin HCl Capsule, 0.4 MG, 1 capsule, Orally, twice a day, 90 days, 180 Capsule, Refills 3.?? Notes: need notes from dr dexter?? 5.?Others? Notes: patient verbalized understanding of medicatin and directions for use?? * Procedure Codes:? * Follow Up:?6 Weeks * * Sign off status: Completed true * Provider:?Kody Morgan MD Date:?0 01/04/2025 Generated for Tacos clemons/Brandi/eTransmitting on:?01/12/2025 09:38 AM EDT History and Physical Notes * HPI (History of Present Illness) Category Sub-Category Detail Notes Category Not es Symptom(s) patient is a 74 yo male here for one month follow up visit/ still losing weight. saw 2 glass cut off tender and they both thought pet scan was reassuring./ took linzess and dehydrated him. still on miralax/ is hungry. doesn't eat as much as is worried about constipation/ eating well. used to have deserts at night but doesn't due to his is on diet/ residual is usuallly 200. for years. is up at night every 2 hours. never frequency during the day. is taking flomax 2 tabs. Examination Category Sub-Category Detail Notes Category Not es General Examination GENERAL APPEARANCE: alert, w ell hydrated, in no distress, well developed, well nourished, male HEAD: normocephalic THROAT: no erythema, no exud ate, pharynx normal NECK/THYROID: no lymphadenopathy, no carotid bruit HEART: regular rate and rhy thm, no murmurs, rubs, gallops LUNGS: no wheezes, rales, r honchi, good air movement, clear to auscultation bilaterally ABDOMEN: no hepatosplenomegal y, no masses palpable SKIN: good turgor LYMPH NODES: no cervical adenopat hy, no palpable adenopathy ORAL CAVITY: normal
--- OUTSIDE RECORDS SUMMARY | 2025-01-12 09:38 | XMS_ITS | Encounter Summary ---
Author Organization [facility] Address [address] [place] [address] Care Team Providers Care Excelsior Cutter Name Role Phone Renny Lieberman MD Unavailable [phone] Pcp, No Primary Care Provider Unavailabl e Encounter Details Date Type Department Care Team (Late st Contact Info) Description 11/11/2024 Telephone [facility] [address] [facility] [address] [place] [address] Jared Abdalla Social History Tobacco [...] EDT Appointment [facility] Department of Dermatology [place] [address] [facility] [address] [place] [address] Karolina Price PA-C [address] [facility] [address] [place] [address] documented as of this encounter Visit Diagnoses Not on filedocumented in this encounter Care Teams Excelsior Cutter Relationship Specialty Start Date End Date Pcp, No PCP - General General Medicine 01/07/24 Renny Lieberman MD [address] [facility] [address] [place] [address] Primary Vegetable I Farmworker Cardiovascular Disease 12/13/20 documented as of this encounter
--- OUTSIDE RECORDS SUMMARY | 2025-01-12 09:38 | XMS_ITS | Encounter Summary ---
Author Organization [facility] Address [address] [place] [address] Care Team Providers Care Motor Inspection Mechanic Name Role Phone Renny Lieberman MD Unavailable [phone] Joseph Talavera MD Primary Care Provider [phone] Renny Lieberman MD Primary Care Provider [phone] Pcp, No Primary Care Provider Unavailabl e Encounter Details Date Type Department Care Team (Late st Contact Info) Description 02/27/2021 Scanned Document [facility] at [address] [phone] Estiven Larson MD [address] [place] [address] Social History Tobacco Use Types Packs/Day Years [...] EDT Appointment [facility] Department of Dermatology [place] [address] [place] [phone] Karolina Price PA-C [address] [place], [place] [phone] documented as of this encounter Visit Diagnoses Not on filedocumented in this encounter Care Teams Motor Inspection Mechanic Relationship Specialty Start Date End Date Joseph Talavera MD [address] [place] [address] PCP - General Internal Medicine 12/25/20 04/17/23 Renny Lieberman MD [address] [place] [address] PCP - General Cardiovascular Disease 04/18/23 01/06/24 Pcp, No PCP - General General Medicine 01/07/24 Renny Lieberman MD [address] [place] [address] Primary Pharmacy Benefit Manager Cardiovascular Disease 12/13/20 documented as of this encounter
--- OUTSIDE RECORDS SUMMARY | 2025-01-12 09:38 | XMS_ITS | Encounter Summary ---
Author Organization [facility] Address [address] [place] [address] Care Team Providers Care District Claims Manager Name Role Phone Renny Lieberman MD Unavailable [phone] Jospeh Talavera MD Primary Care Provider [phone] Renny Lieberman MD Primary Care Provider [phone] Pcp, No Primary Care Provider Unavailabl e Encounter Details Date Type Department Care Team (Late st Contact Info) Description 09/17/2022 Scanned Document [facility] [address] [place] [phone] Renny Lieberman MD [address] [place] [address] Social History Tobacco Use Types Packs/Day Years [...] Appointment [facility] Department of Dermatology [place] [address] [facility] [place] [place] [phone] Karolina Price PA-C [address] [place], [place] [address] documented as of this encounter Visit Diagnoses Not on filedocumented in this encounter Care Teams District Claims Manager Relationship Specialty Start Date End Date Joseph Talavera MD [address] [place] [address] PCP - General Internal Medicine 12/25/20 04/17/23 Renny Lieberman MD [address] [place] [address] PCP - General Cardiovascular Disease 04/18/23 01/06/24 Pcp, No PCP - General General Medicine 01/07/24 Renny Lieberman MD [address] [place] [address] Primary Molder Fitting Cardiovascular Disease 12/13/20 documented as of this encounter
--- OUTSIDE RECORDS SUMMARY | 2025-01-12 09:38 | XMS_ITS | Encounter Summary ---
Author Organization [facility] Address [address] [place] [address] Care Team Providers Care What Job Titles Mean Name Role Phone Renny Lieberman MD Unavailable [phone] Pcp, No Primary Care Provider Unavailabl e Encounter Details Date Type Department Care Team (Late st Contact Info) Description 01/30/2024 Scanned Document [facility] Heart & Vascular [place] 100 [facility], [address] [place] [address] Renny Lieberman MD 111 [facility] 8 [place], [place] [address] Social History Tobacco Use Types Packs/Day Years [...] EDT Appointment [facility] Department of Dermatology [place] [address] [place] [address] Karolina Price PA-C [address] [place] [address] documented as of this encounter Visit Diagnoses Not on filedocumented in this encounter Care Teams What Job Titles Mean Relationship Specialty Start Date End Date Pcp, No PCP - General General Medicine 01/07/24 Renny Lieberman MD [address] [address] Primary Medicaid Business Analyst Cardiovascular Disease 12/13/20 documented as of this encounter
--- OUTSIDE RECORDS SUMMARY | 2025-01-12 09:39 | XMS_ITS | Encounter Summary ---
Author Organization [facility] Address [address] [place] [address] Care Team Providers Care Concrete Pump Operator Helper Name Role Phone Renny Lieberman MD Unavailable [phone] Pcp, No Primary Care Provider Unavailabl e Encounter Details Date Type Department Care Team (Late Contact Info) Description 12/17/2024 Telephone [facility] [address] [facility] [address] [place] [address] Jared Abdalla Social History Tobacco [...] * Telephone Encounter - Jared Abdalla - 12/17/2024 4:26 PM EDT LVM Colon recall DH OCS documented in this encounter Plan of Treatment Upcoming Encounters Date Type Department Care Team (Late st Contact Info) Description 03/18/2025 11:30 AM EDT Appointment [facility] Department of Dermatology [place] [address] [facility] [address] [place] [address] Karolina Price PA-C [address] [place] [address] documented as of this encounter Visit Diagnoses Not on filedocumented in this encounter Care Teams Concrete Pump Operator Helper Relationship Specialty Start Date End Date Pcp, No PCP - General General Medicine 01/07/24 Renny Lieberman MD [address] [place], [place] [address] Primary Rn Admit Cardiovascular Disease 12/13/20 documented as of this encounter
[2025-01-12 10:45] LABS: Prothrombin Time Whole Bld POC 49.4 sec (11.1-13.5); ~PT, ~INR - Anti Coag Clinic 4.1 (0.9-1.1)
== END 2025-01-12 09:36 | disposition home or self-care (01) ==
LOC: HO.ACS 09:10
PROVIDERS: PCP Internal Medicine Hematology; Visit Provider Internal Medicine Medical Oncology
DX: Z79.01 Long term (current) use of anticoagulants (principal)

== ENCOUNTER 2025-01-12 09:10 | Outpatient (REF) | payer OTHER, SELFPAY ==
--- OUTSIDE RECORDS SUMMARY | 2025-01-12 10:08 | XMS_ITS | Encounter Summary ---
Author Organization [facility] Address [address] [place] [address] Care Team Providers Care Office Automation Technician Name Role Phone Renny Lieberman MD Unavailable [phone] Pcp, No Primary Care Provider Unavailabl e Encounter Details Date Type Department Care Team (Late st Contact Info) Description 01/30/2024 Scanned Document [facility] Heart & Vascular [place] 100 [facility], [address] [place] [address] Renny Lieberman MD 111 [facility] 8 [place], [place] [address] Social History Tobacco Use Types Packs/Day Years [...] EDT Appointment [facility] Department of Dermatology [place] [address] [place] [address] Karolina Price PA-C [address] [place] [address] documented as of this encounter Visit Diagnoses Not on filedocumented in this encounter Care Teams Office Automation Technician Relationship Specialty Start Date End Date Pcp, No PCP - General General Medicine 01/07/24 Renny Lieberman MD [address] [address] Primary Motor Power Connector Cardiovascular Disease 12/13/20 documented as of this encounter
--- OUTSIDE RECORDS SUMMARY | 2025-01-12 10:08 | XMS_ITS | Encounter Summary ---
Author Organization [facility] Address [address] [place] [address] Care Team Providers Care Wildlife Biostation Research Ecologist Name Role Phone Renny Lieberman MD Unavailable [phone] Pcp, No Primary Care Provider Unavailabl e Encounter Details Date Type Department Care Team (Late st Contact Info) Description 12/06/[address] [facility] [address] [address] Santosh Roa [address] [facility] [address] [place], [place] [address] Social History Tobacco Use Types Packs/Day Years [...] SENT: This is from Dr. Ferrer at [facility] to let you know you are due for follow-up care. Please call us at . Reply Stop to opt out. documented in this encounter Plan of Treatment Upcoming Encounters Date Type Department Care Team (Late st Contact Info) Description 03/18/2025 11:30 AM EDT Appointment [facility] Department of Dermatology [place] 1[address] [facility] [address] [place] [address] Karolina Price PA-C 1111 [facility] 202 [place], [place] [address] documented as of this encounter Visit Diagnoses Not on filedocumented in this encounter Care Teams Wildlife Biostation Research Ecologist Relationship Specialty Start Date End Date Pcp, No PCP - General General Medicine 01/07/24 Renny Lieberman MD 111 [facility] 8 [place] [address] Primary Internet Project Manager Cardiovascular Disease 12/13/20 documented as of this encounter
--- OUTSIDE RECORDS SUMMARY | 2025-01-12 10:08 | XMS_ITS | Encounter Summary ---
Author Organization [facility] Address [address] [place] [address] Care Team Providers Care Reliner Name Role Phone Renny Lieberman MD Unavailable [phone] Renny Lieberman MD Primary Care Provider [phone] Pcp, No Primary Care Provider Unavailabl e Encounter Details Date Type Department Care Team (Late Contact Info) Description 12/31/2023 Scanned Document [facility] Heart & Vascular [place] [address] [place] [address] Renny Lieberman MD [address] [place] [address] Social History Tobacco Use Types [...] EDT Appointment [facility] Department of Dermatology [place] 1[address] [facility] [address] [place] [address] Karolina Price PA-C [address] [facility] 202 [place] [address] documented as of this encounter Visit Diagnoses Not on filedocumented in this encounter Care Teams Reliner Relationship Specialty Start Date End Date Renny Lieberman MD 111 [facility] 8 [place] [address] PCP - General Cardiovascular Disease 04/18/23 01/06/24 Pcp, No PCP - General General Medicine 01/07/24 Renny Lieberman MD 111 [facility] 8 [place] [address] Primary Home Restoration Service Cleaner Cardiovascular Disease 12/13/20 documented as of this encounter
--- OUTSIDE RECORDS SUMMARY | 2025-01-12 10:08 | XMS_ITS | Clinical Summary ---
Author Organization [facility] Address [address] [address] Care Team Providers Care Market Development Specialist Name Role Phone Pcp, No MD Primary [...] mouth daily as needed. 02/23/2021 Active omega 7-oev-fcz-fish oil (Fish OiL) 1,000 mg (120 mg-180 [...] Hemoglobin Negative Negative 09/25/2023 2:11 PM EST [facility] Comment:This is a screening test for colorectal cancer or gastrointestinal bleed. This test has 97% specificity for detection of lower gastrointestinal bleeding in colorectal cancer. This test will not detect upper gastrointestinal bleeding. Stool Anal structure / Unknown Non-blood Collection / Unknown 09/25/2023 11:31 AM EST 09/25/2023 11:31 AM EST Shekhar Ledesma MD LAB BODY FLUIDS AND STOOLS SHRUTI ERAZO Final Result [facility] [address] [place] [address], [place] [phone] from Last 3 Months or Most Recently Relevant to Health Maintenance Insurance [employer] Care Teams Market Development Specialist Relationship Specialty Start Date End Date Pcp, MD Heather [address] [place] [address] PCP - General Internal Medicine 09/15/23
--- OUTSIDE RECORDS SUMMARY | 2025-01-12 10:08 | XMS_ITS | Encounter Summary ---
Author Organization [facility] Address [address] [place] [address] Care Team Providers Care Commercial Horticulture Instructor Name Role Phone Renny Lieberman MD Unavailable [phone] Pcp, No Primary Care Provider Unavailabl e Encounter Details Date Type Department Care Team (Late st Contact Info) Description 11/11/2024 Telephone [facility] 85 [facility] [address] [place] [address] Jared Abdalla Social History Tobacco [...] EDT Appointment [facility] Department of Dermatology [place] [address] [facility] [address] [place] [address] Karolina Price PA-C [address] [facility] 202 [place] [address] documented as of this encounter Visit Diagnoses Not on filedocumented in this encounter Care Teams Commercial Horticulture Instructor Relationship Specialty Start Date End Date Pcp, No PCP - General General Medicine 01/07/24 Renny Lieberman MD [address] [place] [facility] 8 [place] [address] Primary Contracting Specialist Cardiovascular Disease 12/13/20 documented as of this encounter
--- OUTSIDE RECORDS SUMMARY | 2025-01-12 10:08 | XMS_ITS | Encounter Summary ---
Author Organization [facility] Address [address] [place] [address] Care Team Providers Care Mill Platform Supervisor Name Role Phone Renny Lieberman MD Unavailable [phone] Joseph Talavera MD Primary Care Provider [phone] Renny Lieberman MD Primary Care Provider [phone] Pcp, No Primary Care Provider Unavailabl e Encounter Details Date Type Department Care Team (Late Contact Info) Description 02/16/2021 Scanned Document [facility] Heart & Vascular [place] 100 [facility], [address] [place] [address] Renny Lieberman MD 111 [facility] 8 [place] [address] Social History Tobacco Use Types [...] EDT Appointment [facility] Department of Dermatology [place] [address] [facility] [address] [place] [address] Karolina Price PA-C [facility] [facility] [address] [place], [place] [address] documented as of this encounter Visit Diagnoses Not on filedocumented in this encounter Care Teams Mill Platform Supervisor Relationship Specialty Start Date End Date Joseph Talavera MD [address] [place] [address] PCP - General Internal Medicine 12/25/20 04/17/23 Renny Lieberman MD [address] [place] [address] PCP - General Cardiovascular Disease 04/18/23 01/06/24 Pcp, No PCP - General General Medicine 01/07/24 Renny Lieberman MD [address] [place] [address] Primary Garnetter Cardiovascular Disease 12/13/20 documented as of this encounter
--- OUTSIDE RECORDS SUMMARY | 2025-01-12 10:08 | XMS_ITS | Encounter Summary ---
Author Organization [facility] Address 100 [place] [address] Care Team Providers Care Shingle Sawyer Name Role Phone Renny Lieberman MD Unavailable [phone] Joseph Talavera MD Primary Care Provider [phone] Renny Lieberman MD Primary Care Provider [phone] Pcp, No Primary Care Provider Unavailabl e Encounter Details Date Type Department Care Team (Late st Contact Info) Description 02/27/2021 Scanned Document [facility] Cancer [place] [facility] at [address] [address] Estiven Larson MD [address] [place] [address] Social History Tobacco Use Types Packs/Day Years [...] EDT Appointment [facility] Department of Dermatology [place] [address] [facility] [place] [address] Karolina Price PA-C [address] [place], [place] [address] documented as of this encounter Visit Diagnoses Not on filedocumented in this encounter Care Teams Shingle Sawyer Relationship Specialty Start Date End Date Joseph Talavera MD [address] [place] [address] PCP - General Internal Medicine 12/25/20 04/17/23 Renny Lieberman MD 4 [place] [address] PCP - General Cardiovascular Disease 04/18/23 01/06/24 Pcp, No PCP - General General Medicine 01/07/24 Renny Lieberman MD [address] [place] [address] Primary Sports Medicine Physician Cardiovascular Disease 12/13/20 documented as of this encounter
--- OUTSIDE RECORDS SUMMARY | 2025-01-12 10:08 | XMS_ITS | Encounter Summary ---
Author Organization [facility] Address [address] [place] [address] Care Team Providers Care Rental Coordinator Name Role Phone Renny Lieberman MD Unavailable [phone] Pcp, No Primary Care Provider Unavailabl e Reason for Referral * Specialty Diagnoses / Procedures Referred By Contac t Referred To Contact Anticoagulation [facility] [address] [address] Referral ID Status Reason Start Date Expiration Date Visits Re quested Visits Authorized Comments This order was created through External Result Entry Encounter Details Date Type Department Care Team ([facility] Contact Info) Description 01/12/2025 Orders Only [facility] Heart & Vascular [place] [address] [facility] [address] [place] [address] ProviderFaustino MD 193 [place], [place] [address] Social History Tobacco Use Types Packs/Day Years [...] EDT Appointment [facility] Department of Dermatology [place] [address] [place] [address] Karolina Price PA-C [address] [place] [address] documented as of this encounter Procedures Procedure Name Priority Date/Time Associated Diagnosis Comments AMB REFERRAL TO ANTICOAGULATION MONITORING Routine 12/30/2024 8:53 AM EDT documented in this encounter Results * Amb Referral to Anticoagulation Monitori (12/30/2024 8:53 AM EDT) us External Provider OUTPATIENT REFERRAL ORDERAB LES Final Result documented in this encounter Visit Diagnoses Not on filedocumented in this encounter Care Teams Rental Coordinator Relationship Specialty Start Date End Date Pcp, No PCP - General General Medicine 01/07/24 Renny Lieberman MD 111 [facility] 8 [place] [address] Primary Beauty Shop Manager Cardiovascular Disease 12/13/20 documented as of this encounter
--- OUTSIDE RECORDS SUMMARY | 2025-01-12 10:09 | XMS_ITS | Clinical Summary ---
Author Organization [facility] Address [address] [place] [address] Care Team Providers Care Conche Operator Name Role Phone Renny Lieberman MD Unavailable [phone] Pcp, No Primary Care Provider Unavailabl [...] mean gradient 40s. S/p TAVR [place] 20[place] Diastolic dysfunction 12/13/2020 Overview (12/13/2020): Grade 2 on echo 2014 Other hyperlipidemia 12/13/2020 Encounters Date Type Department Care Team Description 01/12/2025 Orders Only [facility] Heart & Vascular [place] [address] [place] [address] [place] [address] Provider, MD Faustino 12/17/[address] [place] [address] Jared Abdalla 12/06/2024 Telephone [facility] 85 [facility] 3RD [place] [address] Santosh Roa 11/11/2024 Telephone [facility] 85 [facility] [address] [place] [address] Jared Abdalla from Last 3 [...] EDT Appointment [facility] Department of Dermatology [address] [address] Kraolina Price PA-C [address] [address] Health Maintenance Due Date Last Done Comments [...] Final Result from Last 3 Months Insurance [facility] MEDICARE PART A [facility] [place] [id number] MEDICARE PART A [facility] Care Teams Conche Operator Relationship Specialty Start Date End Date Pcp, No PCP - General General Medicine 01/07/24 Renny Lieberman MD [address] [place] [address] 8 [place] [address] Primary Religion Professor Cardiovascular Disease 12/13/20
--- OUTSIDE RECORDS SUMMARY | 2025-01-12 10:09 | XMS_ITS | Encounter Summary ---
Author Organization [facility] Address [address] [place] [address] Care Team Providers Care Manager Statistical Programming Name Role Phone Renny Lieberman MD Unavailable [phone] Joseph Talavera MD Primary Care Provider [phone] Renny Lieberman MD Primary Care Provider [phone] Pcp, No Primary Care Provider Unavailabl e Encounter Details Date Type Department Care Team (Late st Contact Info) Description 09/17/2022 Scanned Document [facility] Heart & Vascular [facility] 112 [place] [address] Renny Lieberman MD [address] [place] [address] Social History Tobacco Use Types Packs/Day Years [...] EDT Appointment [facility] Department of Dermatology [place] 1111 [facility] [place] [address] Karolina Price PA-C [address] [place], [place] [address] documented as of this encounter Visit Diagnoses Not on filedocumented in this encounter Care Teams Manager Statistical Programming Relationship Specialty Start Date End Date Joseph Talavera MD [address] [place] [address] PCP - General Internal Medicine 12/25/20 04/17/23 Renny Lieberman MD [address] [place] [address] PCP - General Cardiovascular Disease 04/18/23 01/06/24 Pcp, No PCP - General General Medicine 01/07/24 Renny Lieberman MD [address] [place] [address] Primary Title Coordinator Cardiovascular Disease 12/13/20 documented as of this encounter
--- OUTSIDE RECORDS SUMMARY | 2025-01-12 10:09 | XMS_ITS | Encounter Summary ---
Author Organization [facility] Address [address] [place] [address] Care Team Providers Care Fashion Designer Name Role Phone Renny Lieberman MD Unavailable [phone] Pcp, No Primary Care Provider Unavailabl e Encounter Details Date Type Department Care Team (Late Contact Info) Description 12/17/2024 Telephone [facility] 85 [facility] [address] [place] [address] Jared Abdalla Social History Tobacco [...] Info) Description 03/18/2025 11:30 AM EDT Appointment [facility] Department of Dermatology [place] 1[address] [facility] [address] [place] [address] Karolina Price PA-C [address] [place] [address] documented as of this encounter Visit Diagnoses Not on filedocumented in this encounter Care Teams Fashion Designer Relationship Specialty Start Date End Date Pcp, No PCP - General General Medicine 01/07/24 Renny Lieberman MD [address] [place], [place] [address] Primary Jerker Cardiovascular Disease 12/13/20 documented as of this encounter
--- OUTSIDE RECORDS SUMMARY | 2025-01-12 10:09 | XMS_ITS | Encounter Summary ---
Author Organization [facility] Address [address] [place] [address] Care Team Providers Care Trap Puller Name Role Phone Renny Lieberman MD Unavailable [phone] Joseph Talavera MD Primary Care Provider [phone] Renny Lieberman MD Primary Care Provider [phone] Pcp, No Primary Care Provider Unavailabl e Encounter Details Date Type Department Care Team (Late Contact Info) Description 02/04/2022 Scanned Document [facility] Heart & Vascular [place] 100 [facility], [address] [place] [address] Renny Lieberman MD [address] [place] [address] Social History Tobacco Use Types Packs/Day [...] Info) Description 03/18/2025 11:30 AM EDT Appointment [facility] Department of Dermatology [place] 1111 [facility] [address] [place] [address] Karolina Price PA-C [address] [facility] 202 [place] [address] documented as of this encounter Visit Diagnoses Not on filedocumented in this encounter Care Teams Trap Puller Relationship Specialty Start Date End Date Joseph Talavera MD [address] [place] [address] PCP - General Internal Medicine 12/25/20 04/17/23 Renny Lieberman MD 4 [place] [address] PCP - General Cardiovascular Disease 04/18/23 01/06/24 Pcp, No PCP - General General Medicine 01/07/24 Renny Lieberman MD 111 [place] [facility] 8 [place] [address] Primary Shell Molding Roller Blast Operator Cardiovascular Disease 12/13/20 documented as of this encounter
--- OUTSIDE RECORDS SUMMARY | 2025-01-12 10:09 | XMS_ITS | Encounter Summary ---
Author Organization [facility] Address [address] [place] [address] Care Team Providers Care Band Tier Name Role Phone Renny Lieberman MD Unavailable [phone] Joseph Talavera MD Primary Care Provider [phone] Renny Lieberman MD Primary Care Provider [phone] Pcp, No Primary Care Provider Unavailabl e Encounter Details Date Type Department Care Team (Late Contact Info) Description 01/04/2022 Scanned Document [facility] Heart & Vascular [place] 100 [facility], [address] [place] [address] Renny Lieberman MD [address] [place] [address] Social History Tobacco Use Types Packs/Day [...] Info) Description 03/18/2025 11:30 AM EDT Appointment [facility] Department of Dermatology [place] [address] [facility] [address] [place] [address] Karolina Price PA-C [address] [facility] 202 [place] [address] documented as of this encounter Visit Diagnoses Not on filedocumented in this encounter Care Teams Band Tier Relationship Specialty Start Date End Date Joseph Talavera MD [address] [place] [address] PCP - General Internal Medicine 12/25/20 04/17/23 Renny Lieberman MD [address] [place] [address] PCP - General Cardiovascular Disease 04/18/23 01/06/24 Pcp, No PCP - General General Medicine 01/07/24 Renny Lieberman MD [address] [place] [facility] 8 [place] [address] Primary Pig Farmer Cardiovascular Disease 12/13/20 documented as of this encounter
[2025-01-12 11:03] LABS: Appearance Urine Clear; Color Urine Yellow; Glucose Urine UA Negative (Negative); Leukocyte Esterase Urine Negative (Negative); Nitrite Urine Negative (Negative); UMIC TRIGGER UA YES; Urine Blood Small (1+) (Negative); Urine Ketones Negative (Negative); Urine Protein Negative (Neg-Trace)
[2025-01-12 11:26] LABS: Bacteria Urine None Seen (None Seen); Hyaline Casts Urine 0-2 /LPF (0-2); RBC Urine 0-2 /HPF (0-2); Squamous Epithelial Cell Urine 0-2 /HPF (0-2); WBC Urine 0-5 /HPF (0-5)
== END 2025-01-12 09:11 | disposition home or self-care (01) ==
LOC: HO.LAB 09:10
PROVIDERS: PCP Internal Medicine Hematology; Visit Provider Internal Medicine Medical Oncology
DX: N39.0 Urinary tract infection, site not specified (principal); Z79.01 Long term (current) use of anticoagulants
CPT/HCPCS: 81001; 81003; 85610; 87086; 99211

== ENCOUNTER 2025-01-20 08:24 | Outpatient (AMB) | payer OTHER, SELFPAY ==
--- OUTSIDE RECORDS SUMMARY | 2025-01-20 08:33 | XMS_ITS ---
Author Organization [facility] Address [address] [place] [address] [place] [id number] Care Team Providers Care Refrigerator Cabinetmaker Name Role Phone Kody Morgan Primary Care Provider [phone] REASON FOR VISIT ? 6mos appt and PE appt Encounters Encounter Location Date Provider Diagnosis Kody Morgan MD [address] [place] [address] [place] [id number] 11/08/2024 Kody Morgan Plan Of Treatment Next Appt Details Provider Name:Kody mack, 02/11/2025 02:00:00 PM, [address] [place] [address], [address], [phone], Provider Name:Kody mack, 05/05/2025 07:15:00 AM, [address] [place] [address], [address], [phone], Provider Name:Kody mack, 05/12/2025 10:00:00 AM, [address] [place] [address], [address], [phone], Provider Name:Kody mack, 11/04/2025 07:45:00 AM, [address] [place] [address], [address], [phone], Provider Name:Kody mack, 11/11/2025 11:00:00 AM, [address] [place] [address], [id number], Progress Notes * Joseph TALAVERADOB:[birth year] (73 yo M)Acc No.[id number]:11/08/2024 Patient:?Joseph TALAVERA :1950???Age:73 Y???Sex:Male Address:[address] [place] [address] [address] [facility] [place], [address] * true * Date:? Generated for Christiani deonte/Brandi/eTransmitting on:?01/20/2025 08:33 AM EDT
--- OUTSIDE RECORDS SUMMARY | 2025-01-20 08:34 | XMS_ITS | Encounter Summary ---
Author Organization [facility] Address [address] [place] [address] Care Team Providers Care Distillation Operator Name Role Phone Renny Lieberman MD Unavailable [phone] Pcp, No Primary Care Provider Unavailabl e Reason for Referral * Specialty Diagnoses / Procedures Referred By Contac t Referred To Contact Anticoagulation [facility] [address] [address] Referral ID Status Reason Start Date Expiration Date Visits Re quested Visits Authorized Comments This order was created through External Result Entry Encounter Details Date Type Department Care Team ([facility] Contact Info) Description 01/12/2025 Orders Only [facility] [place] 111 [facility] [address] [place] [address] ProviderFaustino MD [address] [place], [place] [id number] Social History Tobacco Use Types Packs/Day Years [...] EDT Appointment [facility] Department of Dermatology [place] [address] [facility] [place] [phone] Karolina Price PA-C [address] [place] [address] documented as of this encounter Procedures Procedure Name Priority Date/Time Associated Diagnosis Comments AMB REFERRAL TO ANTICOAGULATION MONITORING Routine 12/30/2024 8:53 AM EDT documented in this encounter Results * Amb Referral to Anticoagulation Monitori (12/30/2024 8:53 AM EDT) us External Provider OUTPATIENT REFERRAL ORDERAB LES Final Result documented in this encounter Visit Diagnoses Not on filedocumented in this encounter Care Teams Distillation Operator Relationship Specialty Start Date End Date Pcp, No PCP - General General Medicine 01/07/24 Renny Lieberman MD 111 [facility] 8 [place] [address] Primary Finance Business Partner Cardiovascular Disease 12/13/20 documented as of this encounter
--- OUTSIDE RECORDS SUMMARY | 2025-01-20 08:34 | XMS_ITS | Encounter Summary ---
Author Organization [facility] Address [address] [place] [address] Care Team Providers Care Machine Clerical Verifier Name Role Phone Renny Lieberman MD Unavailable [phone] Joseph Talavera MD Primary Care Provider [phone] Renny Lieberman MD Primary Care Provider [phone] Pcp, No Primary Care Provider Unavailabl e Encounter Details Date Type Department Care Team (Late st Contact Info) Description 09/17/2022 Scanned Document [facility] & [facility] [address] [place] [phone] Renny Lieberman MD [address] [place] [address] Social History Tobacco Use Types Packs/Day Years [...] EDT Appointment [facility] Department of Dermatology [place] [address] [facility] [place] [phone] Karolina Price PA-C [address] [place], [place] [address] documented as of this encounter Visit Diagnoses Not on filedocumented in this encounter Care Teams Machine Clerical Verifier Relationship Specialty Start Date End Date Joseph Talavera MD [address] [place] [address] PCP - General Internal Medicine 12/25/20 04/17/23 Renny Lieberman MD [address] [place] [address] PCP - General Cardiovascular Disease 04/18/23 01/06/24 Pcp, No PCP - General General Medicine 01/07/24 Renny Lieberman MD [address] [place] [address] Primary Orthopedic Physician Assistant Cardiovascular Disease 12/13/20 documented as of this encounter
--- OUTSIDE RECORDS SUMMARY | 2025-01-20 08:34 | XMS_ITS | Encounter Summary ---
Author Organization [facility] Address [address] [place] [address] Care Team Providers Care Geographic Information System Analyst Name Role Phone Renny Lieberman MD Unavailable [phone] Renny Lieberman MD Primary Care Provider [phone] Pcp, No Primary Care Provider Unavailabl e Encounter Details Date Type Department Care Team (Late Contact Info) Description 12/31/2023 Scanned Document [facility] Heart & Vascular [place] [address] [place] [address] Renny Lieberman MD [address] 8 [place] [address] Social History Tobacco Use Types [...] EDT Appointment [facility] Department of Dermatology [place] 1[address] [facility] [address] [place] [phone] Karolina Price PA-C [address] 202 [place] [address] documented as of this encounter Visit Diagnoses Not on filedocumented in this encounter Care Teams Geographic Information System Analyst Relationship Specialty Start Date End Date Renny Lieberman MD 111 [facility] 8 [place] [address] PCP - General Cardiovascular Disease 04/18/23 01/06/24 Pcp, No PCP - General General Medicine 01/07/24 Renny Lieberman MD 111 [facility] 8 [place] [address] Primary Steel Fabricating Supervisor Cardiovascular Disease 12/13/20 documented as of this encounter
--- OUTSIDE RECORDS SUMMARY | 2025-01-20 08:34 | XMS_ITS | Encounter Summary ---
Author Organization [facility] Address [address] [place] [address] Care Team Providers Care Hard Hat Diver Name Role Phone Renny Lieberman MD Unavailable [phone] Pcp, No Primary Care Provider Unavailabl e Encounter Details Date Type Department Care Team (Late Contact Info) Description 12/17/2024 Telephone [facility] [address] [facility] [address] [place] [address] Jared Abdalla Social History Tobacco [...] Info) Description 03/18/2025 11:30 AM EDT Appointment [facility] Department of Dermatology [place] 1[address] [facility] [address] [place] [address] Karolina Price PA-C [address] [place] [address] documented as of this encounter Visit Diagnoses Not on filedocumented in this encounter Care Teams Hard Hat Diver Relationship Specialty Start Date End Date Pcp, No PCP - General General Medicine 01/07/24 Renny Lieberman MD [address] [place], [place] [address] Primary Inventory Control Coordinator Cardiovascular Disease 12/13/20 documented as of this encounter
--- OUTSIDE RECORDS SUMMARY | 2025-01-20 08:34 | XMS_ITS | Encounter Summary ---
Author Organization [facility] Address [address] [place] [address] Care Team Providers Care Ship Painter Helper Name Role Phone Renny Lieberman MD Unavailable [phone] Joseph Talavera MD Primary Care Provider [phone] Renny Lieberman MD Primary Care Provider [phone] Pcp, No Primary Care Provider Unavailabl e Encounter Details Date Type Department Care Team (Late Contact Info) Description 02/04/2022 Scanned Document [facility] Heart & Vascular [place] 100 [facility], [address] [place] [address] Renny Lieberman MD [address] [place] [address] Social History Tobacco Use Types Packs/Day [...] Info) Description 03/18/2025 11:30 AM EDT Appointment [facility] Department of Dermatology [place] 1111 [facility] [address] [place] [address] Karolina Price PA-C [address] [facility] 202 [place] [address] documented as of this encounter Visit Diagnoses Not on filedocumented in this encounter Care Teams Ship Painter Helper Relationship Specialty Start Date End Date Joseph Talavera MD [address] [place] [address] PCP - General Internal Medicine 12/25/20 04/17/23 Renny Lieberman MD [address] [place] [address] PCP - General Cardiovascular Disease 04/18/23 01/06/24 Pcp, No PCP - General General Medicine 01/07/24 Renny Lieberman MD [address] [place] [facility] 8 [place] [address] Primary Blocker Hand Cardiovascular Disease 12/13/20 documented as of this encounter
--- OUTSIDE RECORDS SUMMARY | 2025-01-20 08:34 | XMS_ITS | Clinical Summary ---
Author Organization [facility] Address [address] [place] [address] Care Team Providers Care Over The Road Driver Name Role Phone Renny Lieberman MD Unavailable [phone] Pcp, No Primary Care Provider Unavailabl [...] mean gradient 40s. S/p TAVR January 20' -[facility] Diastolic dysfunction 12/13/2020 Overview (12/13/2020): Grade 2 on echo 2014 Other hyperlipidemia 12/13/2020 Encounters Date Type Department Care Team Description 01/12/2025 Orders Only [facility] Heart & Vascular [place] [address] [place] [address] Provider, MD Faustino 12/17/[address] [place] [address] Jared Abdalla 12/06/2024 Telephone [facility] 85 [facility] 3[address] [place] [address] Santosh Roa 11/11/2024 Telephone [facility] 85 [facility] [address] [place] [address] Jared Abdalla from Last 3 [...] EDT Appointment [facility] Department of Dermatology [address] [phone] Karolina Price PA-C [address] [id number] Health Maintenance Due Date Last Done Comments [...] Final Result from Last 3 Months Insurance [facility] MEDICARE PART A [facility] [place] [id number] MEDICARE PART A [facility] Care Teams Over The Road Driver Relationship Specialty Start Date End Date Pcp, No PCP - General General Medicine 01/07/24 Renny Lieberman MD [address] [place] [address] 8 [place] [address] Primary Complaint Specialist Cardiovascular Disease 12/13/20
--- OUTSIDE RECORDS SUMMARY | 2025-01-20 08:34 | XMS_ITS ---
Author Organization Kody Morgan MD Address [address] [place] [phone] Care Team Providers Care Call Specialist Name Role Phone Kody Morgan Primary Care Provider [phone] REASON FOR VISIT RF Tamsulosin Medications Medication SIG (Take, Route, Fr equency, Duration) Notes Start Date End Date Status Tamsulosin HCl 0.4 MG 1 capsule Orally t wice a day for 90 days 01/04/2025 Active Encounters Encounter Location Date Provider Diagnosis Kody Morgan MD [address] [place] [address] [place] [id number] 01/06/2025 Kody Morgan 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 Assessments Encounter Date Diagnosis (ICD Code) Assessment Notes Treatment Notes Treatment Clinical Notes Section Notes 01/06/2025 Prostatism (ICD-10 - N40.0) Plan Of Treatment Medication Medication Name Sig Start Date Stop Date Notes Tamsulosin HCl 0.4 MG 1 capsule Orally t wice a day for 90 days 01/04/2025 Next Appt Details Provider Name:Kody mack, 02/11/2025 02:00:00 PM, [address] [place] [address], [address], [phone], Provider Name:Kody mack, 05/05/2025 07:15:00 AM, [address] [place] [address], [address], [id number], Provider Name:Kody mack, 05/12/2025 10:00:00 AM, [address], [address], [place], [id number], Provider Name:Kody Jama freedrick, 11/04/2025 07:45:00 AM, [address], [address], [place], [id number], Provider Name:Kody Jama frederick, 11/11/2025 11:00:00 AM, [address] [facility] [address], [address], [place], [id number], Progress Notes * Joseph TALAVERADOB:[birth year] (74 yo M)Acc No.[id number]:01/06/2025 Patient:?Joseph TALAVERA :1950???Age:74 Y???Sex:Male Address:[address] [place], [place] [address], [address] * Refills? Refill Tamsulosin HCl Capsule, 0.4 MG, Orally, 180 Capsule, 1 capsule, twice a day, 90 days, Refills=3 * true * Date:? Generated for Tacos clemons/Brandi/eTransmitting on:?01/20/2025 08:34 AM EDT
--- OUTSIDE RECORDS SUMMARY | 2025-01-20 08:34 | XMS_ITS | Encounter Summary ---
Author Organization [facility] Address 100 [place] [address] Care Team Providers Care Manufacturing Plant Manager Name Role Phone Renny Lieberman MD Unavailable [phone] Pcp, No Primary Care Provider Unavailabl e Encounter Details Date Type Department Care Team (Late st Contact Info) Description 11/11/2024 Telephone [facility] [address] [facility] [address] [place] [address] Jared Abdalla Social History Tobacco [...] EDT Appointment [facility] Department of Dermatology [place] 1111 [facility] [address] [place] [address] Karolina Price PA-C [address] [facility] 202 [place] [address] documented as of this encounter Visit Diagnoses Not on filedocumented in this encounter Care Teams Manufacturing Plant Manager Relationship Specialty Start Date End Date Pcp, No PCP - General General Medicine 01/07/24 Renny Lieberman MD [address] [place] [facility] 8 [place] [address] Primary Hook And Eye Machine Operator Cardiovascular Disease 12/13/20 documented as of this encounter
--- OUTSIDE RECORDS SUMMARY | 2025-01-20 08:34 | XMS_ITS | Encounter Summary ---
Author Organization [facility] Address [address] [place] [address] Care Team Providers Care Grocery Buyer Name Role Phone Renny Lieberman MD Unavailable [phone] Joseph Talavera MD Primary Care Provider [phone] Renny Lieberman MD Primary Care Provider [phone] Pcp, No Primary Care Provider Unavailabl e Encounter Details Date Type Department Care Team (Late st Contact Info) Description 02/27/2021 Scanned Document [facility] Cancer [place] [facility] at [address] [address] Estiven Larson MD [address] [place] [address] Social History Tobacco Use Types Packs/Day Years [...] EDT Appointment [facility] Department of Dermatology [place] [address] [facility] [place] [phone] Karolina Price PA-C [address] [place], [place] [address] documented as of this encounter Visit Diagnoses Not on filedocumented in this encounter Care Teams Grocery Buyer Relationship Specialty Start Date End Date Joseph Talavera MD [address] [place] [address] PCP - General Internal Medicine 12/25/20 04/17/23 Renny Lieberman MD [address] [place] [address] PCP - General Cardiovascular Disease 04/18/23 01/06/24 Pcp, No PCP - General General Medicine 01/07/24 Renny Lieberman MD [address] [place] [address] Primary Molten Iron Pourer Cardiovascular Disease 12/13/20 documented as of this encounter
--- OUTSIDE RECORDS SUMMARY | 2025-01-20 08:34 | XMS_ITS ---
Author Organization Kody Morgan MD Address [address] [place], [place] [phone] Care Team Providers Care Coke Burner Name Role Phone Kody Morgan Primary Care [...] kg/m2 01/04/2025 weight is down 4 pounds [facility] 11-08-24 Encounters Encounter Location Date Provider Diagnosis Kody Morgan MD [address] [facility] [address] [place] [phone] 01/04/2025 Kody Morgan Essential hypertension I10 ; [...] Reason: Provider Name:Kody mack, 02/11/2025 02:00:00 PM, [address] [place] [address], [address] [place] [address], [id number], Provider Name:Kody mack, 05/05/2025 07:15:00 AM, [address] [place] [address], [place] [address], [place], [place], [id number], Provider Name:Kody Jama ier, 05/12/2025 10:00:00 AM, [address], [address], [place], [phone], Provider Name:Kody Jama ier, 11/04/2025 07:45:00 AM, [address], [address], [place], [phone], Provider Name:Kody Jama ier, 11/11/2025 11:00:00 AM, [address], [address], [place], [id number], Progress Notes * Joseph TALAVERADOB:[birth year] (74 yo M)Acc No.[id number]:01/04/2025 Progress Notes Patient:?Joseph TALAVERA Provider:?Kody Morgan MD :1950???Age:74 Y???Sex:Male Yuan e:01/04/2025 Address:[address] [place] [address] [facility] [id number] Subjective: * Chief Complaints: * ???1 month * HPI: ???Symptom(s):?patient is a 74 yo male here for one month follow up visit/ still losing weight. saw 2 car repairer apprentice and they both thought pet scan was [...] MD Date:?0 01/04/2025 Generated for Tacos clemons/Brandi/eTransmitting on:?01/20/2025 08:34 AM EDT History and Physical Notes * HPI (History of Present Illness) Category Sub-Category Detail Notes Category Not es Symptom(s) patient is a 74 yo male here for one month follow up visit/ still losing weight. saw 2 car repairer apprentice and they both thought pet scan was [...]
--- OUTSIDE RECORDS SUMMARY | 2025-01-20 08:34 | XMS_ITS | Clinical Summary ---
Author Organization Counts include 234 beds at the [facility] Address [address] [place] [address] Care Team Providers Care Brush Trimming Machine Setter Name Role Phone Pcp, No MD Primary [...] mouth daily as needed. 02/23/2021 Active omega 9-tnf-jxb-fish oil (Fish OiL) 1,000 mg (120 mg-180 [...] Hemoglobin Negative Negative 09/25/2023 2:[address] [facility] Comment:This is a screening test [...] FLUIDS AND STOOLS SHRUTI ERAZO Final Result [facility] [address] [place] [address], [place] [phone] from Last 3 Months or Most Recently Relevant to Health Maintenance Insurance [employer] Care Teams Brush Trimming Machine Setter Relationship Specialty Start Date End Date Pcp, MD Heather [address] [place] [address] PCP - General Internal Medicine 09/15/23
--- OUTSIDE RECORDS SUMMARY | 2025-01-20 08:34 | XMS_ITS | Encounter Summary ---
Author Organization [facility] Address [address] [place] [address] Care Team Providers Care Supervisor Picking Crew Name Role Phone Renny Lieberman MD Unavailable Pcp, No Primary Care Provider Unavailabl e Encounter Details Date Type Department Care Team (Late st Contact Info) Description 01/30/2024 Scanned Document [facility] Heart & Vascular [place] 100 [facility], [address] [place] [address] Renny Lieberman MD 111 [facility] 8 [place], [place] [phone] Social History Tobacco Use Types Packs/Day Years [...] EDT Appointment [facility] Department of Dermatology [place] [address] [place] [address] Karolina Price PA-C [address] [place] [address] documented as of this encounter Visit Diagnoses Not on filedocumented in this encounter Care Teams Supervisor Picking Crew Relationship Specialty Start Date End Date Pcp, No PCP - General General Medicine 01/07/24 Renny Lieberman MD [address] [address] Primary Medical I D Sales Cardiovascular Disease 12/13/20 documented as of this encounter
--- OUTSIDE RECORDS SUMMARY | 2025-01-20 08:34 | XMS_ITS | Encounter Summary ---
Author Organization [facility] Address [address] [place] [address] Care Team Providers Care Cement Truck Driver Name Role Phone Renny Lieberman MD Unavailable [phone] Joseph Talavera MD Primary Care Provider [phone] Renny Lieberman MD Primary Care Provider [phone] Pcp, No Primary Care Provider Unavailabl e Encounter Details Date Type Department Care Team (Late Contact Info) Description 01/04/2022 Scanned Document [facility] Heart & Vascular [place] 100 [facility], [address] [place] [address] Renny Lieberman MD [address] [place] [address] Social History Tobacco Use Types Packs/Day [...] Info) Description 03/18/2025 11:30 AM EDT Appointment [facility] Department of Dermatology [place] 1[address] [facility] [address] [place] [address] Karolina Price PA-C [address] [facility] 202 [place] [address] documented as of this encounter Visit Diagnoses Not on filedocumented in this encounter Care Teams Cement Truck Driver Relationship Specialty Start Date End Date Joseph Talavera MD [address] [place] [address] PCP - General Internal Medicine 12/25/20 04/17/23 Renny Lieberman MD [address] [place] [address] PCP - General Cardiovascular Disease 04/18/23 01/06/24 Pcp, No PCP - General General Medicine 01/07/24 Renny Lieberman MD [address] [place] [facility] 8 [place] [address] Primary Physical Therapy Aides Teacher Cardiovascular Disease 12/13/20 documented as of this encounter
--- OUTSIDE RECORDS SUMMARY | 2025-01-20 08:34 | XMS_ITS | Patient Health Record ---
Author Organization Kody Morgan MD Address [address] [place], [place] [id number] Care Team Providers Care Travel Professional Name Role Phone Kody Morgan Primary Care Provider Allergies No Known Allergies Results Component Value Reference Range Notes Hold Gold Reviewed date:11/08/2024 05:58:22 PM Interpretation: Performing Lab:[facility], [address] [place] [phone] Notes/Report: Aubrey George See Note Specimen held untested for 24 hours; Call to request Chemistry testing. Complete Blood Count Auto Di ff Reviewed date:11/08/2024 02:27:02 PM Interpretation: Performing Lab:[facility], [address] [place] [phone] Notes/Report: White Blood Count 6.0 4.8-10.8 X10*3/uL [...] Microscopic Reviewed date:11/08/2024 06:04:55 PM Interpretation: Performing Lab:[facility], [address] [place] [phone] Notes/Report: Color Urine Yellow Appearance Urine Clear PH 6.0 5.0-9.0 Glucose Urine UA Negative Negative mg/dL Urine Blood Negative Negative Specific [place] - Urine 1.015 1.005-1.025 Urine Protein Negative Neg-Trace mg/dL Urine Ketones Negative Negative mg/dL Nitrite Urine Negative Negative Leukocyte Esterase Urine Negative Negative RBC Urine 0-2 0-2 /HPF WBC Urine 0-5 0-5 /HPF Squamous Epithelial Cell Urine 0-2 0-2 /HPF Bacteria Urine None Seen None Seen Hyaline Casts Urine 0-2 0-2 /LPF Comprehensive [place]. Panel Fa st Reviewed date:11/08/2024 02:27:28 PM Interpretation: Performing Lab:[facility], [address] [place] [phone] Notes/Report: Sodium 139 135-145 mmol/L Potassium 4.8 [...] Amylase Reviewed date:11/08/2024 02:26:23 PM Interpretation: Performing Lab:[address] [phone] Notes/Report: Amylase 99 28-100 U/L Lipase Reviewed date:11/08/2024 02:26:31 PM Interpretation: Performing Lab:[address] [phone] Notes/Report: Lipase 23 8-78 U/L Urine Culture Reviewed date:11/09/2024 12:24:46 PM Interpretation: Performing Lab:[address] [phone] Notes/Report: Urine Culture No growth. Reason For [...] Status W/U Status Risk Notes Problem Neutropenia (791313463) Neutropenia (D70.9) Active confirmed Problem 20967828 Prostatism (N40.0) Active confirmed Problem Insomnia (405348139) Insomnia (G47.00) Active confirmed Problem 57686994 Essential hypertension (I10) Active confirmed Problem 50952402 Hypercholesterem ia (E78.00) Active confirmed Problem 7237893974530 S/P TAVR (transcatheter aortic valve replacement) (Z95.2) Active confirmed Problem 923171658 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 [...] Diagnosis Kody Morgan MD [address] [place] [id number] 08/02/2024 Kody Morgan Essential hypertensi on I10 ; 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 ; Indolent non-Hodgkins lymphoma C85.80 ; Hypercholesteremia E78.00 and S/P TAVR (transcatheter aortic valve replacement) Z95.2 [address]ody [address] MD [address] [place] [id number] 11/08/2024 Kody Morgan Essential hypertensi on I10 ; Indolent non-Hodgkins lymphoma C85.80 ; S/P TAVR (transcatheter aortic valve replacement) Z95.2 ; Weight loss R63.4 ; Neutropenia D70.9 and Insomnia G47.00 Kody Morgan MD [address] [place] [id number] 01/04/2025 Kody Morgan Essential hypertensi on I10 ; Weight loss R63.4 ; Neutropenia D70.9 and 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 Kody Morgan MD [address] [place] [id number] 11/08/2024 Kody Morgan MD [address] [place] [address] Drive [address] [place] [id number] 01/06/2025 Kody Morgan 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 Kody Morgan MD [address] [place] [address] [address] [place] [id number] 08/13/2024 Kody Morgan Assessments Encounter Date Diagnosis [...] Hypercholesteremia (ICD-10 - E78.00) is followed at [facility] when he get infusions, will continue current regiment and will continue to monitor 11/08/2024 Weight loss (ICD-10 - R63.4) is afraid to eat due to the constipation. 01/04/2025 Neutropenia (ICD-10 - D70.9) is stable, will cntinue to monitor 08/02/2024 S/P TAVR (transcatheter aortic valve replacement) (ICD-10 - Z95.2) is followed in [place] 11/08/2024 Neutropenia (ICD-10 - D70.9) will continue to monitor 01/04/2025 Prostatism (ICD-10 - N40.0) need notes from dr dexter 11/08/2024 Insomnia (ICD-10 - G47.00) will continue current regiment 01/04/2025 Other patient verbalized understanding of medicatin and directions for use Plan Of Treatment Next Appt Details Provider Name:Kody marier, 02/11/2025 02:00:00 PM, [address] [place] [address], [address], [phone], Provider Name:Kody marier, 05/05/2025 07:15:00 AM, [address] [place] [address], [address], [phone], Provider Name:Kody Jama ier, 05/12/2025 10:00:00 AM, [address] [place] [address], [address], [phone], Provider Name:Kody Jama ier, 11/04/2025 07:45:00 AM, [address] [place] [address], [address], [phone], Provider Name:Kody marier, 11/11/2025 11:00:00 AM, [address] [place] [address], [address], [phone], Insurance Providers Payer Name Payer Address Payer Phone Subscriber Number Group Number Insured Name Patient Relationship to Insured Coverage Start Date Coverage End Date [facility] [address] [place] [phone] [id number] Joseph Talavera Self - patient is the insured Medical (General) History Medical History History ICD Code could not have colonoscopy due to valve and had FIT 2022 that was negative
--- OUTSIDE RECORDS SUMMARY | 2025-01-20 08:34 | XMS_ITS | Encounter Summary ---
Author Organization [facility] Address [address] [place] [address] Care Team Providers Care Compounding Technician Name Role Phone Renny Lieberman MD Unavailable Pcp, No Primary Care Provider Unavailabl e Encounter Details Date Type Department Care Team (Late st Contact Info) Description 12/06/20[address] [facility] [address] [address] Santosh Roa [address] [facility] [address] [place], [place] [address] Social History Tobacco Use Types Packs/Day Years [...] SENT: This is from Dr. Ferrer at [facility] to let you know you are due for follow-up care. Please call us at . Reply Stop to opt out. documented in this encounter Plan of Treatment Upcoming Encounters Date Type Department Care Team (Late st Contact Info) Description 03/18/2025 11:30 AM EDT Appointment [facility] Department of Dermatology [place] [address] [facility] [address] [place] [phone] Karolina Price PA-C [address] [facility] [address] [place], [place] [address] documented as of this encounter Visit Diagnoses Not on filedocumented in this encounter Care Teams Compounding Technician Relationship Specialty Start Date End Date Pcp, No PCP - General General Medicine 01/07/24 Renny Lieberman MD [address] [facility] 8 [place] [address] Primary Rotary Lithographic Press Operator Cardiovascular Disease 12/13/20 documented as of this encounter
--- OUTSIDE RECORDS SUMMARY | 2025-01-20 08:34 | XMS_ITS | Encounter Summary ---
Author Organization [facility] Address [address] [place] [address] Care Team Providers Care Hot Mill Operator Name Role Phone Renny Lieberman MD Unavailable [phone] Joseph Talavera MD Primary Care Provider [phone] Renny Lieberman MD Primary Care Provider [phone] Pcp, No Primary Care Provider Unavailabl e Encounter Details Date Type Department Care Team (Late Contact Info) Description 02/16/2021 Scanned Document [facility] [place] [address] [facility], [address] [place] [address] Renny Lieberman MD [address] [facility] 8 [place] [address] Social History Tobacco Use [...] EDT Appointment [facility] Department of Dermatology [place] [address] [facility] [address] [place] [phone] Karolina Price PA-C [address] [facility] [address] [place], [place] [address] documented as of this encounter Visit Diagnoses Not on filedocumented in this encounter Care Teams Hot Mill Operator Relationship Specialty Start Date End Date Joseph Talavera MD [address] [place] [address] PCP - General Internal Medicine 12/25/20 04/17/23 Renny Lieberman MD [address] [place] [address] PCP - General Cardiovascular Disease 04/18/23 01/06/24 Pcp, No PCP - General General Medicine 01/07/24 Renny Lieberman MD [address] [place] [address] Primary Script Manager Cardiovascular Disease 12/13/20 documented as of this encounter
[2025-01-20 08:49] LABS: Prothrombin Time Whole Bld POC 22.9 sec (11.1-13.5); ~PT, ~INR - Anti Coag Clinic 1.9 (0.9-1.1)
--- NOTE | 2025-01-20 08:54 | MHC.OFFVISCO ---
Intake Intake Visit Reasons: Anticoagulation Allergies No Known Allergies Allergy (Verified 01/20/25 08:44) Medication List - Last Reconciled 01/20/25 by Madhavi Espinoza, ZEUS alfuzosin ER 10 mg PO DAILY aspirin (Adult Aspirin Regimen) 81 mg PO DAILY atenolol 25 mg PO DAILY atorvastatin 20 mg PO DAILY chlorhexidine gluconate 0.12% PO cholecalciferol (vitamin D3) 25 mcg PO DAILY clonazepam (Klonopin) 1 mg PO .prn dutasteride (Avodart) 0.5 mg PO DAILY irbesartan 150 mg PO DAILY warfarin 5 mg See Protocol PO DAILY Nursing Note INR: 1.9 out of therapeutic range of 2-3 Medications and supplements reviewed No changes in health, diet, medications, or supplements, Denies any signs and symptoms of bleeding or bruising or clotting. 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 Illness/Depression: Yes (ANXIETY) Coding Level of Care Code Est Patient Level 1 Diagnoses Current use of anticoagulant therapy Z79.01 Assessment & Plan Assessment & Plan (1) Current use of anticoagulant therapy: Code(s): Z79.01 - extermination inspector (current) use of anticoagulants Category: Medical
== END 2025-01-20 08:58 | disposition home or self-care (01) ==
LOC: HO.ACS 08:24
PROVIDERS: PCP Internal Medicine Hematology; Visit Provider Internal Medicine Medical Oncology
DX: Z79.01 Long term (current) use of anticoagulants (principal)

== ENCOUNTER → 2025-01-20 08:24 | Outpatient (BNVA) | payer OTHER, SELFPAY | PROVIDERS: PCP Internal Medicine Hematology; Visit Provider Internal Medicine Medical Oncology | DX: Z95.2 Presence of prosthetic heart valve (principal); Z51.81 Encounter for therapeutic drug level monitoring; Z79.01 Long term (current) use of anticoagulants | CPT/HCPCS: 85610; 99211 ==

== ENCOUNTER 2025-03-30 13:21 | Outpatient (AMB) | payer OTHER, SELFPAY ==
--- NOTE | 2025-03-30 13:35 | MHC.OFFVISCO ---
Intake Intake Visit Reasons: Anticoagulation Allergies No Known Allergies Allergy (Verified 03/30/25 13:27) Medication List - Last Reconciled 03/30/25 by Yen Mitchell RN alfuzosin ER 10 mg PO DAILY aspirin (Adult Aspirin Regimen) 81 mg PO DAILY atenolol 25 mg PO DAILY atorvastatin 20 mg PO DAILY chlorhexidine gluconate 0.12% PO cholecalciferol (vitamin D3) 25 mcg PO DAILY clonazepam (Klonopin) 1 mg PO .prn dutasteride (Avodart) 0.5 mg PO DAILY irbesartan 150 mg PO DAILY warfarin 5 mg See Protocol PO DAILY Nursing Note INR: 2.1- in therapeutic range of 2-3 Medications and supplements reviewed- wants to start a MVI- will check vit K content No changes in health, diet, medications, or supplements, Denies any signs and symptoms of bleeding or bruising or clotting. Bleeding, bruising, clotting discussed Nutritional guidance given Dose: 5mg x 7 F/U INR: pt req 2 weeks Patient verbalizes understanding of instructions given pt has home meter for poc inr checks pt deni4s hematuria and states is not straight cathing at this time pt states his pet scan was neg Anti-Coag Initial Assessment Social Hx Patient Tobacco Use Status: Never used Tobacco alcohol intake: never Cardiovascular Hx: HTN and Other Blood Disorder Hx: Hyperlipidemia Hx: Prostate Neurological Hx: Other 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 Illness/Depression: Yes (ANXIETY) Coding Level of Care Code Est Patient Level 1 Diagnoses Current use of anticoagulant therapy Z79.01 Results AMB INR Fingerstick AMB INR Fingerstick 2.1 Last Edit by Yen Mitchell RN on 03/30/25 13:41 interface delay Assessment & Plan Assessment & Plan (1) Current use of anticoagulant therapy: Code(s): Z79.01 - assisted (current) use of anticoagulants Category: Medical
--- OUTSIDE RECORDS SUMMARY | 2025-03-30 13:54 | XMS_ITS | Encounter Summary ---
Author Organization [facility] Address [address] [facility] [address] [place] [address] Phone Care Team Providers Care Client Strategist Name Role Phone Luis Miguel Ambrocio MD Unavailable [phone] Renny Lieberman MD Primary Care Provider Un available Encounter Details Date Type Department Care Team (Late st Contact Info) Description 09/25/2023 Procedure Pass [facility] Cardiac US [address] [place] [address] Social History Tobacco Use Types Packs/Day Years Used Date Smoking Tobacco: Never Smokeless Tobacco: Never Education Answer Date Recorded Are you interested in more education? Not on inga e 01/02/2023 Are you concerned about learning? Not on file 01/02/2023 No 01/02/2023 No 01/02/2023 Digital Access Answer Date Recorded No 01/21/2023 No 01/21/2023 Reliable internet access at home? Not on file 01/21/2023 Device with a working camera? Not on file Sex and Gender Information Value Date Recorded Sex Assigned at Male 01/08/2021 2:25 PM EDT Legal Sex Male 2:26 PM EDT Gender Identity Male 01/08/2021 2:25 PM EDT Sexual Orientation Straight 01/08/2021 2: 25 PM EDT documented as of this encounter Plan of Treatment Not on file documented as of this encounter Visit Diagnoses Not on filedocumented in this encounter Care Teams Client Strategist Relationship Specialty Start Date End Date Renny Lieberman MD [address] [place] [address] PCP - General Cardiology 01/03/22 Luis Miguel Ambrocio MD [address] [place] [address] [id number] [place] [address] [email or web address] Converter Supervisor Cardiology 08/03/21 documented as of this encounter Additional Source Comments The information contained in this document represents components of the legal health record. It is not the complete legal health record.[facility]
--- OUTSIDE RECORDS SUMMARY | 2025-03-30 13:54 | XMS_ITS | Patient Health Record ---
Author Organization Kody Morgan MD Address [address] [place], [place] [phone] Care Team Providers Care Medical Attendant Name Role Phone Kody Morgan Primary Care Provider [phone] Allergies No Known Allergies Results Component Value Reference Range Notes Hold Gold Reviewed date:11/08/2024 05:58:22 PM Interpretation: Performing Lab:[facility], [address] [place] [phone] Notes/Report: Aubrey George See Note Specimen held untested for 24 hours; Call to request Chemistry testing. Complete Blood Count Auto Di ff Reviewed date:11/08/2024 02:27:02 PM Interpretation: Performing Lab:[facility], [address] [place] [phone] Notes/Report: White Blood Count 6.0 4.8-10.8 X10*3/uL [...] Microscopic Reviewed date:11/08/2024 06:04:55 PM Interpretation: Performing Lab:[facility], [address] [place] [phone] Notes/Report: Color Urine Yellow Appearance Urine Clear PH 6.0 5.0-9.0 Glucose Urine UA Negative Negative mg/dL Urine Blood Negative Negative Specific [place] - Urine 1.015 1.005-1.025 Urine Protein Negative Neg-Trace mg/dL Urine Ketones Negative Negative mg/dL Nitrite Urine Negative Negative Leukocyte Esterase Urine Negative Negative RBC Urine 0-2 0-2 /HPF WBC Urine 0-5 0-5 /HPF Squamous Epithelial Cell Urine 0-2 0-2 /HPF Bacteria Urine None Seen None Seen Hyaline Casts Urine 0-2 0-2 /LPF Comprehensive [place]. Panel Fa st Reviewed date:11/08/2024 02:27:28 PM Interpretation: Performing Lab:[facility], [address] [place] [phone] Notes/Report: Sodium 139 135-145 mmol/L Potassium 4.8 [...] Amylase Reviewed date:11/08/2024 02:26:23 PM Interpretation: Performing Lab:[address] [phone] Notes/Report: Amylase 99 28-100 U/L Lipase Reviewed date:11/08/2024 02:26:31 PM Interpretation: Performing Lab:[address] [phone] Notes/Report: Lipase 23 8-78 U/L Urine Culture Reviewed date:11/09/2024 12:24:46 PM Interpretation: Performing Lab:[address] [phone] Notes/Report: Urine Culture No growth. Reason For [...] Status W/U Status Risk Notes Problem Neutropenia (393043824) Neutropenia (D70.9) Active confirmed Problem 98561546 Prostatism (N40.0) Active confirmed Problem Insomnia (414470583) Insomnia (G47.00) Active confirmed Problem 99269716 Essential hypertension (I10) Active confirmed Problem 67464936 Hypercholesterem ia (E78.00) Active confirmed Problem 3987569953126 S/P TAVR (transcatheter aortic valve replacement) (Z95.2) Active confirmed Problem 215591185 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 [...] Diagnosis Kody Morgan MD [address] [place] [id number] 08/02/2024 Kody Morgan Essential hypertensi on I10 ; 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 ; Indolent non-Hodgkins lymphoma C85.80 ; Hypercholesteremia E78.00 and S/P TAVR (transcatheter aortic valve replacement) Z95.2 Kody Morgan MD [address] [place] [id number] 11/08/2024 Kody Morgan Essential hypertensi on I10 ; Indolent non-Hodgkins lymphoma C85.80 ; S/P TAVR (transcatheter aortic valve replacement) Z95.2 ; Weight loss R63.4 ; Neutropenia D70.9 and Insomnia G47.00 Kody Morgan MD [address] [place] [id number] 01/04/2025 Kody Morgan Essential hypertensi on I10 ; Weight loss R63.4 ; Neutropenia D70.9 and 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 Kody Morgan MD [address] [place] [id number] 11/08/2024 Kody Morgan MD [address] [place] [address] Drive [address] [place] [id number] 01/06/2025 Kody Morgan 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 Kody Morgan MD [address] [place] [address] Drive [address] [place] [id number] 08/13/2024 Kody Morgan Assessments Encounter Date Diagnosis [...] Hypercholesteremia (ICD-10 - E78.00) is [place] at [facility] when he get infusions, will continue current regiment and will continue to monitor 11/08/2024 Weight loss (ICD-10 - R63.4) is afraid to eat due to the constipation. 01/04/2025 Neutropenia (ICD-10 - D70.9) is stable, will cntinue to monitor 08/02/2024 S/P TAVR (transcatheter aortic valve replacement) (ICD-10 - Z95.2) is followed in [place] 11/08/2024 Neutropenia (ICD-10 - D70.9) will continue to monitor 01/04/2025 Prostatism (ICD-10 - N40.0) need notes from dr dexter 11/08/2024 Insomnia (ICD-10 - G47.00) will continue current regiment 01/04/2025 Other patient verbalized understanding of medicatin and directions for use Plan Of Treatment Next Appt Details Provider Name:Kody marier, 04/14/2025 01:45:00 PM, [address] [place] [address], [address], [phone], Provider Name:Kody marier, 05/05/2025 07:15:00 AM, [address] [place] [address], [address], [phone], Provider Name:Kody Jama ier, 05/12/2025 10:00:00 AM, [address] [place] [address], [address], [phone], Provider Name:Kody Jama ier, 11/04/2025 07:45:00 AM, [address] [place] [address], [address], [phone], Provider Name:Kody marier, 11/11/2025 11:00:00 AM, [address] [place] [address], [address], [phone], Insurance Providers Payer Name Payer Address Payer Phone Subscriber Number Group Number Insured Name Patient Relationship to Insured Coverage Start Date Coverage End Date [facility] [address] [place] [phone] [id number] Joseph Talavera Self - patient is the insured Medical (General) History Medical History History ICD Code could not have colonoscopy due to valve and had FIT 2022 that was negative
--- OUTSIDE RECORDS SUMMARY | 2025-03-30 13:54 | XMS_ITS | Clinical Summary ---
[facility] Organization [facility] Address [address] [place] [address] Care Team Providers Care Water Purification Chemist Name Role Phone Pcp, No MD Primary [...] mouth daily as needed. 02/23/2021 Active omega 9-bsf-ylh-fish oil (Fish OiL) 1,000 mg (120 mg-180 [...] 67 09/19/2023 10:44 AM EST Temperature 36.4 C (97.6 F) 09/19/2023 10:44 AM EST Respiratory Rate 24 09/19/2023 10:44 AM EST [...] (1 of 2) 11/16/1969 Influenza Vaccine (#1) 2025 Colorectal Cancer Screening Discontinued FIT Discontinued [...] Hemoglobin Negative Negative 09/25/2023 2:11 PM EST [facility] Comment:This is a screening [...] FLUIDS AND STOOLS SHRUTI ERAZO Final Result [facility] [address] [place] [address], [place] [phone] from Last 3 Months or Most Recently Relevant to Health Maintenance Insurance [facility] [id number] Care Teams Water Purification Chemist Relationship Specialty Start Date End Date PcpHeather MD [address] [place] [address] PCP - General Internal Medicine 09/15/23
--- OUTSIDE RECORDS SUMMARY | 2025-03-30 13:54 | XMS_ITS | Encounter Summary ---
Author Organization [facility] Address [address] [place] [address] Care Team Providers Care Pricing/Signage Team Member Name Role Phone Renny Lieberman MD Unavailable [phone] Pcp, No Primary Care Provider Unavailabl e Encounter Details Date Type Department Care Team (Late st Contact Info) Description 02/28/2025 Telephone [facility] [address] [place] [address] Bc Blanco [address] [facility] [place] [address] Social History Tobacco Use Types Packs/Day Years [...] Job Start Date Job End Date Retired [employer] Not on file Not on inga e Not on file documented as of this encounter Miscellaneous Notes * Telephone Encounter - Bc Blanco - 02/28/2025 4:05 PM EDT Called pt to schedule patient will call back when ready /Colon recall/ ER OCS documented in this encounter Plan of Treatment Not on file documented as of this encounter Visit Diagnoses Not on filedocumented in this encounter Care Teams Pricing/Signage Team Member Relationship Specialty Start Date End Date Pcp, No PCP - General General Medicine 01/07/24 Renny Lieberman MD [address] [place] [address] Primary Corporate Law Specialist Cardiovascular Disease 12/13/20 documented as of this encounter
[2025-03-30 16:06] LABS: Prothrombin Time Whole Bld POC 25.7 sec (11.1-13.5); ~PT, ~INR - Anti Coag Clinic 2.1 (0.9-1.1)
== END 2025-03-30 13:57 | disposition home or self-care (01) ==
LOC: HO.ACS 13:21
PROVIDERS: PCP Internal Medicine Hematology; Visit Provider Internal Medicine Medical Oncology
DX: Z79.01 Long term (current) use of anticoagulants (principal)

== ENCOUNTER → 2025-03-30 13:21 | Outpatient (BNVA) | payer OTHER, SELFPAY | PROVIDERS: PCP Internal Medicine Hematology; Visit Provider Internal Medicine Medical Oncology | DX: Z95.2 Presence of prosthetic heart valve (principal); Z79.01 Long term (current) use of anticoagulants; Z51.81 Encounter for therapeutic drug level monitoring | CPT/HCPCS: 85610; 99211 ==

== ENCOUNTER 2025-04-14 13:22 | Outpatient (AMB) | payer OTHER, SELFPAY ==
[2025-04-14 13:32] LABS: Prothrombin Time Whole Bld POC 25.9 sec (11.1-13.5); ~PT, ~INR - Anti Coag Clinic 2.2 (0.9-1.1)
--- NOTE | 2025-04-14 13:42 | MHC.OFFVISCO ---
Intake Intake Visit Reasons: Anticoagulation Allergies No Known Allergies Allergy (Verified 04/14/25 13:25) Medication List - Last Reconciled 04/14/25 by Madhavi Espinoza, RN alfuzosin ER 10 mg PO DAILY aspirin (Adult Aspirin Regimen) 81 mg PO DAILY atenolol 25 mg PO DAILY atorvastatin 20 mg PO DAILY chlorhexidine gluconate 0.12% PO cholecalciferol (vitamin D3) 25 mcg PO DAILY clonazepam (Klonopin) 1 mg PO .prn dutasteride (Avodart) 0.5 mg PO DAILY irbesartan 150 mg PO DAILY linaclotide (Linzess) 290 mcg PO QAM warfarin 5 mg See Protocol PO DAILY Nursing Note Pt to ACS with his own meter. INR done on pt's meter and on ACS meter. Pt meter result: 2.1 INR by ACS meter: 2.2, therapeutic range 2-3. Pt completed course of treatment with Rituximab. Pt believes that his recent hematuria is related to his low plt count which pt states was as low as 150 and was 270 at start of Rituximab infusions. He is not having hematuria at this time. Medications and supplements reviewed No changes in health, diet, medications, or supplements, Denies any signs and symptoms of bleeding or bruising or clotting. 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 Illness/Depression: Yes (ANXIETY) Coding Level of Care Code Est Patient Level 2 Diagnoses Current use of anticoagulant therapy Z79.01 Time Spent (min) 30 Comment meter to meter correlation done Assessment & Plan Assessment & Plan (1) Current use of anticoagulant therapy: Code(s): Z79.01 - exterminator (current) use of anticoagulants Category: Medical
--- OUTSIDE RECORDS SUMMARY | 2025-04-14 14:14 | XMS_ITS | Clinical Summary ---
Author Organization [facility]ly [facility] Address [address] [place] [address] Care Team Providers Care Cna Pct Name Role Phone Pcp, No MD Primary [...] mouth daily as needed. 02/23/2021 Active omega 6-kfh-kyx-fish oil (Fish OiL) 1,000 mg (120 mg-180 [...] Hemoglobin Negative Negative 09/25/2023 2:11 PM EST [facility] Comment:This is a screening [...] FLUIDS AND STOOLS SHRUTI ERAZO Final Result [facility] [address] [place] [address], [place] [phone] from Last 3 Months or Most Recently Relevant to Health Maintenance [facility] [id number] Care Teams Cna Pct Relationship Specialty Start Date End Date PcpHeather MD [address] [place] [address] PCP - General Internal Medicine 09/15/23
--- OUTSIDE RECORDS SUMMARY | 2025-04-14 14:14 | XMS_ITS | Patient Health Record ---
Author Organization Kody [place] MD Address [address] [place], [place] [id number] Care Team Providers Care Education Analyst Name Role Phone Kody [place] Primary Care Provider Allergies No Known Allergies Results Component Value Reference Range Notes Hold Gold Reviewed date:11/08/2024 05:58:22 PM Interpretation: Performing Lab:[facility], [address] [place] [phone] Notes/Report: Aubrey George See Note Specimen held untested for 24 hours; Call to request Chemistry testing. Complete Blood Count Auto Di ff Reviewed date:11/08/2024 02:27:02 PM Interpretation: Performing Lab:[facility], [address] [place] [phone] Notes/Report: White Blood Count 6.0 4.8-10.8 X10*3/uL [...] Microscopic Reviewed date:11/08/2024 06:04:55 PM Interpretation: Performing Lab:[facility], [address] [place] [phone] Notes/Report: Color Urine Yellow Appearance Urine Clear PH 6.0 5.0-9.0 Glucose Urine UA Negative Negative mg/dL Urine Blood Negative Negative Specific [place] - Urine 1.015 1.005-1.025 Urine Protein Negative Neg-Trace mg/dL Urine Ketones Negative Negative mg/dL Nitrite Urine Negative Negative Leukocyte Esterase Urine Negative Negative RBC Urine 0-2 0-2 /HPF WBC Urine 0-5 0-5 /HPF Squamous Epithelial Cell Urine 0-2 0-2 /HPF Bacteria Urine None Seen None Seen Hyaline Casts Urine 0-2 0-2 /LPF Comprehensive [place]. Panel Fa st Reviewed date:11/08/2024 02:27:28 PM Interpretation: Performing Lab:[facility], [address] [place] [phone] Notes/Report: Sodium 139 135-145 mmol/L Potassium 4.8 [...] Amylase Reviewed date:11/08/2024 02:26:23 PM Interpretation: Performing Lab:[address] [phone] Notes/Report: Amylase 99 28-100 U/L Lipase Reviewed date:11/08/2024 02:26:31 PM Interpretation: Performing Lab:[address] [phone] Notes/Report: Lipase 23 8-78 U/L Urine Culture Reviewed date:11/09/2024 12:24:46 PM Interpretation: Performing Lab:[address] [phone] Notes/Report: Urine Culture No growth. Reason For Referral No Information Medications Medication SIG (Take, Route, Frequency, Duration) Notes Start Date End Date Status Atorvastatin Calcium 20 MG 1 tablet Orally Once a day Active Aspirin 81 81 MG 1 tablet Orally Once a day for 30 day(s) Active Atenolol 25 MG 1 tablet Orally Once a day Not-Taking traZODone HCl 50 MG 1 tablet at bedtime as needed Orally Once a day for 30 days 11/08/2024 Not-Taking Tamsulosin HCl 0.4 MG 2 caps Orally Once a day Active KlonoPIN 1 MG 1 tablet Orally Once a day Active Vitamin D 25 MCG (1000 UT) 1 tablet Orally Once a day for 30 day(s) Active Avodart 0.5 MG 1 capsule Orally Onc e a day for 90 days Active Irbesartan 75 MG 2 tablets Orally Onc e a day Active Warfarin Sodium 5 MG [...] Status W/U Status Risk Notes Problem Neutropenia (836553004) Neutropenia (D70.9) Active confirmed Problem 63369740 Prostatism (N40.0) Active confirmed Problem Insomnia (444009041) Insomnia (G47.00) Active confirmed Problem 38176015 Essential hypertension (I10) Active confirmed Problem 11809151 Hypercholesterem ia (E78.00) Active confirmed Problem 6626824756405 S/P TAVR (transcatheter aortic valve replacement) (Z95.2) Active confirmed Problem 591421603 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 Vital Signs Blood pressure diastolic 44 mm Hg 04/14/2025 rufus ght is down 1 pounds since 01-04-25 Height 68 in 04/14/2025 weight is down 1 pounds since 01-04-25 Blood pressure systolic 92 mm Hg 04/14/2025 weig ht is down 1 pounds since 01-04-25 Weight 153 lbs 04/14/2025 weight is down 1 pounds since 01-04-25 BMI 23.26 kg/m2 04/14/2025 weight is down 1 pounds since 01-04-25 Encounters Encounter Location Date Provider Diagnosis Kody [place] MD [address] [place] [address] [address] [place] [id number] 08/02/2024 Kody [place] Essential hypertensi on I10 ; 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 ; Indolent non-Hodgkins lymphoma C85.80 ; Hypercholesteremia E78.00 and S/P TAVR (transcatheter aortic valve replacement) Z95.2 Kody [place] MD [address] [place] [address] Drive [address] [place] [id number] 11/08/2024 Kody [place] Essential hypertensi on I10 ; Indolent non-Hodgkins lymphoma C85.80 ; S/P TAVR (transcatheter aortic valve replacement) Z95.2 ; Weight loss R63.4 ; Neutropenia D70.9 and Insomnia G47.00 Kody [place] MD [address] [place] [id number] 01/04/2025 oKdy [place] Essential hypertensi on I10 ; Weight loss R63.4 ; Neutropenia D70.9 and 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 Kody [place] MD [address] [place] [id number] 04/14/2025 Kody [place] Essential hypertensi on I10 and 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 Kody [place] MD [address] [place] [id number] 11/08/2024 Kody [place] MD [address] [place] [id number] 01/06/2025 Kody [place] 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 Kody [place] MD [address] [id number] 08/13/2024 Kody [place] Assessments Encounter Date Diagnosis [...] and if stays low to stop atenolol 04/14/2025 Essential hypertension (ICD-10 - I10) 01/06/2025 Prostatism (ICD-10 - N40.0) 08/02/2024 Indolent [...] not found anything on an etire exam 04/14/2025 Prostatism (ICD-10 - N40.0) 08/02/2024 Hypercholesteremia (ICD-10 - E78.00) is followed at [facility] when he get infusions, will continue current regiment and will continue to monitor 11/08/2024 Weight loss (ICD-10 - R63.4) is afraid to eat due to the constipation. 01/04/2025 Neutropenia (ICD-10 - D70.9) is stable, will cntinue to monitor 08/02/2024 S/P TAVR (transcatheter aortic valve replacement) (ICD-10 - Z95.2) is followed in [place] 11/08/2024 Neutropenia (ICD-10 - D70.9) will continue to monitor 01/04/2025 Prostatism (ICD-10 - N40.0) need notes from dr dexter 11/08/2024 Insomnia (ICD-10 - G47.00) will continue current regiment 01/04/2025 Other patient verbalized understanding of medicatin and directions for use Plan Of Treatment Next Appt Details Provider Name:Kody mack, 05/05/2025 07:15:00 AM, [address] [place] [address], [address], [id number], Provider Name:Kody marier, 05/12/2025 10:00:00 AM, [address] [place] [address], [address], [id number], Provider Name:Kody marier, 11/04/2025 07:45:00 AM, [address] [place] [address], [address], [id number], Provider Name:Kody marier, 11/11/2025 11:00:00 AM, [address] [place] [address], [address], [id number], Insurance Providers Payer Name Payer Address Payer Phone Subscriber Number Group Number Insured Name Patient Relationship to Insured Coverage Start Date Coverage End Date [facility] [address] [place] [phone] [id number] Joseph Talavera Self - patient is the insured Medical (General) History Medical History History ICD Code could not have colonoscopy due to valve and had FIT 2022 that was negative
--- OUTSIDE RECORDS SUMMARY | 2025-04-14 14:14 | XMS_ITS | Encounter Summary ---
Author Organization [facility] Address [address] [place] [address] Care Team Providers Care First Coat Operator Name Role Phone Renny Lieberman MD Unavailable [phone] Pcp, No Primary Care Provider Unavailabl e Encounter Details Date Type Department Care Team (Late st Contact Info) Description 02/28/2025 Telephone [facility] [address] [place] [address] [facility] [place] [address] [facility] [address] Social History Tobacco Use Types Packs/Day Years [...] Job Start Date Job End Date Retired [employer] Not on file Not on inga e [...] on filedocumented in this encounter Care Teams First Coat Operator Relationship Specialty Start Date End Date Pcp, No PCP - General General Medicine 01/07/24 Renny Lieberman MD [address] [place] [address] Primary Oracle Financials Developer Cardiovascular Disease 12/13/20 documented as of this encounter
--- OUTSIDE RECORDS SUMMARY | 2025-04-14 14:14 | XMS_ITS | Encounter Summary ---
Author Organization [facility] Address [address] [place] [address] Phone Care Team Providers Care Battery Starter Name Role Phone Luis Miguel Ambrocio MD Unavailable [phone] Renny Lieberman MD Primary Care Provider Un available Encounter Details Date Type Department Care Team (Late st Contact Info) Description 09/25/2023 Procedure Pass [facility] Cardiac US [address] [place] [address] Social History Tobacco Use Types Packs/Day Years [...] on filedocumented in this encounter Care Teams Battery Starter Relationship Specialty Start Date End Date Renny Lieberman MD [address] [place] [address] PCP - General Cardiology 01/03/22 Luis Miguel Ambrocio MD [address] [place] [address] [id number] [place] [address] [email or web address] Physical Therapy Professor Cardiology 08/03/21 documented as of this encounter Additional Source Comments The information contained in this document represents components of the legal health record. It is not the complete legal health record.[facility]
== END 2025-04-14 14:10 | disposition home or self-care (01) ==
LOC: HO.ACS 13:22
PROVIDERS: PCP Internal Medicine Hematology; Visit Provider Internal Medicine Medical Oncology
DX: Z79.01 Long term (current) use of anticoagulants (principal)

== ENCOUNTER → 2025-04-14 13:22 | Outpatient (BNVA) | payer OTHER, SELFPAY | PROVIDERS: PCP Internal Medicine Hematology; Visit Provider Internal Medicine Medical Oncology | DX: Z79.01 Long term (current) use of anticoagulants (principal) | CPT/HCPCS: 85610; 99212 ==

== ENCOUNTER 2025-07-18 13:50 | Outpatient (AMB) | payer OTHER, SELFPAY ==
[2025-07-18 14:18] LABS: Prothrombin Time Whole Bld POC 20.6 sec (11.1-13.5); ~PT, ~INR - Anti Coag Clinic 1.7 (0.9-1.1)
--- NOTE | 2025-07-18 14:32 | MHC.OFFVISCO ---
Intake Intake Visit Reasons: Anticoagulation Allergies No Known Allergies Allergy (Verified 07/18/25 14:03) Medication List - Last Reconciled 07/18/25 by Aida Alfaro RN alfuzosin ER 10 mg PO DAILY aspirin (Adult Aspirin Regimen) 81 mg PO DAILY atenolol 25 mg PO DAILY atorvastatin 20 mg PO DAILY chlorhexidine gluconate 0.12% PO cholecalciferol (vitamin D3) 25 mcg PO DAILY clonazepam (Klonopin) 1 mg PO .prn docusate sodium 100 mg PO BID PRN dutasteride (Avodart) 0.5 mg PO DAILY irbesartan 150 mg PO DAILY linaclotide (Linzess) 290 mcg PO QAM methenamine hippurate 1 g PO BID oxycodone 5 mg PO Q6H PRN warfarin 5 mg See Protocol PO DAILY Nursing Note Pt came for meter correlation, all results were as he reported, the meter needed to be cleaned - strip plate and port was stained with blood, strip plate cleaned and lid cleaned with alcohol gauze and allowed to dry before performing INR, pt demonstrated he can open and clothes the strip port and will clean it monthly or as needed with alcohol. Meter to Meter correlation 1.7 [facility] POC / Pt POC meter 1.8 INR: 1.7 below therapeutic range, pt healing from inguinal surg hernia, taking pro biotic for GI health, and daily prunes - he is able to move bowels and states the incision is healing, he self caths daily and trying to prevent UTI's. He may try some dietary sources to help along with starile technique and home bladder Ultra Sound Medications and supplements reviewed No changes in health, diet, medications, or supplements, Denies any signs and symptoms of bleeding or bruising or clotting. 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 Illness/Depression: Yes (ANXIETY) Questionnaires HAS-BLED Does the patient had uncontrolled Hypertension?: No Does the patient have renal disease?: No Does the patient have liver disease?: No Does the patient have a history of stroke?: No Has the patient had major bleeding or predisposition to bleeding?: Yes Does the patient have labile INRs?: Yes Is the patient over 65 years of age?: Yes Is the patient on medications that gives them a predisposition to bleeding?: Yes Does the patient use alcohol?: No HAS-BLED Score: 4 CHADSVASC Age: 75 or over Gender: Male Does the patient have a history of CHF?: No Does the patient have a history of Hypertension?: Yes Does the patient have a history of Stroke/TIA/Thromboembolism?: No Does the patient have a history of Vascular Disease (prior PA, PAD or aortic plaque)?: Yes (HALT ) Does the patient have a history of Diabetes?: No CHADS VACS Score: 4 Sina Prediction Score Rsk VTE Active Cancer: No Previous VTE, excluding superficial vein thrombosis: No Reduced mobility: No Already known Thrombophilic Condition: No With-in last month Trauma and/or Surgery: Yes (HERNIA REPAIR SURGERY ) Elderly 70 year or older: Yes Heart and/or Respiratory Failure: No Acute Myocardial infarction and/or Ischemic Stroke: No Acute Infection and/or Rheumatologic Disorder: No Obesity (BMI 30 or greater): No Ongoing Hormonal Treatment: No Score: 3 Sina Score less than 4; Low Risk of VTE Sina Score 4 or greater; High Risk of VTE Coding Level of Care Code Est Patient Level 1 Diagnoses Current use of anticoagulant therapy Z79.01 Assessment & Plan Assessment & Plan (1) Current use of anticoagulant therapy: Code(s): Z79.01 - detention (current) use of anticoagulants Category: Medical
--- OUTSIDE RECORDS SUMMARY | 2025-07-19 03:12 | XMS_ITS | Encounter Summary ---
Author Organization [facility] Address [address] [place] [address] Care Team Providers Care Brazer Repair And Salvage Name Role Phone Renny Lieberman MD Unavailable Joseph Talavera MD Primary Care Provider [phone] Renny Lieberman MD Primary Care Provider [phone] Pcp, No Primary Care Provider Unavailabl e Encounter Details Date Type Department Care Team (Late st Contact Info) Description 02/27/2021 Scanned Document [facility] Cancer [place] [facility] at [address] [id number] Estiven Larson MD [address] [place] [address] Social History Tobacco Use Types Packs/Day Years [...] on filedocumented in this encounter Care Teams Brazer Repair And Salvage Relationship Specialty Start Date End Date Joseph Talavera MD 4 [facility] [place] [place] [address] PCP - General Internal Medicine 12/25/20 04/17/23 Renny Lieberman MD 4 [facility] [place] [address] PCP - General Cardiovascular Disease 04/18/23 01/06/24 Pcp, No PCP - General General Medicine 01/07/24 Renny Lieberman MD [address] [address] Primary Nurse Orthopaedic Cardiovascular Disease 12/13/20 documented as of this encounter
--- OUTSIDE RECORDS SUMMARY | 2025-07-19 03:13 | XMS_ITS | Encounter Summary ---
Author Organization [facility] Address [address] [place] [address] Care Team Providers Care Access Director Name Role Phone Renny Lieberman MD Unavailable [phone] Renny Lieberman MD Primary Care Provider [phone] Pcp, No Primary Care Provider Unavailabl e Encounter Details Date Type Department Care Team (Late st Contact Info) Description 12/31/2023 Scanned Document [facility] Heart & Vascular [place] [address] [facility] [address] [place] [address] Renny Lieberman MD [address] [place] [address] Social History Tobacco Use Types Packs/Day Years [...] on filedocumented in this encounter Care Teams Access Director Relationship Specialty Start Date End Date Renny Lieberman MD [address] [employer] [place] [address] [place] [address] PCP - General Cardiovascular Disease 04/18/23 01/06/24 Pcp, No PCP - General General Medicine 01/07/24 Renny Lieberman MD [address] [address] Primary Auto Air Conditioning Installer Cardiovascular Disease 12/13/20 documented as of this encounter
--- OUTSIDE RECORDS SUMMARY | 2025-07-19 03:13 | XMS_ITS | Encounter Summary ---
Author Organization [facility] Address [address] [place] [address] Care Team Providers Care Sterile Processing Technologist Name Role Phone Renny Lieberman MD Unavailable [phone] Pcp, No Primary Care Provider Unavailabl e Encounter Details Date Type Department Care Team (Late st Contact Info) Description 01/30/2024 Scanned Document [facility] Heart & Vascular [place] [address] [facility], [address] [place] [address] Renny Lieberman MD [address] [place] [address] Social History Tobacco Use Types Packs/Day Years [...] on filedocumented in this encounter Care Teams Sterile Processing Technologist Relationship Specialty Start Date End Date Pcp, No PCP - General General Medicine 01/07/24 Renny Lieberman MD [address] [place] [address] Primary Department Traffic Freight Router Cardiovascular Disease 12/13/20 documented as of this encounter
--- OUTSIDE RECORDS SUMMARY | 2025-07-19 03:14 | XMS_ITS | Encounter Summary ---
Author Organization [facility] Address [address] [place] [address] Care Team Providers Care Animated Cartoons Painter Name Role Phone Renny Lieberman MD Unavailable [phone] Joseph Talavera MD Primary Care Provider [phone] Renny Lieberman MD Primary Care Provider [phone] Pcp, No Primary Care Provider Unavailabl e Encounter Details Date Type Department Care Team (Late st Contact Info) Description 09/17/2022 Scanned Document [facility] Heart & Vascular [facility] [address] [place] [phone] Renny Lieberman MD [address] [place] [address] Social History Tobacco Use Types Packs/Day Years [...] on filedocumented in this encounter Care Teams Animated Cartoons Painter Relationship Specialty Start Date End Date Joseph Talavera MD 4 [facility] [place] [address] PCP - General Internal Medicine 12/25/20 04/17/23 Renny Lieberman MD 4 [facility] [place] [address] PCP - General Cardiovascular Disease 04/18/23 01/06/24 Pcp, No PCP - General General Medicine 01/07/24 Renny Lieberman MD 111 [facility] [address] [place] [address] Primary Pharmacy Technician Cardiovascular Disease 12/13/20 documented as of this encounter
--- OUTSIDE RECORDS SUMMARY | 2025-07-19 03:15 | XMS_ITS | Encounter Summary ---
Author Organization [facility] Address [address] [place] [address] Care Team Providers Care Dietitian Chief Name Role Phone Renny Lieberman MD Unavailable [phone] Joseph Talavera MD Primary Care Provider [phone] Renny Lieberman MD Primary Care Provider [phone] Pcp, No Primary Care Provider Unavailabl e Encounter Details Date Type Department Care Team (Late st Contact Info) Description 01/04/2022 Scanned Document [facility] Vascular [place] [address] [facility], [address] [place] [address] Renny Lieberman MD [address] [place] [address] Social History Tobacco Use Types Packs/Day [...] on filedocumented in this encounter Care Teams Dietitian Chief Relationship Specialty Start Date End Date Joseph Talavera MD [address] [place] [address] PCP - General Internal Medicine 12/25/20 04/17/23 Renny Lieberman MD [address] [place] [address] PCP - General Cardiovascular Disease 04/18/23 01/06/24 Pcp, No PCP - General General Medicine 01/07/24 Renny Lieberman MD [address] [place] [address] Primary Skein Yard Drier Cardiovascular Disease 12/13/20 documented as of this encounter
--- OUTSIDE RECORDS SUMMARY | 2025-07-19 03:15 | XMS_ITS | Encounter Summary ---
Author Organization [facility] Address [address] [place] [address] Care Team Providers Care Dictating Machine Typist Name Role Phone Renny Lieberman MD Unavailable [phone] Joseph Talavera MD Primary Care Provider Renny Lieberman MD Primary Care Provider [phone] Pcp, No Primary Care Provider Unavailabl e Encounter Details Date Type Department Care Team (Late st Contact Info) Description 02/04/2022 Scanned Document [facility] Heart & Vascular [place] 100 [facility], [address] [place] [address] Renny Lieberman MD [address] [place] [address] Social History Tobacco Use Types Packs/Day [...] on filedocumented in this encounter Care Teams Dictating Machine Typist Relationship Specialty Start Date End Date Joseph Talavera MD [address] [place] [address] PCP - General Internal Medicine 12/25/20 04/17/23 Renny Lieberman MD [address] [place] [address] PCP - General Cardiovascular Disease 04/18/23 01/06/24 Pcp, No PCP - General General Medicine 01/07/24 Renny Lieberman MD [address] [place] [address] Primary Wire Steward Cardiovascular Disease 12/13/20 documented as of this encounter
--- OUTSIDE RECORDS SUMMARY | 2025-07-19 03:16 | XMS_ITS | Clinical Summary ---
Author Organization [facility] Address [address] [place] [address] Care Team Providers Care Gang Miner Name Role Phone Renny Lieberman MD Unavailable [phone] Pcp, No Primary Care Provider Unavailabl [...] gradient 40s. S/p TAVR January 20' -[facility] Diastolic dysfunction 12/13/2020 Overview (12/13/2020): Grade 2 [...] 01/06/2024 10:15 AM EDT Plan of Treatment Health Maintenance Due Date Last Done Comments Advance Care Planning 1950 Hepatitis C Virus Screening 1950 DTaP/Tdap/Td Vaccines (1 - Tdap) 11/16/1967 Pneumococcal Vaccines 50+ (1 of 2 - PCV) 11/16/1967 Zoster (Shingles) Vaccine (1 of 2) 1998 DXA Bone Density (Females,Ag es 65 and older) 2013 RSV Vaccine 50 years and old er and Patients (1 - 1-dose 75+ series) 11/16/2023 Influenza Vaccine 04/01/2025 COVID-19 Vaccine ( - 2023-2 5 season) 2025 Hepatitis B Vaccines Aged Out No long er eligible based on patient's age to complete this topic Insurance [facility] Care Teams Gang Miner Relationship Specialty Start Date End Date Pcp, No PCP - General General Medicine 01/07/24 Renny Lieberman MD [address] [address] Primary Automotive Drivability Technician Cardiovascular Disease 12/13/20
--- OUTSIDE RECORDS SUMMARY | 2025-07-19 03:16 | XMS_ITS | Encounter Summary ---
Author Organization [facility] Address [address] [place] [id number] Care Team Providers Care Scheduling Specialist Name Role Phone Renny Lieberman MD Unavailable [phone] Joseph Talavera MD Primary Care Provider [phone] Renny Lieberman MD Primary Care Provider [phone] Pcp, No Primary Care Provider Unavailabl e Encounter Details Date Type Department Care Team (Late st Contact Info) Description 02/16/2021 Scanned Document [facility] [place] [address] [facility], [address] [place] [address] Renny Lieberman MD [address] [place] [id number] Social History Tobacco Use Types Packs/Day [...] on filedocumented in this encounter Care Teams Scheduling Specialist Relationship Specialty Start Date End Date Joseph Talavera MD [address] [place], [place] [id number] PCP - General Internal Medicine 12/25/20 04/17/23 Renny Lieberman MD [address] [place] [address] PCP - General Cardiovascular Disease 04/18/23 01/06/24 Pcp, No PCP - General General Medicine 01/07/24 Renny Lieberman MD [address] [facility] [address] [place] [address] Primary Cigarette Lighter Repairer Cardiovascular Disease 12/13/20 documented as of this encounter
--- OUTSIDE RECORDS SUMMARY | 2025-07-19 03:17 | XMS_ITS | Clinical Summary ---
Author Organization [facility] Address [address] [place] [address] Care Team Providers Care Leveling Machine Operator Name Role Phone Pcp, No MD Primary [...] mouth daily as needed. 02/23/2021 Active omega 0-ajn-kgv-fish oil (Fish OiL) 1,000 mg (120 mg-180 [...] Hemoglobin Negative Negative 09/25/2023 2:11 PM EST [facility] Comment:This is a screening test [...] FLUIDS AND STOOLS SHRUTI ERAZO Final Result [facility] [address] [place] [address], [place] [phone] from Last 3 Months or Most Recently Relevant to Health Maintenance Insurance [facility] [id number] Care Teams Leveling Machine Operator Relationship Specialty Start Date End Date PcpHeather MD [address] [place] [address] PCP - General Internal Medicine 09/15/23
== END 2025-07-18 16:37 | disposition home or self-care (01) ==
LOC: HO.ACS 13:50
PROVIDERS: PCP Internal Medicine Hematology; Visit Provider Internal Medicine Medical Oncology
DX: Z79.01 Long term (current) use of anticoagulants (principal)

== ENCOUNTER → 2025-07-18 13:50 | Outpatient (BNVA) | payer OTHER, SELFPAY | PROVIDERS: PCP Internal Medicine Hematology; Visit Provider Internal Medicine Medical Oncology | DX: Z79.01 Long term (current) use of anticoagulants (principal) | CPT/HCPCS: 85610; 99211 ==